=== PATIENT | male | born 1940 | race Caucasian/White ===

== ENCOUNTER 2016-11-02 10:51 | Day surgery (SDC) | payer MEDICARE, BC ==
[2016-11-02] MEDS ORDERED: CYCLOPENTOLATE 1% OPHTH DROPS 2 ML OPTH ONE (11:15)
[2016-11-02] MEDS ORDERED: TROPICAMIDE 1% OPHTH 2 ML DROPS OPTH ONE (11:15)
[2016-11-02] MEDS ORDERED: KETOROLAC 0.45% OPHTH DROPS OPTH ONE (11:15)
[2016-11-02] MEDS ORDERED: LACTATED RINGERS 500 ML IV ONE (11:20)
[2016-11-02] MEDS ORDERED: MIDAZOLAM 2 MG/2 ML VIAL IVP ONE (11:55)
[2016-11-02] MEDS ORDERED: PROPARACAINE 0.5% OPHTH DROPS 15 ML OPTH ONE (12:35)
[2016-11-02] MEDS ORDERED: BRIMONIDINE 0.2% OPHTH DROPS 5 ML OPTH ONE (12:35)
[2016-11-02] MEDS ORDERED: TETRACAINE OPHTH DROPS 2 ML OPTH ONE (12:36)
[2016-11-02] MEDS ORDERED: levoFLOXacin 0.5% OPHTH DROPS 5 ML OPTH ONE (12:36)
[2016-11-02] MEDS ORDERED: EPINEPHrine 1 MG/ML AMP IO ONE (12:36)
[2016-11-02] MEDS ORDERED: CHONDR SULF/HYALURONATE SYRINGE IO ONE (12:36)
[2016-11-02] MEDS ORDERED: BSS/LIDOCAINE/EPINEPHRINE 1 ML SYRINGE IO ONE (12:37)
== END 2016-11-02 10:52 | disposition home or self-care (01) ==
PROC: 08RK3JZ Replacement of Left Lens with Synthetic Substitute, Percutaneous Approach (ICD-10-PCS; principal; 2016-11-02 12:00)
DX: H25.12 Age-related nuclear cataract, left eye (principal); I10 Essential (primary) hypertension; Z87.891 Personal history of nicotine dependence
CPT/HCPCS: 66984; V2632

== ENCOUNTER 2016-11-30 11:59 | Day surgery (SDC) | payer MEDICARE, BC ==
[2016-11-30] MEDS ORDERED: CYCLOPENTOLATE 1% OPHTH DROPS 2 ML OPTH ONE (12:30)
[2016-11-30] MEDS ORDERED: TROPICAMIDE 1% OPHTH 2 ML DROPS OPTH ONE (12:30)
[2016-11-30] MEDS ORDERED: KETOROLAC 0.45% OPHTH DROPS OPTH ONE (12:30)
[2016-11-30] MEDS ORDERED: LACTATED RINGERS 500 ML IV ONE (12:44)
[2016-11-30] MEDS ORDERED: CHONDR SULF/HYALURONATE SYRINGE IO ONE (13:16)
[2016-11-30] MEDS ORDERED: EPINEPHrine 1 MG/ML AMP IO ONE (13:16)
[2016-11-30] MEDS ORDERED: BRIMONIDINE 0.2% OPHTH DROPS 5 ML OPTH ONE (13:16)
[2016-11-30] MEDS ORDERED: levoFLOXacin 0.5% OPHTH DROPS 5 ML OPTH ONE (13:16)
[2016-11-30] MEDS ORDERED: BSS/LIDOCAINE/EPINEPHRINE 1 ML SYRINGE IO ONE (13:16)
[2016-11-30] MEDS ORDERED: PROPARACAINE 0.5% OPHTH DROPS 15 ML OPTH ONE (13:16)
[2016-11-30] MEDS ORDERED: PROPOFOL 200 MG/20 ML VIAL IVP ONE (13:30)
[2016-11-30] MEDS ORDERED: MIDAZOLAM 2 MG/2 ML VIAL IVP ONE (13:30)
[2016-11-30] MEDS ORDERED: LIDOCAINE-MPF 2% 5 ML VIAL IM ONE (13:30)
== END 2016-11-30 12:00 | disposition home or self-care (01) ==
PROC: 08RJ3JZ Replacement of Right Lens with Synthetic Substitute, Percutaneous Approach (ICD-10-PCS; principal; 2016-11-30 13:05)
DX: H25.11 Age-related nuclear cataract, right eye (principal); I10 Essential (primary) hypertension
CPT/HCPCS: 66984; V2632

== ENCOUNTER 2017-11-02 15:13 | Emergency (ER) | payer MEDICARE, BC ==
--- NOTE | 2017-11-02 16:34 | XRAY Report ---
EXAM: CHEST RADIOGRAPHY EXAM DATE: 11/02/2017 04:21 PM. CLINICAL HISTORY: Fever cough. COMPARISON: None. TECHNIQUE: 2 views. FINDINGS: Lungs/Pleura: There are mild linear densities at both lung bases. There are streaky posterior densiti es on the lateral image. No consolidation. Upper lung zones are clear. Mediastinum: Heart size is normal. There is mild tortuosity of the aorta. Other: None. IMPRESSION: 1. Mild linear and streaky basilar densities. Differential includes atelectasis, scar, or a mild patc hy bronchopneumonia or bronchiolitis. No consolidation. [facility] Referring Provider Line: [phone] SITE ID: [id number]
[2017-11-02] MEDS ORDERED: AZITHROMYCIN 250 MG TABLET PO STA (17:04)
[2017-11-02] MEDS ORDERED: DOXYCYCLINE 100 MG TABLET PO STA (17:06)
[2017-11-02] MEDS ORDERED: OSELTAMIVIR 75 MG CAPSULE PO STA (17:06)
[2017-11-02 17:07] VITALS: BP 127/67
--- NOTE | 2017-11-02 17:09 | ED Physician Documentation ---
PD HPI URI - Stated complaint Stated Complaint: FEVER, LETHARGY - Chief complaint Chief Complaint: Fever - History obtained from History obtained from: Patient - History of Present Illness Timing - onset: Other (Sick for 2 days with fevers, chills, mild productive cough but no body aches. He is eating and drinking okay. Sent from the office to rule out flu and pneumonia.) Review of Systems Constitutional: reports: Fever, Chills. denies: Myalgias Nose: reports: Rhinorrhea / runny nose Respiratory: reports: Cough. denies: Dyspnea PD PAST MEDICAL HISTORY - Past Medical History Past Medical History: Yes Cardiovascular: Hypertension, High cholesterol Respiratory: None Endocrine/Autoimmune: None GI: None : None Psych: None Musculoskeletal: Osteoarthritis - Past Surgical History General: Appendectomy Ortho: Rotator cuff repair - Present Medications Home Medications: Ambulatory Orders Medication Instructions Recorded Confirmed Atorvastatin Calcium [Lipitor] 20 mg ORAL DAILY 07/10/14 11/02/17 Aspirin 81 mg PO DAILY 11/01/16 11/02/17 Blood Pressure Pill 11/02/17 Doxycycline Hyclate 100 mg PO BID #14 tablet 11/02/17 Oseltamivir [Tamiflu] 75 mg PO BID #10 capsule 11/02/17 - Allergies Allergies/Adverse Reactions: Allergies Allergy/AdvReac Type Severity Reaction Status Date / Time Sulfa (Sulfonamide Allergy Unknown Verified 11/02/17 15:50 Antibiotics) - Social History Does the pt smoke?: No Smoking Status: Never smoker PD ED PE NORMAL - Vitals Vital signs reviewed: Yes - General General: Alert and oriented X 3, No acute distress - HEENT HEENT: PERRL, EOMI - Neck Neck: Supple, no meningeal sign, No bony TTP - Cardiac Cardiac: RRR, No murmur - Respiratory Respiratory: Other (Rhonchi at the left base) - Back Back: No CVA TTP, No spinal TTP - Derm Derm: No rash - Neuro Neuro: Alert and oriented X 3, Normal speech Results - Vitals Vitals: Vital Signs - 24 hr 11/02/17 11/02/17 15:48 17:06 Temperature 37.8 C H 37.8 C H Heart Rate 71 73 Respiratory 18 20 Rate Blood Pressure 125/76 127/67 O2 Saturation 95 95 Oxygen O2 Source Room air - Labs Labs: Laboratory Tests 11/02/17 16:50 Influenza A (Rapid) POSITIVE H Influenza B (Rapid) Negative Influenza Types A,B Ag + H - Rads (name of study) 2v chest Radiology: EMP read contemporaneously (Streaky bibasilar densities) PD MEDICAL DECISION MAKING - ED course ED course: Relatively healthy 77-year-old gentleman who presents with both influenza and potential pneumonia and he was treated for both. Vitals are unremarkable. Departure - Departure Disposition: 01 Home, Self Care Clinical Impression: Influenza A Pneumonia Qualifiers: Pneumonia type: due to unspecified organism Laterality: bilateral Lung location : lower lobe of lung Qualified Code(s): J18.9 - Pneumonia, unspecified organism Condition: Good Record reviewed to determine appropriate education?: Yes Instructions: Pneumonia Dc, Medication: Tamiflu (Oseltamivir), ED Flu Prescriptions: Doxycycline Hyclate 100 mg PO BID #14 tablet Oseltamivir [Tamiflu] 75 mg PO BID #10 capsule Comments: Tylenol or ibuprofen as needed for fever. Drink plenty of fluids. Return if worse. Follow-up with your doctor tomorrow.
== END 2017-11-02 17:19 | disposition home or self-care (01) ==
LOC: ED 15:13
DX: J10.00 Influenza due to other identified influenza virus with unspecified type of pneumonia (principal); I10 Essential (primary) hypertension; E78.00 Pure hypercholesterolemia, unspecified
CPT/HCPCS: 71046; 87275; 87276; 99283; A9270; 80048; 83605; 85025; 87040

== ENCOUNTER 2018-11-30 13:12 | Outpatient (CLI) | payer MEDICARE, BC ==
--- NOTE | 2018-12-03 16:28 | DEXA Report ---
Reason: AGE RELATED OSTEOPOROSIS Procedure Date: 11/30/2018 Accession Number: [id number] / [id number] Procedure: DEX - Dexa Spine and/or Hip CPT Code: FULL RESULT: EXAM: Dexa Spine and/or Hip DATE: 11/30/2018 1:52 PM CLINICAL HISTORY: AGE RELATED OSTEOPOROSIS TECHNIQUE: Dual energy x-ray absorptiometry (DXA) was performed on a [employer]. Regions measured are the AP Spine, femoral neck, and if needed forearm. COMPARISON: None. In accordance with the International Society for Clinical Densitometry (ISCD) guidelines, data from previous exams may be reanalyzed using current recommendations and techniques. This is done to allow a more accurate basis for comparison with the current study. FINDINGS: The data for the lumbar spine is as follows: BMD (g/cm/cm) T-SCORE Z-SCORE REGION L1 1.520 3.0 3.9 L2 1.675 3.6 4.5 L3 2.011 6.4 7.3 L4 1.915 5.6 6.5 TOTAL 1.803 4.9 5.8 NOTE: All evaluable vertebrae are used for classification The data for the hip is as follows: BMD (g/cm/cm) T-SCORE Z-SCORE REGION Neck 1.197 1.0 2.7 TOTAL 1.287 1.3 2.6 NOTE: The femoral neck or total proximal femur, whichever is lowest, is used for classification. IMPRESSION: THE WHO CLASSIFICATION BASED ON THE INTERNATIONAL REFERENCE STANDARD IS NORMAL. THE FRACTURE RISK IS NOT INCREASED. RECOMMENDATION: Patients with diagnosis of osteoporosis or osteopenia should have regular bone mineral density assessment. For those eligible for Medicare, routine testing is allowed once every 2 years. Testing frequency can be increased for patients who have rapidly progressing disease or for those who are receiving medical therapy to restore bone mass. COMMENT: World Health Organization (WHO) definitions for osteoporosis and osteopenia: NORMAL BMD: T-score at -1.0 or higher, fracture risk is low OSTEOPENIA BMD: T-score between -1.0 and -2.5, fracture risk is increased. OSTEOPOROSIS BMD: T-score at -2.5 or lower, fracture risk is high. National Osteoporosis Foundation recommends: 1. Obtain adequate dietary calcium (at least 1200 mg per day) and vitamin D (400-800 international units per day). 2. Participate, as appropriate, in regular weightbearing and muscle-strengthening exercise. 3. Avoid tobacco use and reduce alcohol and caffeine intake. 4. For more detailed information see the website at www.NOF.org.
== END 2018-11-30 13:13 | disposition home or self-care (01) ==
LOC: DI 13:12
PROVIDERS: ATTEND Family Medicine
DX: M81.0 Age-related osteoporosis without current pathological fracture (principal); M40.209 Unspecified kyphosis, site unspecified
CPT/HCPCS: 77080

== ENCOUNTER 2019-07-09 21:06 | Outpatient (CLI) | payer MEDICARE, BC | END 2019-07-09 21:07 | disposition short-term general hospital (02) | LOC: EMS 21:06 | PROVIDERS: ATTEND Surgery | DX: R55 Syncope and collapse (principal) | CPT/HCPCS: A0425; A0429 ==

== ENCOUNTER 2019-10-31 08:48 | Outpatient (CLI) | payer MEDICARE | END 2019-10-31 08:49 | disposition EMS.NT | LOC: EMS 08:48 | PROVIDERS: ATTEND Surgery | DX: R06.02 Shortness of breath (principal) ==

== ENCOUNTER 2020-09-29 11:06 | Outpatient (CLI) | payer MEDICARE, OTHER ==
[2020-09-29 16:13] LABS: ALBUMIN 4.4 g/dL (3.2-5.5); ALBUMIN/GLOBULIN RATIO 1.7 (1.0-2.2); BILIRUBIN,TOTAL 0.6 mg/dL (0.2-1.0); CALCIUM 9.2 mg/dL (8.5-10.3); CREATININE 0.8 mg/dL (0.6-1.2)
== END 2020-09-29 11:07 | disposition home or self-care (01) ==
LOC: LAB.S 11:06
PROVIDERS: ATTEND Internal Medicine
DX: Z00.00 Encounter for general adult medical examination without abnormal findings (principal)
CPT/HCPCS: 36415; 80053; 85025

== ENCOUNTER 2020-10-05 07:41 | Outpatient (CLI) | payer MEDICARE, OTHER ==
[2020-10-05 15:18] LABS: BASOPHILS % (AUTO) 0.2 %; EOSINOPHILS # (AUTO) 0.3 10^3/uL (0.0-0.7); EOSINOPHILS % (AUTO) 5.2 %; HGB - HEMOGLOBIN 13.4 g/dL (14.0-18.0); LYMPHOCYTES # (AUTO) 0.7 10^3/uL (1.5-3.5); MEAN CORPUSCULAR HGB CONC 32.6 g/dL (32.0-36.0); MEAN CORPUSCULAR VOLUME 95.1 fL (80.0-94.0); MEAN PLATELET VOLUME 10.7 fL (7.4-11.4); MONOCYTES # (AUTO) 0.6 10^3/uL (0.0-1.0); MONOCYTES % (AUTO) 12.8 %; NEUTROPHILS # (AUTO) 3.4 10^3/uL (1.5-6.6); NEUTROPHILS % (AUTO) 68.4 %; PLT - PLATELET COUNT 159 10^3/uL (130-450); RED BLOOD COUNT 4.32 10^6/uL (4.70-6.10); RED CELL DISTRIBUTION WIDTH 13.7 % (12.0-15.0)
== END 2020-10-05 07:42 | disposition home or self-care (01) ==
LOC: LAB.S 07:41
PROVIDERS: ATTEND Internal Medicine
DX: I48.0 Paroxysmal atrial fibrillation (principal); Z79.899 Other long term (current) drug therapy; R27.9 Unspecified lack of coordination
CPT/HCPCS: 36415; 85025

== ENCOUNTER 2020-10-13 14:37 | Outpatient (CLI) | payer MEDICARE, OTHER | END 2020-10-13 14:38 | disposition home or self-care (01) | LOC: LAB.S 14:37 | PROVIDERS: ATTEND Internal Medicine | DX: R35.8 Other polyuria (principal); R35.1 Nocturia | CPT/HCPCS: 36415; 84153 ==

== ENCOUNTER 2020-11-10 21:07 | Outpatient (CLI) | payer MEDICARE, OTHER | END 2020-11-10 21:08 | disposition critical access hospital (66) | LOC: EMS 21:07 | PROVIDERS: ATTEND Surgery | DX: S01.91XA Laceration without foreign body of unspecified part of head, initial encounter (principal); W06.XXXA Fall from bed, initial encounter; W22.03XA Walked into furniture, initial encounter; Y93.89 Activity, other specified; Y92.003 Bedroom of unspecified non-institutional (private) residence as the place of occurrence of the external cause | CPT/HCPCS: A0425; A0429 ==

== ENCOUNTER 2020-11-10 21:33 | Emergency (ER) | payer MEDICARE, OTHER ==
--- NOTE | 2020-11-10 21:43 | ED Physician Documentation ---
PD HPI Fall - Stated complaint Stated Complaint: FALL - History obtained from History obtained from: Patient - History of Present Illness Mechanism of injury: Lost balance (He states he was sitting on the edge of the bed and slipped and fell backwards from sitting position and struck his head on furniture. He noted bleeding laceration. No loss of consciousness. Denied neck pain. Had a small skin tear on the elbow and side of the face. EMS was called.) Fall distance: Sitting position Where injury occurred: Home Timing - onset: How many minutes ago (30), Today Injury(ies) location: Head (left occiput), Face (lateral periorbital left), Left Uppper Extremity (lateral elbow) Associated symptoms: No: LOC, AMS, Nausea / vomiting Worsens with: Palpation Contributing factors: Anticoagulated. No: Intoxicated Similar symptoms before: Has not had sx before Recently seen: Not recently seen Review of Systems Constitutional: denies: Fever, Chills Nose: denies: Rhinorrhea / runny nose, Congestion Throat: denies: Sore throat Respiratory: denies: Cough GI: denies: Nausea, Vomiting, Diarrhea Neurologic: denies: Focal weakness, Numbness, Altered mental status PD PAST MEDICAL HISTORY - Past Medical History Cardiovascular: Hypertension, High cholesterol Respiratory: None Endocrine/Autoimmune: None GI: None : None Psych: None Musculoskeletal: Osteoarthritis - Past Surgical History General: Appendectomy Ortho: Rotator cuff repair - Present Medications Home Medications: Ambulatory Orders Medication Instructions Recorded Confirmed Atorvastatin Calcium [Lipitor] 20 mg ORAL DAILY 07/10/14 11/02/17 Aspirin 81 mg PO DAILY 11/01/16 11/02/17 Blood Pressure Pill 11/02/17 Doxycycline Hyclate 100 mg PO BID #14 tablet 11/02/17 Oseltamivir [Tamiflu] 75 mg PO BID #10 capsule 11/02/17 - Allergies Allergies/Adverse Reactions: Allergies Allergy/AdvReac Type Severity Reaction Status Date / Time Sulfa (Sulfonamide Allergy Unknown Verified 11/02/17 15:50 Antibiotics) - Social History Does the pt smoke?: No Smoking Status: Never smoker PD ED PE NORMAL - Vitals Vital signs reviewed: Yes - General General: Alert and oriented X 3, No acute distress, Well developed/nourished - HEENT HEENT: PERRL, EOMI (Left lateral periorbital area with a superficial skin tear about 1 cm. Not full-thickness.), Moist mucous membranes, Pharynx benign, Other (The patient has a Kerlix wrap wrapped circumferentially around his head. There is saturation of blood in the posterior aspect of this and down behind his head. He is in a cervical collar but not on a backboard. He is awake and conversant. dressing removed and spurting blood noted from 3 cm lac.) - Neck Neck: Supple, no meningeal sign, No bony TTP, No adenopathy - Respiratory Respiratory: No respiratory distress, Clear bilaterally - Abdomen Abdomen: Soft, Non tender - Back Back: No spinal TTP - Derm Derm: Normal color, Warm and dry - Extremities Extremities: Other (Lateral left elbow with the partial thickness tear of skin about 1-1/2 cm. Full range of motion of the elbow without any effusion nor bony tenderness.) - Neuro Neuro: Alert and oriented X 3, No motor deficit, Normal speech Results - Vitals Vitals: Vital Signs - 24 hr 11/10/20 11/11/20 11/11/20 21:40 00:16 02:00 Temperature 36.9 C 36.6 C 36.6 C Heart Rate 69 54 L 69 Respiratory 18 16 18 Rate Blood Pressure 183/103 H 122/74 121/57 L O2 Saturation 100 99 98 11/11/20 02:16 Temperature 36.7 C Heart Rate 69 Respiratory 18 Rate Blood Pressure 121/57 L O2 Saturation 98 Oxygen O2 Source Room air - Labs Labs: Laboratory Tests 11/10/20 11/10/20 22:25 22:25 WBC 6.0 RBC 3.99 L Hgb 12.2 L Hct 36.6 L MCV 91.7 MCH 30.6 MCHC 33.3 RDW 13.5 Plt Count 144 MPV 9.6 Neut # (Auto) 4.2 Lymph # (Auto) 0.8 L Kaufman # (Auto) 0.9 Eos # (Auto) 0.2 Baso # (Auto) 0.0 Absolute Nucleated RBC 0.00 Nucleated RBC % 0.0 Sodium 129 L Potassium 4.0 Chloride 94 L Carbon Dioxide 26 Anion Gap 9.0 BUN 21 H Creatinine 1.0 Estimated GFR (MDRD) 72 L Glucose 126 H Calcium 8.6 Total Bilirubin 0.6 AST 30 ALT 21 Alkaline Phosphatase 100 Total Protein 6.5 L Albumin 4.0 Globulin 2.5 Albumin/Globulin Ratio 1.6 Lipase 21 L - Rads (name of study) head CT Radiology: Prelim report reviewed (no intracranial process), See rad report Procedures - Laceration (location) left upper occipital Length in cm: 3 Wound type: Linear, Into muscle, Clean Neurovascular status: Sensory intact Anesthesia: Lidocaine 2% with epi Wound Preparation: Wound explored (The wound had brisk small arterial bleeding ongoing. It was anesthetized quickly and cleansed with saline quickly as well. Vicryl stitch was used to ligate the area of the bleeding vessel with mostly cessation of the bleeding. Running suture of the scalp was then placed with then complete stoppag), To the base Deep layer closure: Vicryl, size #-0 - enter number (4), # sutures - enter number (3) Skin layer closure: Nylon, Running, Size #-0 - enter number (4), Sutures - enter # (10) PD MEDICAL DECISION MAKING - ED course Complexity details: re-evaluated patient (Now it is not the patient did have a reasonable blood loss a while prehospital and having the sutures placed. He was lightheaded with sitting up subsequently. He was given IV fluids with improvement in his blood pressure and orthostasis.), considered differential (Benzoin and Steri-Strips were placed over the small skin tear left periorbital and left elbow.), d/w patient Departure - Departure Disposition: 01 Home, Self Care Clinical Impression: Anticoagulant long-term use Accidental fall Qualifiers: Encounter type: initial encounter Qualified Code(s): W19.XXXA - Unspecified fall, initial encounter Scalp laceration Qualifiers: Encounter type: initial encounter Qualified Code(s): S01.01XA - Laceration without foreign body of scalp, initial encounter Laceration of periorbital area Qualifiers: Encounter type: initial encounter Qualified Code(s): S01.81XA - Laceration without foreign body of other part of head, initial encounter Elbow laceration Qualifiers: Encounter type: initial encounter Laterality: left Qualified Code(s): S51.012A - Laceration without foreign body of left elbow, initial encounter Condition: Stable Record reviewed to determine appropriate education?: Yes Instructions: ED Laceration Scalp Stitch Or Stap Comments: It is okay to wash and shower. Clean off the wound twice a day with soap and water, or peroxide and water. Apply some antibiotic ointment to it to keep it moist. Also to watch for signs of infection such as purulence, redness or incr easing pain. Return to your primary care or the ER at the specified time for suture removal. Suture removal in the scalp in about 10 days. It is okay to wash and shower there. Try to not get the Steri-Strips on the elbow and face directly wet but allow them to fall off on their own after several days or more. Tylenol if needed for pains. Continue usual medications. Discharge Date/Time: 11/11/20 02:17
[2020-11-11 00:11] LABS: ALBUMIN/GLOBULIN RATIO 1.6 (1.0-2.2); BILIRUBIN,TOTAL 0.6 mg/dL (0.2-1.0); CALCIUM 8.6 mg/dL (8.5-10.3); TOTAL PROTEIN 6.5 g/dL (6.7-8.2)
[2020-11-11 00:13] LABS: BASOPHILS % (AUTO) 0.2 %; EOSINOPHILS # (AUTO) 0.2 10^3/uL (0.0-0.7); HGB - HEMOGLOBIN 12.2 g/dL (14.0-18.0); LYMPHOCYTES # (AUTO) 0.8 10^3/uL (1.5-3.5); LYMPHOCYTES % (AUTO) 12.8 %; MEAN CORPUSCULAR HEMOGLOBIN 30.6 pg (27.0-31.0); MEAN CORPUSCULAR HGB CONC 33.3 g/dL (32.0-36.0); MEAN CORPUSCULAR VOLUME 91.7 fL (80.0-94.0); MEAN PLATELET VOLUME 9.6 fL (7.4-11.4); MONOCYTES # (AUTO) 0.9 10^3/uL (0.0-1.0); MONOCYTES % (AUTO) 14.1 %; NEUTROPHILS # (AUTO) 4.2 10^3/uL (1.5-6.6); NEUTROPHILS % (AUTO) 69.4 %; PLT - PLATELET COUNT 144 10^3/uL (130-450); RED BLOOD COUNT 3.99 10^6/uL (4.70-6.10); RED CELL DISTRIBUTION WIDTH 13.5 % (12.0-15.0)
[2020-11-11] MEDS ORDERED: SODIUM CHLORIDE 0.9% 1,000 ML IV STA (00:38)
[2020-11-11 02:02] VITALS: BP 121/57
--- OUTSIDE RECORDS SUMMARY | 2020-11-11 04:56 | EXTERNAL MEDICAL SUMMARY RPT | Continuity of Care Document ---
:1940 Demographics Phone Unavailable Preferred Language Cape Verdean Marital Status Unknown Episcopalian Affiliation Unknown Race Unknown Ethnic Group Unknown Author Organization [place] Address [address] [phone] Phone Care Team Providers Name Role Phone Rachid VALLADARES, Unavailable Unavailable Rachid Mcneill Unavailable Unavailable Problems date description facility 2020-09-29 11:06 [facility] MEDICAL EXAM W/O ABNORMAL FINDINGS 2020-09-30 00:00:00 Long-term (current) drug use [facility] 2020-09-30 00:00:00 COMPREHENSIVE METABOLIC PANEL [facility] 2020-09-30 00:00:00 CBC W/Diff/Plt [facility] 2020-09-30 00:00:00 Other [facility]cf (current) drug [facility] therapy [facility] 2020-09-30 00:00:00 Long-term drug therapy [facility] 2020-10-05 07:41 PAROXYSMAL ATRIAL FIBRILLATION [facility] 2020-10-05 07:41 OTHER NURSING HOME (CURRENT) DRUG [facility] THERAPY 2020-10-07 00:00:00 [facility] 2020-10-07 00:00:00 Polyuria [facility] 2020-10[facility]07 00:00[facility]00 [facility] [place]07 00:00:00 [facility] hyponat[facility] 2020-10-07 00:00:00 [facility]07 00:00:00 Tobacco use and exposure [facility] 2020-10-07 00:00:00 Tobacco [facility] 2020-10-07 00:00:00 [facility] 2020-10-07 00:00:00 [facility] 2020-10-13 00:00:00 Impacted cerumen [facility] 2020-10-13 00:00:00 Retained foreign body of middle [facility] Primary [facility] 2020-10-13 00:00:00 Impacted cerumen, unspecified [facility] Primary [facility] 2020-10-13 00:00:00 Other specified disorders of [facility] Primary [facility] left middle ear and mastoid [facility] 2020-10-13 00:00:00 Alcohol intake [facility] 2020-10-13 00:00:00 Health-related behavior [facility] 2020-10-13 00:00:00 Tobacco use and exposure [facility] Primary [facility] 2020-10-13 00:00:00 Exercise [facility] 2020-10-13 00:00:00 Details of drug misuse behavior [facility] 2020-10-13 00:00:00 How many standard drinks [facility] Care containing alcohol do you have [facility] on a typical day? 2020-10-13 00:00:00 How often do you have 6 or more [facility] Primary [facility] drinks on 1 occasion? [facility] 2020-10-13 00:00:00 [facility] use [facility] 2020-10-13 00:00:00 [facility] 2020-10-13 00:00:00 Total score? [facility] 2020-10-13 00:00:00 Former smoker [facility] 2020-10-13 14:37 NO[facility]URIA [facility] 2020-10-13 14:37 [facility] 2020-10-27 00:00:00 [facility]ality [facility]or [facility] hyponatremia [facility] 2020-10-27 00:00:00 Hypo-osmolality [facility] hyponat[facility] 2020-10-27 00:00:00 [facility] 2020-10-27 00:00:00 Tobacco [facility] status [facility] 2020-10-27 00:00:00 [facility] 2020-10-27 00:00:00 Hyponatremia [facility] Prim [facility] Allergies date description facility BEE VENOM [facility] HY[facility] HY[facility]OXYCHLOROQUINE SULFATE [facility] HYDROXYCHLOROQUINE [facility] LEFLUNOMIDE [facility] OXYCODONE-ACETAMINOPHEN [facility] NO KNOWN ENVIRONMENTAL ALLERGIES [facility] MORPHINE [facility] PENICILLINS [facility] NO KNOWN ALLERGIES [facility] ZOLPIDEM [facility] TRAZODONE [facility] LISINOPRIL [facility] DOXYCYCLINE [facility] HYDROCODONE [facility] LORAZEPAM [facility] METRONIDAZOLE [facility] MIDAZOLAM [facility] OXYCODONE [facility] SULFA (SULFONAMIDE ANTIBIOTICS) [facility] NO KNOWN ALLERGIES [facility] ASPIRIN [facility] CEPHALEXIN [facility] CLINDAMYCIN [facility] POVIDONE-IODINE [facility] MEPERIDINE (PF) [facility] Medications date description facility 2020-10-27 00:00:00 null [facility] 2020-10-27 00:00:00 null [facility] 2020-10-27 00:00:00 null [facility] 2020-10-27 00:00:00 null [facility] 2020-10-27 00:00:00 TAMSULOSIN HCL [facility] 2020-10-27 00:00:00 OXYBUTYNIN CHLORIDE [facility] 2020-10-27 00:00:00 OXYBUTYNIN CHLORIDE [facility] 2020-10-27 00:00:00 TAMSULOSIN HCL [facility] Procedures date description facility 2020-09-30 00:00:00 COMPREHENSIVE METABOLIC PANEL [facility] date description facility 2020-09-30 00:00:00 CBC W/Diff/Plt [facility] date description facility 2020-09-30 00:00:00 [facility] date description facility 2020-10-07 00:00:00 PSA, DIAGNOSTIC [facility] date description facility 2020-10-07 00:00:00 [facility] date description facility 2020-10-13 00:00:00 EAR LAVAGE, UNILATERAL [facility] date description facility 2020-10-13 00:00:00 [facility] Results Social History date description facility 2020-10-07 00:00:00 Former smoker [facility] date description facility 2020-10-13 00:00:00 Former smoker [facility] date description facility 2020-10-27 00:00:00 [facility] Social History date description facility 2020-10-07 00:00:00 [facility] smoker [facility] date description facility 2020-10-13 00:00:00 [facility] 2020-10-27 00:00[facility]00 [facility] facility [phone]
--- NOTE | 2020-11-11 08:01 | CT Report ---
PROCEDURE: HEAD WO INDICATIONS: FALL, STRUCK HEAD ON ELIQUIS, STRUCK TOP OF HEAD LEFT SIDE TECHNIQUE: Noncontrast 4.5 mm thick angled axial sections acquired from the foramen magnum to the vertex. For r adiation dose reduction, the following was used: automated exposure control, adjustment of mA and/or kV according to patient size. COMPARISON: None. FINDINGS: Image quality: Excellent. CSF spaces: Basal cisterns are patent. No extra-axial fluid collections. There is mild cerebral vol ume loss with prominence of the ventricles and sulci. Brain: No intracranial hemorrhage, mass, or mass effect. There are periventricular and subcortical w gabriela matter hypodensities compatible with mild chronic small vessel ischemic changes. Dahl-white elias er interface is normal. Skull and face: Calvarium and visualized facial bones appear intact. There is a small left parietal scalp hematoma near the vertex. Sinuses: Visualized sinuses and mastoids are clear. IMPRESSION: 1. No acute intracranial abnormality. 2. Mild chronic white matter small vessel ischemic changes and cerebral volume loss. 3. Left parietal scalp hematoma near the vertex. No evidence of calvarial fracture. Concordant with preliminary report. Reviewed by: Brennan Parsons MD on 11/11/2020 7:59 AM PST Approved by: Brennan Parsons MD on 11/11/2020 7:59 AM PST Station ID: [id number]
== END 2020-11-11 02:17 | disposition home or self-care (01) ==
LOC: EDUNIT# → ED 21:33
DX: S01.01XA Laceration without foreign body of scalp, initial encounter (principal); S01.112A Laceration without foreign body of left eyelid and periocular area, initial encounter; S51.012A Laceration without foreign body of left elbow, initial encounter; W06.XXXA Fall from bed, initial encounter; Y92.003 Bedroom of unspecified non-institutional (private) residence as the place of occurrence of the external cause; I10 Essential (primary) hypertension; Z79.01 Long term (current) use of anticoagulants
CPT/HCPCS: 13121; 36415; 70450; 80053; 83690; 85025

== ENCOUNTER 2020-11-14 14:46 | Emergency (ER) | payer MEDICARE, OTHER ==
--- NOTE | 2020-11-14 15:03 | ED Physician Documentation ---
PD HPI BACK PAIN - Stated complaint Stated Complaint: SIDE PX - Chief complaint Chief Complaint: Trauma Ch/Bk - History obtained from History obtained from: Patient - Additional information Additional information: 80-year-old gentleman was seen here 4 days ago. Had a fall with a head injury with profuse bleeding and a skin tear on the left elbow. Has noted over the last couple of days sharp pain in the left ribs when he coughs or sneezes. Not too bad at rest and declines pain medication on initial evaluation. He is not short of breath. No cough. No persistent headaches or significant elbow pain. Review of Systems Constitutional: reports: Reviewed and negative Eyes: reports: Reviewed and negative Nose: reports: Reviewed and negative Respiratory: reports: Reviewed and negative PD PAST MEDICAL HISTORY - Past Medical History Cardiovascular: Hypertension, High cholesterol Respiratory: None Endocrine/Autoimmune: None GI: None : None Psych: None Musculoskeletal: Osteoarthritis - Past Surgical History General: Appendectomy Ortho: Rotator cuff repair - Present Medications Home Medications: Ambulatory Orders Medication Instructions Recorded Confirmed Atorvastatin Calcium [Lipitor] 20 mg ORAL DAILY 07/10/14 11/14/20 Aspirin 81 mg PO DAILY 11/01/16 11/14/20 Blood Pressure Pill 5 mg PO BID 11/02/17 11/14/20 Amiodarone [Pacerone] 100 mg PO DAILY 11/14/20 11/14/20 Apixaban [Eliquis] 5 mg PO BID 11/14/20 11/14/20 FLUoxetine [PROzac] 10 mg PO DAILY 11/14/20 11/14/20 Furosemide [Lasix] 20 mg PO DAILY 11/14/20 11/14/20 HYDROcod/ACETAM 5/325 [Brinson 5/325] 1 - 2 tab PO Q6H PRN #20 tablet 11/14/20 Potassium Chloride 20 meq PO DAILY 11/14/20 11/14/20 Tamsulosin [Flomax] 0.4 mg PO DAILY 11/14/20 11/14/20 - Allergies Allergies/Adverse Reactions: Allergies Allergy/AdvReac Type Severity Reaction Status Date / Time Sulfa (Sulfonamide Allergy Unknown Verified 11/14/20 14:50 Antibiotics) - Social History Does the pt smoke?: No Smoking Status: Never smoker PD ED PE NORMAL - Vitals Vital signs reviewed: Yes - General General: Alert and oriented X 3, No acute distress - HEENT HEENT: PERRL, EOMI - Neck Neck: Supple, no meningeal sign, No bony TTP - Cardiac Cardiac: RRR, No murmur - Respiratory Respiratory: No respiratory distress, Clear bilaterally, Other - Back Back: No spinal TTP, Other (I am unable to reproduce any tenderness in the left chest. No visible ecchymosis or deformity. He does wince with twisting or motion though.) - Neuro Neuro: Alert and oriented X 3, Normal speech Results - Vitals Vitals: Vital Signs - 24 hr 11/14/20 11/14/20 14:50 15:22 Temperature 36.2 C L Heart Rate 67 69 Respiratory 18 16 Rate Blood Pressure 151/87 H 149/100 H O2 Saturation 95 99 Oxygen O2 Source Room air - Rads (name of study) L ribs and chest Radiology: EMP read contemporaneously (L 5th/6th/7th rib fractures. No PTX.) PD MEDICAL DECISION MAKING - ED course ED course: This is a gudino 80-year-old gentleman that fell 4 days ago with a head injury and elbow injury but what bothers him most now are his left ribs. He is not in extremis and declines pain medications while here but does need something for nighttime use. X-ray imaging demonstrates 3 mildly displaced rib fractures. No pneumothorax. RT gave him an incentive spirometer and teaching. Departure - Departure Disposition: 01 Home, Self Care Clinical Impression: Closed rib fracture Qualifiers: Encounter type: initial encounter Rib fracture type: multiple ribs Laterality: left Qualified Code(s): S22.42XA - Multiple fractures of ribs, left side, initial encounter for closed fracture Condition: Good Record reviewed to determine appropriate education?: Yes Instructions: ED Fx Rib Prescriptions: HYDROcod/ACETAM 5/325 [Brinson 5/325] 1 - 2 tab PO Q6H PRN #20 tablet PRN Reason: Pain Comments: Use the incentive spirometer several times a day to improve aeration in the lungs under the rib fractures. Return for new or worsening symptoms. Do not drink or drive while taking prescription pain medication. Follow-up with your doctor as scheduled next week. Discharge Date/Time: 11/14/20 15:50
[2020-11-14 15:24] VITALS: BP 149/100
--- NOTE | 2020-11-14 15:52 | XRAY Report ---
PROCEDURE: Ribs w/PA Chest LT INDICATIONS: Rib injury TECHNIQUE: 3 views of the left ribs were acquired, along with a single view chest. COMPARISON: Correlation is made with prior chest radiograph 11/02/2017 FINDINGS: Surgical changes and devices: An apparently spacer can be seen. A percutaneously placed aortic valve prosthesis can be seen. Bones and chest wall: Mildly displaced left lateral fifth and sixth and seventh rib fractures can be seen. No dislocations. No suspicious bony lesions. Overlying soft tissues appear unremarkable. Age -appropriate degenerative changes are seen. Lungs and pleura: No pleural effusions or pneumothorax. Lungs appear clear. Mediastinum: The aorta is prominent and tortuous. The cardiac contours are within normal limits. IMPRESSION: Mildly displaced left lateral fifth and sixth and seventh rib fractures can be seen. No pneumothorax is seen. Postoperative and degenerative changes are seen. Reviewed by: Kishan Zelaya MD on 11/14/2020 2:50 PM [place] Approved by: Kishan Zelaya MD on 11/14/2020 2:50 PM [facility] Station ID: [id number]
== END 2020-11-14 15:50 | disposition home or self-care (01) ==
LOC: ED 14:46
DX: S22.42XA Multiple fractures of ribs, left side, initial encounter for closed fracture (principal); W06.XXXA Fall from bed, initial encounter; I10 Essential (primary) hypertension; Z79.82 Long term (current) use of aspirin
CPT/HCPCS: 99283; 99284

== ENCOUNTER 2020-12-10 09:20 | Outpatient (CLI) | payer MEDICARE, OTHER ==
[2020-12-10 14:54] LABS: BASOPHILS % (AUTO) 0.4 %; EOSINOPHILS # (AUTO) 0.2 10^3/uL (0.0-0.7); EOSINOPHILS % (AUTO) 4.4 %; HGB - HEMOGLOBIN 12.7 g/dL (14.0-18.0); LYMPHOCYTES # (AUTO) 0.6 10^3/uL (1.5-3.5); LYMPHOCYTES % (AUTO) 11.7 %; MEAN CORPUSCULAR HEMOGLOBIN 29.7 pg (27.0-31.0); MEAN CORPUSCULAR HGB CONC 31.9 g/dL (32.0-36.0); MEAN PLATELET VOLUME 10.5 fL (7.4-11.4); MONOCYTES # (AUTO) 0.7 10^3/uL (0.0-1.0); NEUTROPHILS # (AUTO) 3.8 10^3/uL (1.5-6.6); NEUTROPHILS % (AUTO) 70.1 %; PLT - PLATELET COUNT 196 10^3/uL (130-450); RED BLOOD COUNT 4.28 10^6/uL (4.70-6.10); RED CELL DISTRIBUTION WIDTH 13.9 % (12.0-15.0); WHITE BLOOD COUNT 5.5 x10^3/uL (4.8-10.8)
[2020-12-10 15:22] LABS: CHOL/HDL RATIO 2.9 (<5.0); CHOLESTEROL 156 mg/dL; HDL CHOLESTEROL 53 mg/dL
== END 2020-12-10 09:21 | disposition home or self-care (01) ==
LOC: LAB.S 09:20
PROVIDERS: ATTEND Internal Medicine Cardiovascular Disease
DX: E78.2 Mixed hyperlipidemia (principal); I48.19 Other persistent atrial fibrillation
CPT/HCPCS: 36415; 80061; 83721; 85025

== ENCOUNTER 2020-12-22 12:22 | Outpatient (CLI) | payer MEDICARE, OTHER | END 2020-12-22 12:23 | disposition critical access hospital (66) | LOC: EMS 12:22 | PROVIDERS: ATTEND Emergency Medicine | DX: R10.30 Lower abdominal pain, unspecified (principal); R11.14 Bilious vomiting | CPT/HCPCS: A0425; A0427 ==

== ENCOUNTER 2020-12-22 12:53 | Inpatient (IN) | payer MEDICARE, OTHER ==
[2020-12-22 13:17] LABS: BASOPHILS % (AUTO) 0.2 %; EOSINOPHILS % (AUTO) 0.1 %; HGB - HEMOGLOBIN 13.1 g/dL (14.0-18.0); LYMPHOCYTES # (AUTO) 0.5 10^3/uL (1.5-3.5); LYMPHOCYTES % (AUTO) 5.9 %; MEAN CORPUSCULAR HEMOGLOBIN 30.3 pg (27.0-31.0); MEAN CORPUSCULAR HGB CONC 33.1 g/dL (32.0-36.0); MEAN CORPUSCULAR VOLUME 91.5 fL (80.0-94.0); MEAN PLATELET VOLUME 10.1 fL (7.4-11.4); MONOCYTES # (AUTO) 0.6 10^3/uL (0.0-1.0); MONOCYTES % (AUTO) 6.5 %; PLT - PLATELET COUNT 155 10^3/uL (130-450); RED BLOOD COUNT 4.33 10^6/uL (4.70-6.10); RED CELL DISTRIBUTION WIDTH 13.8 % (12.0-15.0); WHITE BLOOD COUNT 9.2 x10^3/uL (4.8-10.8)
--- NOTE | 2020-12-22 13:19 | ED Physician Documentation ---
PD HPI ABD PAIN - Stated complaint Stated Complaint: ABD PX - Chief complaint Chief Complaint: Abd Pain - History obtained from History obtained from: Patient, EMS - History of Present Illness Timing - onset: How many hours ago (5), Today (about 8 am) Timing - duration: Hours (5) Timing - details: Abrupt onset, Still present, Waxing and waning Quality: Cramping, Aching, Pain Location: Periumbilical Radiation: No: Chest, Lower back Improved by: No: Vomiting (emesis once, but continued nausea), BM (had one looser dark BM this morning. Had been having normal BMs the past several days.) Worsened by: Eating Associated symptoms: Nausea, Vomiting, Loss of appetite. No: Fever, Hematemesis, Diarrhea, Chest pain, Weight loss Similar symptoms before: Has not had sx before Recently seen: Not recently seen Review of Systems Constitutional: denies: Fever, Chills Nose: denies: Rhinorrhea / runny nose, Congestion Throat: denies: Sore throat Cardiac: denies: Chest pain / pressure Respiratory: denies: Dyspnea, Cough GI: reports: Abdominal Pain, Nausea, Vomiting, Diarrhea (single episode loose stool this morning, states dark but not bloody.). denies: Constipation : denies: Dysuria, Frequency Skin: denies: Rash Neurologic: denies: Focal weakness, Numbness PD PAST MEDICAL HISTORY - Past Medical History Cardiovascular: Hypertension, High cholesterol, Valve disorder, Other (abd aneurysm, being followed. PVD. ) Respiratory: None Endocrine/Autoimmune: None GI: None : None Psych: None Musculoskeletal: Osteoarthritis - Past Surgical History Past Surgical History: Yes General: Appendectomy Ortho: Rotator cuff repair Cardiovascular: Valve replacement (aortic, mechanical, on anticoag. ), Other - Present Medications Home Medications: Ambulatory Orders Medication Instructions Recorded Confirmed Atorvastatin Calcium [Lipitor] 20 mg ORAL DAILY 07/10/14 12/22/20 Aspirin 81 mg PO DAILY 11/01/16 12/22/20 Amiodarone [Pacerone] 100 mg PO DAILY 11/14/20 12/22/20 Apixaban [Eliquis] 5 mg PO BID 11/14/20 12/22/20 FLUoxetine [PROzac] 10 mg PO DAILY 11/14/20 12/22/20 Furosemide [Lasix] 20 mg PO DAILY 11/14/20 12/22/20 Potassium Chloride 20 meq PO DAILY 11/14/20 12/22/20 Tamsulosin [Flomax] 0.4 mg PO DAILY 11/14/20 12/22/20 Oxybutynin [Ditropan] 5 mg PO DAILY 12/22/20 12/22/20 - Allergies Allergies/Adverse Reactions: Allergies Allergy/AdvReac Type Severity Reaction Status Date / Time Sulfa (Sulfonamide Allergy Unknown Verified 12/22/20 13:00 Antibiotics) - Living Situation Living Situation: reports: With spouse/s.o. Living Arrangement: reports: At home - Social History Does the pt smoke?: No Smoking Status: Never smoker Does the pt drink ETOH?: Yes Does the pt have substance abuse?: No - Immunizations Immunizations are current?: Yes - POLST Patient has POLST: No PD ED PE NORMAL - Vitals Vital signs reviewed: Yes - General General: Alert and oriented X 3, Well developed/nourished, Other (moderate discomfort. ) - HEENT HEENT: Moist mucous membranes, Pharynx benign - Neck Neck: Supple, no meningeal sign, No adenopathy - Cardiac Cardiac: RRR, No rub, Other (mechanical valve sounds left chest. ) - Respiratory Respiratory: Clear bilaterally - Abdomen Abdomen: Soft, No organomegaly, Other (tender with some distension mid abd. No noted hernia. Inguinal areas normal. Prior appy scar noted. ). No: Normal bowel sounds (increased) - Male Male : Deferred - Rectal Rectal: Deferred - Derm Derm: Normal color, Warm and dry - Neuro Neuro: Alert and oriented X 3, No motor deficit, Normal speech Results - Vitals Vitals: Vital Signs - 24 hr 12/22/20 12/22/20 13:00 15:02 Temperature 36.8 C Heart Rate 53 L 75 Respiratory 18 18 Rate Blood Pressure 164/75 H 142/79 H O2 Saturation 99 97 Oxygen O2 Source Room air - Labs Labs: Laboratory Tests 12/22/20 12/22/20 12/22/20 13:13 13:13 13:56 WBC 9.2 RBC 4.33 L Hgb 13.1 L Hct 39.6 L MCV 91.5 MCH 30.3 MCHC 33.1 RDW 13.8 Plt Count 155 MPV 10.1 Neut # (Auto) 8.0 H Lymph # (Auto) 0.5 L Spink # (Auto) 0.6 Eos # (Auto) 0.0 Baso # (Auto) 0.0 Absolute Nucleated RBC 0.00 Nucleated RBC % 0.0 PT 14.7 H INR 1.3 H APTT 24.3 L Sodium 135 Potassium 3.5 Chloride 98 L Carbon Dioxide 22 Anion Gap 15.0 H BUN 21 H Creatinine 0.8 Estimated GFR (MDRD) 93 Glucose 145 H Lactic Acid Calcium 9.2 Magnesium Total Bilirubin 0.7 AST 34 ALT 22 Alkaline Phosphatase 129 H Total Protein 7.1 Albumin 4.3 Globulin 2.8 Albumin/Globulin Ratio 1.5 Lipase 23 Urine Color Urine Clarity Urine pH Ur Specific [place] Urine Protein Urine Glucose (UA) Urine Ketones Urine Occult Blood Urine Nitrite Urine Bilirubin Urine Urobilinogen Ur Leukocyte Esterase Ur Microscopic Review Urine Culture Comments 12/22/20 12/22/20 12/22/20 13:56 14:38 16:06 WBC RBC Hgb Hct MCV MCH MCHC RDW Plt Count MPV Neut # (Auto) Lymph # (Auto) Spink # (Auto) Eos # (Auto) Baso # (Auto) Absolute Nucleated RBC Nucleated RBC % PT INR APTT Sodium Potassium Chloride Carbon Dioxide Anion Gap BUN Creatinine Estimated GFR (MDRD) Glucose Lactic Acid 1.8 Calcium Magnesium 2.2 Total Bilirubin AST ALT Alkaline Phosphatase Total Protein Albumin Globulin Albumin/Globulin Ratio Lipase Urine Color YELLOW Urine Clarity CLEAR Urine pH 7.0 Ur Specific [place] <=1.005 Urine Protein NEGATIVE Urine Glucose (UA) NEGATIVE Urine Ketones NEGATIVE Urine Occult Blood NEGATIVE Urine Nitrite NEGATIVE Urine Bilirubin NEGATIVE Urine Urobilinogen 0.2 (NORMAL) Ur Leukocyte Esterase NEGATIVE Ur Microscopic Review NOT INDICATED Urine Culture Comments NOT INDICATED - Rads (name of study) abd CT Radiology: Prelim report reviewed (small bowel obstruction with transition mid lower abd. chronic aortic dissection flap. 4 cm aneurysm. No signs of free fluid. ), See rad report PD MEDICAL DECISION MAKING - ED course Complexity details: reviewed results, re-evaluated patient, considered differential (moderate pain controlled easily with small dose pain med. Lactate normal. WBC normal. CT showing SBO. Does not sound ischemic. ), d/w patient, d/w security system sales consultant (Dr. Peters, surgery, then Hospitalist. ) Departure - Departure Disposition: 66 [facility] DC/Xfer Clinical Impression: Anticoagulant long-term use, Small bowel obstruction Abdominal pain Qualifiers: Abdominal location: periumbilical Qualified Code(s): R10.33 - Periumbilical pain Condition: Stable Discharge Date/Time: 12/22/20 17:17
[2020-12-22 13:31] LABS: ALBUMIN 4.3 g/dL (3.2-5.5); ALBUMIN/GLOBULIN RATIO 1.5 (1.0-2.2); BILIRUBIN,TOTAL 0.7 mg/dL (0.2-1.0); CALCIUM 9.2 mg/dL (8.5-10.3); CREATININE 0.8 mg/dL (0.6-1.2); TOTAL PROTEIN 7.1 g/dL (6.7-8.2)
[2020-12-22] MEDS ORDERED: SODIUM CHLORIDE 0.9% 1,000 ML IV STA (13:42)
[2020-12-22] MEDS ORDERED: IOVERSOL 320 100 ML VIAL IVP ONE ×2 (14:02→14:53)
[2020-12-22 14:11] LABS: INR 1.3 (0.8-1.2); PT - PROTHROMBIN TIME 14.7 secs (9.9-12.6)
[2020-12-22] MEDS ORDERED: ONDANSETRON 4 MG/2 ML VIAL IVP STA (14:16)
[2020-12-22] MEDS ORDERED: HYDROmorphone 1 MG/ML CARPUJECT IVP STA (14:16)
[2020-12-22 14:18] LABS: PARTIAL THROMBOPLASTIN TIME 24.3 secs (24.9-33.3)
--- NOTE | 2020-12-22 14:20 | CT Report ---
PROCEDURE: Abdomen/Pelvis W INDICATIONS: mid abd pain onset this morning CONTRAST: IV CONTRAST: Optiray 320 ml: 100 PO CONTRAST: *NO PO CONTRAST TECHNIQUE: After the administration of IV contrast, 5 mm thick sections acquired from the diaphragms to the symp hysis. 5 mm thick coronal and sagittal reformats were acquired. For radiation dose reduction, the f ollowing was used: automated exposure control, adjustment of mA and/or kV according to patient size. COMPARISON: None. FINDINGS: Image quality: Excellent. ABDOMEN: Lung bases: There is mild bibasilar atelectasis versus pneumonia. There is calcification of the coron jeronimo vasculature. Heart size is enlarged. Solid organs: Liver and spleen are normal in size and enhancement. Gallbladder is within normal lamb its Biliary system is non dilated. Pancreas enhances normally. No adrenal nodules. Kidneys demons trate normal size and enhancement, without hydronephrosis. Peritoneum and bowel: The stomach is mildly distended. There are multiple moderately distended loops of small bowel within the central aspect of the abdomen and pelvis. There is a transition zone betwee n dilated and nondilated small bowel within the left paramedian abdomen (series 6 image 18). Distal s mall bowel loops are nondistended. Appendix is not seen. No evidence of appendicitis. Colon is nondis tended. No pneumoperitoneum. Trace free fluid in the pelvis. Moderate mesenteric edema within the ant erior abdomen and pelvis. Nodes and vessels: No retroperitoneal or mesenteric adenopathy by size criteria. IVC is normal in ca liber. There is a fusiform infrarenal abdominal aortic aneurysm measuring roughly 43 mm short axis. C hronic appearing dissection flaps within the inferior aspect of the abdominal aorta. 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 Miscellaneous: No ventral hernias. PELVIS: Genitourinary: Bladder wall thickness is normal. Miscellaneous: No inguinal hernias or adenopathy. Bones: No suspicious bony lesions. No vertebral body compression fractures. IMPRESSION: 1. Moderate to high-grade small bowel obstruction, with transition point as described above. 2. Mesenteric edema, consistent with infection, inflammation, or ischemia. 3. Aortoiliac aneurysm. 4. 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 5. Mild bibasilar atelectasis versus pneumonia. Reviewed by: Negrita Sarmiento MD on 12/22/2020 2:18 PM PST Approved by: Negrita Sarmiento MD on 12/22/2020 2:18 PM PST Station ID: [id number]
[2020-12-22] MEDS ORDERED: HYDROmorphone 0.5 MG/0.5 ML SYRINGE IVP PRN (16:24)
[2020-12-22] MEDS ORDERED: SODIUM CHLORIDE FLUSH 0.9% 10 ML SYRINGE IVP PRN (16:24)
[2020-12-22] MEDS ORDERED: ONDANSETRON 4 MG/2 ML VIAL IVP PRN (16:24)
[2020-12-22] MEDS ORDERED: ACETAMINOPHEN 325 MG TABLET PO PRN (16:24)
[2020-12-22 16:26] LABS: BILIRUBIN,URINE NEGATIVE (NEGATIVE); CLARITY,URINE CLEAR (CLEAR); GLUCOSE, URINE (UA) NEGATIVE (NEGATIVE); KETONES,URINE (UA) NEGATIVE (NEGATIVE); LEUKOCYTE ESTERASE, URINE NEGATIVE (NEGATIVE); NITRITE,URINE NEGATIVE (NEGATIVE); OCCULT BLOOD,URINE NEGATIVE (NEGATIVE); PROTEIN,URINE NEGATIVE (NEGATIVE); UROBILINOGEN,URINE 0.2 (NORMAL) E.U./dL (NORMAL)
--- NOTE | 2020-12-22 16:37 | HISTORY & PHYSICAL EXAMINATION ---
Chief Complaint - Chief Complaint Chief Complaint: abdominal pain History of Present Illness - Admitted From Admitted From:: ER - History Obtained From Records Reviewed: [facility] History obtained from: Pt Exam Limitations: no - History of Present Illness HPI Comment/Other: This is a 80-years old male with a past medical history significant for hypertension, hyperlipidemia, osteoarthritis, who present ER complain of abdomin al pain. Patient was brought in by EMS. Pt report he suddenly had onset of middle abdominal pain which started at 0800 this morning. pt report his pain is severe, and he can not hold the pain then he call EMS. The pain did not radiate to other location. pt report nausea and small amount of vomiting. His last bowel movement was early today morning with dark stool. pt also report he had good bowel movement on last night. Pt report he has no abdominal pain after ER gave pt one time of pain meds. pt feel very comfortable, he has no distress at all at this point. Patient denies chest pain, fever, chill, shortness of breath, headache, focal neurological deficits. CT of abdomen reveals Moderate to high-grade small bowel obstruction with transition point within the left paramedian abdomen; Mesenteric edema, consistent with infection, inflammation, or ischemia; aortoiliac aneurysm; chronic appearing dissection of abdominal aorta, mild bibasilar atelectasis versus pneumonia. Discussed the CT image study result and care plan with surgeon Dr. Johnson. He agree we accept pt in our hospital, focus on small obstruction, put NG tube for pt, if pt clinically was not improved, then we might operate for pt. Routine laboratory tests show patient had normal range of WBC, hemoglobin 13.1, Lactic acid 1.8. In the ER, Patient is afebrile, patient is hemodynamic stable. Discussed the care goal with patient, patient clearly request DNR, at the time nurse is at the bedside. History - Past Medical History Cardiovascular: reports: Hypertension, High cholesterol Respiratory: reports: None Endocrine/Autoimmune: reports: None GI: reports: None : reports: None Psych: reports: None Musculoskeletal: reports: Osteoarthritis MRSA Hx?: No - Past Surgical History General: reports: Appendectomy Ortho: reports: Rotator cuff repair Cardiovascular: reports: Other - Family & Social History Family History: Mother: , Father: - POLST Patient has POLST: No Meds/Allgy - Home Medications Home Medications: Ambulatory Orders Medication Instructions Recorded Confirmed Atorvastatin Calcium [Lipitor] 20 mg ORAL DAILY 07/10/14 12/22/20 Aspirin 81 mg PO DAILY 11/01/16 12/22/20 Amiodarone [Pacerone] 100 mg PO DAILY 11/14/20 12/22/20 Apixaban [Eliquis] 5 mg PO BID 11/14/20 12/22/20 FLUoxetine [PROzac] 10 mg PO DAILY 11/14/20 12/22/20 Furosemide [Lasix] 20 mg PO DAILY 11/14/20 12/22/20 Potassium Chloride 20 meq PO DAILY 11/14/20 12/22/20 Tamsulosin [Flomax] 0.4 mg PO DAILY 11/14/20 12/22/20 Oxybutynin [Ditropan] 5 mg PO DAILY 12/22/20 12/22/20 - Allergies Allergies/Adverse Reactions: Allergies Allergy/AdvReac Type Severity Reaction Status Date / Time Sulfa (Sulfonamide Allergy Unknown Verified 12/22/20 13:00 Antibiotics) Review of Systems - Constitutional Constitutional: denies: Fatigue, Fever, Chills, Diaphoresis, Night sweats - Eyes Eyes: denies: Pain, Blurred vision, Field loss, Vision loss - Ears, Nose & Throat Ears, Nose & Throat: denies: Ear pain, Vertigo, Nosebleeds, Bleeding gums - Cardiovascular Cariovascular: denies: Irregular heart rate, Palpitations, Chest pain, Lightheadedness, Syncope, Exertional dyspnea, Decr. exercise tolerance - Respiratory Respiratory: denies: Cough, Wheezing, Hemoptysis, Orthopnea, SOB at rest, SOB with exertion - Gastrointestinal Gastrointestinal: reports: Abdominal pain, Black stools, Nausea, Vomiting. denies: Constipation, Diarrhea, Rectal bleeding, Bloody stools, Bile emesis, Tom blood emesis, Coffee grounds emesis - Genitourinary Genitourinary: denies: Dysuria, Urgency, Incontinence - Musculoskeletal Musculoskeletal: denies: Muscle pain, Muscle aches, Limited range of motion - Integumentary Integumentary: denies: Rash, Lesions, Lumps - Neurological Neurological: denies: General weakness, Focal weakness, Headache, Dizziness, Numbness, Pre-existing deficit, Abnormal gait, Seizures, Incoordination, Slurred speech - Psychiatric Psychiatric: denies: Depression, Suicidal - Endocrine Endocrine: denies: Polyuria, Polyphagia - Hematologic/Lymphatic Hematologic/Lymphatic: denies: Anemia, Petechiae, Blood clots Prior Level of Functionality: Patient is Independent in the home Exam - Vital Signs Vital Signs: Vital Signs x48h Temp Pulse Resp BP Pulse Ox 12/22/20 15:02 75 18 142/79 H 97 12/22/20 13:00 36.8 C 53 L 18 164/75 H 99 - Physical Exam General Appearance: positive: No acute distress, Alert. negative: Lethargic Eyes Bilateral: positive: Normal inspection, PERRL, No lid inflammation ENT: positive: ENT inspection nml, No signs of dehydration. negative: Purulent nasal drainage Neck: positive: Nml inspection, Trachea midline. negative: Thyromegaly, Tracheal deviation Respiratory: positive: Chest non-tender, No respiratory distress. negative: Wheezes, Rales Cardiovascular: positive: Regular rate & rhythm, No murmur. negative: Tachycardia, Bradycardia, Systolic murmur, Diastolic murmur Abdomen: positive: Nml bowel sounds, No distention, Tenderness. negative: Guarding, Rebound Back: positive: Nml inspection. negative: CVA tenderness (R), CVA tenderness (L) Skin: positive: Color nml, Warm, Dry. negative: Cyanosis, Diaphoresis, Pallor Extremities: positive: Non-tender, Full ROM, Nml appearance. negative: Calf tenderness Neurologic/Psychiatric: positive: Oriented x3, Motor nml, Sensation nml, Mood/affect nml. negative: Weakness, Sensory loss, Facial droop, Slurred/abnml speech, Depressed mood/affect Conclusion/Plan - Problem List (1) Small bowel obstruction Conclusion/Plan: Patient complain abdominal pain with Sudden onset, Patient reported nausea with small vomiting. CT Scan of abdomen report small bowel obstruction with transition point within the left paramedian abdomen. pt report his abdominal pain only located at middle of abdomen. Pt reported pain location is matching the the obstruction transition point location shown in CT scan. Consult with surgeon and discussed the care plan with surgeon, put NG tube for patient, NPO with intravenous IV fluids, Encourage patient ambulation, and Pain control (2) Abdominal aortic aneurysm Conclusion/Plan: CAT scan show abdominal artery aneurysm size roughly is 43 mm. Patient is hemodynamic stable now. pt has no abdominal pain now after pt was given once pain medication in ER. pt is very comfortable without acute distress now. Also discussed the care plan with surgeon Dr. Johnson as H&P, We will focus the care for patient small bowel obstruction. Discuss the CT scan result of abdomen with pt. Patient may follow-up with vascular surgeon as outpatient. We will closely monitor patient with vital signs and telemetry as well (3) HTN (hypertension) Conclusion/Plan: Patient has a history of hypertension, now patient's blood pressure is stable, w e will resume patient home blood pressure medicine, add PRN Intravenous hydralazine, pt has hx of AAA. (4) Black stool Conclusion/Plan: pt's HGB is stable. pt took Eliquis for his aortic valve repair which was done at last year January. we will hold his blood thinner now. continue H&H, consult with GI surgeon, add IV protonix (5) Hx of aortic valve repair Conclusion/Plan: pt report he had aortic valve repair on last year January, since that, he took Eliquis. we will ask pt's medical record, and order ECHO. hold eliquis now because pt had black stool, and pt had bowel obstruction, and possible pt might need surgery. (6) BPH (benign prostatic hyperplasia) Conclusion/Plan: Patient has history of BPH, will resume patient's home Flomax when pt can take PO meds - Lab Results Fish Bones: 12/22/20 13:13 12/22/20 13:13 Core Measures - Anticipated LOS I expect patient to be DC'd or transferred within 96 hours.: Yes - DVT/VTE - Prophylaxis VTE/DVT Device ordered at admit?: Yes VTE/DVT Prophylaxis med ordered at admit?: Yes
[2020-12-22] MEDS: D5.45NS W/20 MEQ KCL 1,000 ML IV SCH (17:34)
[2020-12-22] MEDS: SODIUM CHLORIDE FLUSH 0.9% 10 ML SYRINGE IVP SCH ×2 (17:35→23:26)
[2020-12-22] MEDS ORDERED: hydrALAZINE INJ 20 MG/ML VIAL IVP PRN (17:42)
--- NOTE | 2020-12-22 18:16 | XRAY Report ---
PROCEDURE: Chest 1 View X-Ray INDICATIONS: SOB TECHNIQUE: One view of the chest was acquired. COMPARISON: CT abdomen and pelvis with contrast, 12/25/2020. Chest x-ray 2 views, 11/02/2017. FINDINGS: Surgical changes and devices: There is a nasogastric tube with the tip projecting to the epigastric a fly, presumably within the proximal stomach. Lungs and pleura: No pleural effusions or pneumothorax. Discoid atelectasis at the left lung base. Lungs are otherwise clear. Mediastinum: Mediastinal contours appear normal. Heart size is normal. There is a aortic valve pro sthesis Bones and chest wall: No suspicious bony lesions. Overlying soft tissues appear unremarkable. IMPRESSION: The tip of the nasogastric tube projects to the epigastric area. Reviewed by: Peter Heart MD on 12/22/2020 6:15 PM PST Approved by: Peter Heart MD on 12/22/2020 6:15 PM PST Station ID: [id number]
[2020-12-22 18:26] LABS: C. PNEUMONIAE- RESP PCR PANEL NOT DETECTED
--- NOTE | 2020-12-22 19:44 | HISTORY & PHYSICAL EXAMINATION ---
Chief Complaint - Chief Complaint Chief Complaint: acute onset abdominal pain after breakfast Abdominal Pain HPI - Admitted From Admitted from: ED - History Obtained From History obtained from: Patient Exam limitations: No limitations - History of Present Illness Severity at the worst: Moderate Pain Quality: Sharp Timing: Abrupt onset Duration: Hours: Improved with: Other (bowel rest and ngt) HPI Comment/Other: 80 year old with mechanical heart valve on anticoagulation with acute onset abdominal pain this am. He currently feels much improved and denies pain. He has history of appendectomy 60 years ago. He has not had similar abdominal discomfort. He had a salad for dinner and raisin bran cereal this am. PMH/PSH - Past Medical History Cardiovascular: positive: Hypertension, High cholesterol Respiratory: positive: None Endocrine/Autoimmune: positive: None GI: positive: None : positive: None Psych: positive: None Musculoskeletal: positive: Osteoarthritis MRSA Hx?: No - Past Surgical History General: positive: Appendectomy Ortho: positive: Rotator cuff repair Cardiovascular: positive: Other Social & Family Hx - Social History Does the pt smoke?: No Smoking Status: Never smoker Does the pt drink ETOH?: Yes Does the pt have substance abuse?: No - POLST Patient has POLST: No Meds/Allgy - Home Medications Home Medications: Ambulatory Orders Medication Instructions Recorded Confirmed Atorvastatin Calcium [Lipitor] 20 mg ORAL DAILY 07/10/14 12/22/20 Aspirin 81 mg PO DAILY 11/01/16 12/22/20 Amiodarone [Pacerone] 100 mg PO DAILY 11/14/20 12/22/20 Apixaban [Eliquis] 5 mg PO BID 11/14/20 12/22/20 FLUoxetine [PROzac] 10 mg PO DAILY 11/14/20 12/22/20 Furosemide [Lasix] 20 mg PO DAILY 11/14/20 12/22/20 Potassium Chloride 20 meq PO DAILY 11/14/20 12/22/20 Tamsulosin [Flomax] 0.4 mg PO DAILY 11/14/20 12/22/20 Oxybutynin [Ditropan] 5 mg PO DAILY 12/22/20 12/22/20 - Allergies Allergies/Adverse Reactions: Allergies Allergy/AdvReac Type Severity Reaction Status Date / Time Sulfa (Sulfonamide Allergy Unknown Verified 12/22/20 13:00 Antibiotics) Exam - Vital Signs Reviewed Vital Signs: Yes Vital Signs: Vital Signs x48h Temp Pulse Pulse Resp BP BP Pulse Ox 12/22/20 17:33 36.3 C L 56 L 18 153/63 H 96 12/22/20 17:00 64 19 119/65 95 12/22/20 15:02 75 18 142/79 H 97 12/22/20 13:00 36.8 C 53 L 18 164/75 H 99 - Physical Exam General Appearance: positive: No acute distress, Alert Eyes Bilateral: positive: Normal inspection, PERRL, EOMI ENT: positive: No signs of dehydration Neck: positive: No JVD, Trachea midline Respiratory: positive: No respiratory distress Abdomen: positive: Non-tender, No distention Neurologic/Psychiatric: positive: Oriented x3 Results - Lab Results Fish Bones: 12/22/20 13:13 12/22/20 13:13 Other Lab Results: Lab Results x24hrs 12/22/20 12/22/20 12/22/20 Range/Units 17:05 16:06 14:38 WBC (4.8-10.8) x10^3/uL RBC (4.70-6.10) 10^6/uL Hgb (14.0-18.0) g/dL Hct (42.0-52.0) % MCV (80.0-94.0) fL MCH (27.0-31.0) pg MCHC (32.0-36.0) g/dL RDW (12.0-15.0) % Plt Count (130-450) 10^3/uL MPV (7.4-11.4) fL Neut # (Auto) (1.5-6.6) 10^3/uL Lymph # (Auto) (1.5-3.5) 10^3/uL [place] # (Auto) (0.0-1.0) 10^3/uL Eos # (Auto) (0.0-0.7) 10^3/uL Baso # (Auto) (0.0-0.1) 10^3/uL Absolute Nucleated RBC x10^3/uL Nucleated RBC % /100WBC PT (9.9-12.6) secs INR (0.8-1.2) APTT (24.9-33.3) secs Sodium (135-145) mmol/L Potassium (3.5-5.0) mmol/L Chloride (101-111) mmol/L Carbon Dioxide (21-32) mmol/L Anion Gap (6-13) BUN (6-20) mg/dL Creatinine (0.6-1.2) mg/dL Estimated GFR (MDRD) (>89) Glucose (70-100) mg/dL Lactic Acid 1.8 (0.5-2.2) mmol/L Calcium (8.5-10.3) mg/dL Magnesium (1.7-2.8) mg/dL Total Bilirubin (0.2-1.0) mg/dL AST (10-42) IU/L ALT (10-60) IU/L Alkaline Phosphatase (42-121) IU/L Total Protein (6.7-8.2) g/dL Albumin (3.2-5.5) g/dL Globulin (2.1-4.2) g/dL Albumin/Globulin Ratio (1.0-2.2) Lipase (22-51) U/L Urine Color YELLOW Urine Clarity CLEAR (CLEAR) Urine pH 7.0 (5.0-7.5) PH Ur Specific [place] <=1.005 (1.002-1.030) Urine Protein NEGATIVE (NEGATIVE) mg/dL Urine Glucose (UA) NEGATIVE (NEGATIVE) mg/dL Urine Ketones NEGATIVE (NEGATIVE) mg/dL Urine Occult Blood NEGATIVE (NEGATIVE) Urine Nitrite NEGATIVE (NEGATIVE) Urine Bilirubin NEGATIVE (NEGATIVE) Urine Urobilinogen 0.2 (NORMAL) (NORMAL) E.U./dL Ur Leukocyte Esterase NEGATIVE (NEGATIVE) Ur Microscopic Review NOT INDICATED Urine Culture Comments NOT INDICATED Nasal Adenovirus (PCR) NOT DETECTED Nasal B. parapertussis DNA (PCR) NOT DETECTED Nasal Coronavir 229E PCR NOT DETECTED Nasal Coronavir HKU1 PCR NOT DETECTED Nasal Coronavir NL63 PCR NOT DETECTED Nasal Coronavir OC43 PCR NOT DETECTED Nasal Enterovir/Rhinovir PCR NOT DETECTED Nasal Influenza B PCR NOT DETECTED Nasal Influenza A PCR NOT DETECTED Nasal Parainfluen 1 PCR NOT DETECTED Nasal Parainfluen 2 PCR NOT DETECTED Nasal Parainfluen 3 PCR NOT DETECTED Nasal Parainfluen 4 PCR NOT DETECTED Nasal RSV (PCR) NOT DETECTED Nasal B.pertussis DNA PCR NOT DETECTED Nasal C.pneumoniae (PCR) NOT DETECTED Julito Human Metapneumo PCR NOT DETECTED Nasal M.pneumoniae (PCR) NOT DETECTED Nasal SARS-CoV-2 (PCR) NOT DETECTED 12/22/20 12/22/20 12/22/20 Range/Units 13:56 13:56 13:13 WBC (4.8-10.8) x10^3/uL RBC (4.70-6.10) 10^6/uL Hgb (14.0-18.0) g/dL Hct (42.0-52.0) % MCV (80.0-94.0) fL MCH (27.0-31.0) pg MCHC (32.0-36.0) g/dL RDW (12.0-15.0) % Plt Count (130-450) 10^3/uL MPV (7.4-11.4) fL Neut # (Auto) (1.5-6.6) 10^3/uL Lymph # (Auto) (1.5-3.5) 10^3/uL [place] # (Auto) (0.0-1.0) 10^3/uL Eos # (Auto) (0.0-0.7) 10^3/uL Baso # (Auto) (0.0-0.1) 10^3/uL Absolute Nucleated RBC x10^3/uL Nucleated RBC % /100WBC PT 14.7 H (9.9-12.6) secs INR 1.3 H (0.8-1.2) APTT 24.3 L (24.9-33.3) secs Sodium 135 (135-145) mmol/L Potassium 3.5 (3.5-5.0) mmol/L Chloride 98 L (101-111) mmol/L Carbon Dioxide 22 (21-32) mmol/L Anion Gap 15.0 H (6-13) BUN 21 H (6-20) mg/dL Creatinine 0.8 (0.6-1.2) mg/dL Estimated GFR (MDRD) 93 (>89) Glucose 145 H (70-100) mg/dL Lactic Acid (0.5-2.2) mmol/L Calcium 9.2 (8.5-10.3) mg/dL Magnesium 2.2 (1.7-2.8) mg/dL Total Bilirubin 0.7 (0.2-1.0) mg/dL AST 34 (10-42) IU/L ALT 22 (10-60) IU/L Alkaline Phosphatase 129 H (42-121) IU/L Total Protein 7.1 (6.7-8.2) g/dL Albumin 4.3 (3.2-5.5) g/dL Globulin 2.8 (2.1-4.2) g/dL Albumin/Globulin Ratio 1.5 (1.0-2.2) Lipase 23 (22-51) U/L Urine Color Urine Clarity (CLEAR) Urine pH (5.0-7.5) PH Ur Specific [place] (1.002-1.030) Urine Protein (NEGATIVE) mg/dL Urine Glucose (UA) (NEGATIVE) mg/dL Urine Ketones (NEGATIVE) mg/dL Urine Occult Blood (NEGATIVE) Urine Nitrite (NEGATIVE) Urine Bilirubin (NEGATIVE) Urine Urobilinogen (NORMAL) E.U./dL Ur Leukocyte Esterase (NEGATIVE) Ur Microscopic Review Urine Culture Comments Nasal Adenovirus (PCR) Nasal B. parapertussis DNA (PCR) Nasal Coronavir 229E PCR Nasal Coronavir HKU1 PCR Nasal Coronavir NL63 PCR Nasal Coronavir OC43 PCR Nasal Enterovir/Rhinovir PCR Nasal Influenza B PCR Nasal Influenza A PCR Nasal Parainfluen 1 PCR Nasal Parainfluen 2 PCR Nasal Parainfluen 3 PCR Nasal Parainfluen 4 PCR Nasal RSV (PCR) Nasal B.pertussis DNA PCR Nasal C.pneumoniae (PCR) Julito Human Metapneumo PCR Nasal M.pneumoniae (PCR) Nasal SARS-CoV-2 (PCR) 12/22/20 Range/Units 13:13 WBC 9.2 (4.8-10.8) x10^3/uL RBC 4.33 L (4.70-6.10) 10^6/uL Hgb 13.1 L (14.0-18.0) g/dL Hct 39.6 L (42.0-52.0) % MCV 91.5 (80.0-94.0) fL MCH 30.3 (27.0-31.0) pg MCHC 33.1 (32.0-36.0) g/dL RDW 13.8 (12.0-15.0) % Plt Count 155 (130-450) 10^3/uL MPV 10.1 (7.4-11.4) fL Neut # (Auto) 8.0 H (1.5-6.6) 10^3/uL Lymph # (Auto) 0.5 L (1.5-3.5) 10^3/uL [place] # (Auto) 0.6 (0.0-1.0) 10^3/uL Eos # (Auto) 0.0 (0.0-0.7) 10^3/uL Baso # (Auto) 0.0 (0.0-0.1) 10^3/uL Absolute Nucleated RBC 0.00 x10^3/uL Nucleated RBC % 0.0 /100WBC PT (9.9-12.6) secs INR (0.8-1.2) APTT (24.9-33.3) secs Sodium (135-145) mmol/L Potassium (3.5-5.0) mmol/L Chloride (101-111) mmol/L Carbon Dioxide (21-32) mmol/L Anion Gap (6-13) BUN (6-20) mg/dL Creatinine (0.6-1.2) mg/dL Estimated GFR (MDRD) (>89) Glucose (70-100) mg/dL Lactic Acid (0.5-2.2) mmol/L Calcium (8.5-10.3) mg/dL Magnesium (1.7-2.8) mg/dL Total Bilirubin (0.2-1.0) mg/dL AST (10-42) IU/L ALT (10-60) IU/L Alkaline Phosphatase (42-121) IU/L Total Protein (6.7-8.2) g/dL Albumin (3.2-5.5) g/dL Globulin (2.1-4.2) g/dL Albumin/Globulin Ratio (1.0-2.2) Lipase (22-51) U/L Urine Color Urine Clarity (CLEAR) Urine pH (5.0-7.5) PH Ur Specific [place] (1.002-1.030) Urine Protein (NEGATIVE) mg/dL Urine Glucose (UA) (NEGATIVE) mg/dL Urine Ketones (NEGATIVE) mg/dL Urine Occult Blood (NEGATIVE) Urine Nitrite (NEGATIVE) Urine Bilirubin (NEGATIVE) Urine Urobilinogen (NORMAL) E.U./dL Ur Leukocyte Esterase (NEGATIVE) Ur Microscopic Review Urine Culture Comments Nasal Adenovirus (PCR) Nasal B. parapertussis DNA (PCR) Nasal Coronavir 229E PCR Nasal Coronavir HKU1 PCR Nasal Coronavir NL63 PCR Nasal Coronavir OC43 PCR Nasal Enterovir/Rhinovir PCR Nasal Influenza B PCR Nasal Influenza A PCR Nasal Parainfluen 1 PCR Nasal Parainfluen 2 PCR Nasal Parainfluen 3 PCR Nasal Parainfluen 4 PCR Nasal RSV (PCR) Nasal B.pertussis DNA PCR Nasal C.pneumoniae (PCR) Julito Human Metapneumo PCR Nasal M.pneumoniae (PCR) Nasal SARS-CoV-2 (PCR) - Diagnostic Imaging Results Diagnostic Imaging Results: positive: Final report reviewed, Read independently (partial small bowel obstruction) Impression/Plan - Problem List Problem List: small bowel obstruction after salad and raisin bran. He currently feels much improved and denies abdominal pain. agree with present care with ngt, lovenox, holding eliquis
[2020-12-22] MEDS: PANTOPRAZOLE 40 MG VIAL IVP SCH (20:19)
[2020-12-22] MEDS ORDERED: FAMOTIDINE 20 MG/2 ML VIAL IVP SCH (21:00)
[2020-12-22 21:34] LABS: HGB - HEMOGLOBIN 11.2 g/dL (14.0-18.0)
[2020-12-22] MEDS ORDERED: PHENOL THROAT SPRAY 177 ML MM PRN (23:27)
[2020-12-23] MEDS: D5.45NS W/20 MEQ KCL 1,000 ML IV SCH ×2 (03:24→13:05)
[2020-12-23 04:55] LABS: BASOPHILS % (AUTO) 0.2 %; EOSINOPHILS # (AUTO) 0.1 10^3/uL (0.0-0.7); EOSINOPHILS % (AUTO) 1.8 %; HGB - HEMOGLOBIN 11.3 g/dL (14.0-18.0); LYMPHOCYTES # (AUTO) 0.7 10^3/uL (1.5-3.5); LYMPHOCYTES % (AUTO) 11.1 %; MEAN CORPUSCULAR HEMOGLOBIN 29.8 pg (27.0-31.0); MEAN CORPUSCULAR HGB CONC 32.2 g/dL (32.0-36.0); MEAN CORPUSCULAR VOLUME 92.6 fL (80.0-94.0); MEAN PLATELET VOLUME 10.2 fL (7.4-11.4); MONOCYTES # (AUTO) 0.8 10^3/uL (0.0-1.0); MONOCYTES % (AUTO) 12.8 %; NEUTROPHILS # (AUTO) 4.5 10^3/uL (1.5-6.6); NEUTROPHILS % (AUTO) 73.8 %; PLT - PLATELET COUNT 141 10^3/uL (130-450); RED BLOOD COUNT 3.79 10^6/uL (4.70-6.10)
[2020-12-23 05:05] LABS: CALCIUM 8.6 mg/dL (8.5-10.3); CREATININE 0.7 mg/dL (0.6-1.2)
[2020-12-23] MEDS: PANTOPRAZOLE 40 MG VIAL IVP SCH (06:01)
[2020-12-23] MEDS: SODIUM CHLORIDE FLUSH 0.9% 10 ML SYRINGE IVP SCH (08:29)
[2020-12-23] MEDS ORDERED: ENOXAPARIN 40 MG/0.4 ML SYRINGE SUBQ SCH ×2 (09:00)
--- NOTE | 2020-12-23 09:35 | PROVIDER PROGRESS NOTE ---
Subjective - Prog Note Date Prog Note Date: 12/23/20 - Subjective Pt reports feeling: Improved (denies abdominal pain or nausea.) Objective - Vital Signs/Intake & Output Reviewed Vital Signs: Yes Vital Signs: Vital Signs x48h Temp Pulse Resp BP Pulse Ox 12/23/20 07:54 36.4 C L 54 L 17 148/78 H 97 12/23/20 05:00 36.4 C L 53 L 18 156/76 H 97 Intake & Output: Intake & Output 12/20/20 12/21/20 12/22/20 12/23/20 23:59 23:59 23:59 23:59 Intake Total 1020.000 983.333 Output Total 300 1100 Balance 720.000 -116.667 - Objective General Appearance: positive: No acute distress, Alert Eyes Bilateral: positive: Normal inspection, PERRL Respiratory: positive: No respiratory distress Abdomen: positive: Non-tender, No distention Neurologic/Psychiatric: positive: Oriented x3 - Lab Results Fish Bones: 12/23/20 04:18 12/23/20 04:18 Other Labs: Lab Results x24hrs 12/23/20 12/23/20 12/22/20 Range/Units 04:18 04:18 21:28 WBC 6.0 (4.8-10.8) x10^3/uL RBC 3.79 L (4.70-6.10) 10^6/uL Hgb 11.3 L 11.2 L (14.0-18.0) g/dL Hct 35.1 L 34.2 L (42.0-52.0) % MCV 92.6 (80.0-94.0) fL MCH 29.8 (27.0-31.0) pg MCHC 32.2 (32.0-36.0) g/dL RDW 14.0 (12.0-15.0) % Plt Count 141 (130-450) 10^3/uL MPV 10.2 (7.4-11.4) fL Neut # (Auto) 4.5 (1.5-6.6) 10^3/uL Lymph # (Auto) 0.7 L (1.5-3.5) 10^3/uL [place] # (Auto) 0.8 (0.0-1.0) 10^3/uL Eos # (Auto) 0.1 (0.0-0.7) 10^3/uL Baso # (Auto) 0.0 (0.0-0.1) 10^3/uL Absolute Nucleated RBC 0.00 x10^3/uL Nucleated RBC % 0.0 /100WBC PT (9.9-12.6) secs INR (0.8-1.2) APTT (24.9-33.3) secs Sodium 135 (135-145) mmol/L Potassium 4.1 (3.5-5.0) mmol/L Chloride 101 (101-111) mmol/L Carbon Dioxide 25 (21-32) mmol/L Anion Gap 9.0 (6-13) BUN 14 (6-20) mg/dL Creatinine 0.7 (0.6-1.2) mg/dL Estimated GFR (MDRD) 108 (>89) Glucose 116 H (70-100) mg/dL Lactic Acid (0.5-2.2) mmol/L Calcium 8.6 (8.5-10.3) mg/dL Magnesium (1.7-2.8) mg/dL Total Bilirubin (0.2-1.0) mg/dL AST (10-42) IU/L ALT (10-60) IU/L Alkaline Phosphatase (42-121) IU/L Total Protein (6.7-8.2) g/dL Albumin (3.2-5.5) g/dL Globulin (2.1-4.2) g/dL Albumin/Globulin Ratio (1.0-2.2) Lipase (22-51) U/L Urine Color Urine Clarity (CLEAR) Urine pH (5.0-7.5) PH Ur Specific [place] (1.002-1.030) Urine Protein (NEGATIVE) mg/dL Urine Glucose (UA) (NEGATIVE) mg/dL Urine Ketones (NEGATIVE) mg/dL Urine Occult Blood (NEGATIVE) Urine Nitrite (NEGATIVE) Urine Bilirubin (NEGATIVE) Urine Urobilinogen (NORMAL) E.U./dL Ur Leukocyte Esterase (NEGATIVE) Ur Microscopic Review Urine Culture Comments Nasal Adenovirus (PCR) Nasal B. parapertussis DNA (PCR) Nasal Coronavir 229E PCR Nasal Coronavir HKU1 PCR Nasal Coronavir NL63 PCR Nasal Coronavir OC43 PCR Nasal Enterovir/Rhinovir PCR Nasal Influenza B PCR Nasal Influenza A PCR Nasal Parainfluen 1 PCR Nasal Parainfluen 2 PCR Nasal Parainfluen 3 PCR Nasal Parainfluen 4 PCR Nasal RSV (PCR) Nasal B.pertussis DNA PCR Nasal C.pneumoniae (PCR) Julito Human Metapneumo PCR Nasal M.pneumoniae (PCR) Nasal SARS-CoV-2 (PCR) 12/22/20 12/22/20 12/22/20 Range/Units 17:05 16:06 14:38 WBC (4.8-10.8) x10^3/uL RBC (4.70-6.10) 10^6/uL Hgb (14.0-18.0) g/dL Hct (42.0-52.0) % MCV (80.0-94.0) fL MCH (27.0-31.0) pg MCHC (32.0-36.0) g/dL RDW (12.0-15.0) % Plt Count (130-450) 10^3/uL MPV (7.4-11.4) fL Neut # (Auto) (1.5-6.6) 10^3/uL Lymph # (Auto) (1.5-3.5) 10^3/uL [place] # (Auto) (0.0-1.0) 10^3/uL Eos # (Auto) (0.0-0.7) 10^3/uL Baso # (Auto) (0.0-0.1) 10^3/uL Absolute Nucleated RBC x10^3/uL Nucleated RBC % /100WBC PT (9.9-12.6) secs INR (0.8-1.2) APTT (24.9-33.3) secs Sodium (135-145) mmol/L Potassium (3.5-5.0) mmol/L Chloride (101-111) mmol/L Carbon Dioxide (21-32) mmol/L Anion Gap (6-13) BUN (6-20) mg/dL Creatinine (0.6-1.2) mg/dL Estimated GFR (MDRD) (>89) Glucose (70-100) mg/dL Lactic Acid 1.8 (0.5-2.2) mmol/L Calcium (8.5-10.3) mg/dL Magnesium (1.7-2.8) mg/dL Total Bilirubin (0.2-1.0) mg/dL AST (10-42) IU/L ALT (10-60) IU/L Alkaline Phosphatase (42-121) IU/L Total Protein (6.7-8.2) g/dL Albumin (3.2-5.5) g/dL Globulin (2.1-4.2) g/dL Albumin/Globulin Ratio (1.0-2.2) Lipase (22-51) U/L Urine Color YELLOW Urine Clarity CLEAR (CLEAR) Urine pH 7.0 (5.0-7.5) PH Ur Specific [place] <=1.005 (1.002-1.030) Urine Protein NEGATIVE (NEGATIVE) mg/dL Urine Glucose (UA) NEGATIVE (NEGATIVE) mg/dL Urine Ketones NEGATIVE (NEGATIVE) mg/dL Urine Occult Blood NEGATIVE (NEGATIVE) Urine Nitrite NEGATIVE (NEGATIVE) Urine Bilirubin NEGATIVE (NEGATIVE) Urine Urobilinogen 0.2 (NORMAL) (NORMAL) E.U./dL Ur Leukocyte Esterase NEGATIVE (NEGATIVE) Ur Microscopic Review NOT INDICATED Urine Culture Comments NOT INDICATED Nasal Adenovirus (PCR) NOT DETECTED Nasal B. parapertussis DNA (PCR) NOT DETECTED Nasal Coronavir 229E PCR NOT DETECTED Nasal Coronavir HKU1 PCR NOT DETECTED Nasal Coronavir NL63 PCR NOT DETECTED Nasal Coronavir OC43 PCR NOT DETECTED Nasal Enterovir/Rhinovir PCR NOT DETECTED Nasal Influenza B PCR NOT DETECTED Nasal Influenza A PCR NOT DETECTED Nasal Parainfluen 1 PCR NOT DETECTED Nasal Parainfluen 2 PCR NOT DETECTED Nasal Parainfluen 3 PCR NOT DETECTED Nasal Parainfluen 4 PCR NOT DETECTED Nasal RSV (PCR) NOT DETECTED Nasal B.pertussis DNA PCR NOT DETECTED Nasal C.pneumoniae (PCR) NOT DETECTED Julito Human Metapneumo PCR NOT DETECTED Nasal M.pneumoniae (PCR) NOT DETECTED Nasal SARS-CoV-2 (PCR) NOT DETECTED 12/22/20 12/22/20 12/22/20 Range/Units 13:56 13:56 13:13 WBC (4.8-10.8) x10^3/uL RBC (4.70-6.10) 10^6/uL Hgb (14.0-18.0) g/dL Hct (42.0-52.0) % MCV (80.0-94.0) fL MCH (27.0-31.0) pg MCHC (32.0-36.0) g/dL RDW (12.0-15.0) % Plt Count (130-450) 10^3/uL MPV (7.4-11.4) fL Neut # (Auto) (1.5-6.6) 10^3/uL Lymph # (Auto) (1.5-3.5) 10^3/uL [place] # (Auto) (0.0-1.0) 10^3/uL Eos # (Auto) (0.0-0.7) 10^3/uL Baso # (Auto) (0.0-0.1) 10^3/uL Absolute Nucleated RBC x10^3/uL Nucleated RBC % /100WBC PT 14.7 H (9.9-12.6) secs INR 1.3 H (0.8-1.2) APTT 24.3 L (24.9-33.3) secs Sodium 135 (135-145) mmol/L Potassium 3.5 (3.5-5.0) mmol/L Chloride 98 L (101-111) mmol/L Carbon Dioxide 22 (21-32) mmol/L Anion Gap 15.0 H (6-13) BUN 21 H (6-20) mg/dL Creatinine 0.8 (0.6-1.2) mg/dL Estimated GFR (MDRD) 93 (>89) Glucose 145 H (70-100) mg/dL Lactic Acid (0.5-2.2) mmol/L Calcium 9.2 (8.5-10.3) mg/dL Magnesium 2.2 (1.7-2.8) mg/dL Total Bilirubin 0.7 (0.2-1.0) mg/dL AST 34 (10-42) IU/L ALT 22 (10-60) IU/L Alkaline Phosphatase 129 H (42-121) IU/L Total Protein 7.1 (6.7-8.2) g/dL Albumin 4.3 (3.2-5.5) g/dL Globulin 2.8 (2.1-4.2) g/dL Albumin/Globulin Ratio 1.5 (1.0-2.2) Lipase 23 (22-51) U/L Urine Color Urine Clarity (CLEAR) Urine pH (5.0-7.5) PH Ur Specific [place] (1.002-1.030) Urine Protein (NEGATIVE) mg/dL Urine Glucose (UA) (NEGATIVE) mg/dL Urine Ketones (NEGATIVE) mg/dL Urine Occult Blood (NEGATIVE) Urine Nitrite (NEGATIVE) Urine Bilirubin (NEGATIVE) Urine Urobilinogen (NORMAL) E.U./dL Ur Leukocyte Esterase (NEGATIVE) Ur Microscopic Review Urine Culture Comments Nasal Adenovirus (PCR) Nasal B. parapertussis DNA (PCR) Nasal Coronavir 229E PCR Nasal Coronavir HKU1 PCR Nasal Coronavir NL63 PCR Nasal Coronavir OC43 PCR Nasal Enterovir/Rhinovir PCR Nasal Influenza B PCR Nasal Influenza A PCR Nasal Parainfluen 1 PCR Nasal Parainfluen 2 PCR Nasal Parainfluen 3 PCR Nasal Parainfluen 4 PCR Nasal RSV (PCR) Nasal B.pertussis DNA PCR Nasal C.pneumoniae (PCR) Julito Human Metapneumo PCR Nasal M.pneumoniae (PCR) Nasal SARS-CoV-2 (PCR) 12/22/20 Range/Units 13:13 WBC 9.2 (4.8-10.8) x10^3/uL RBC 4.33 L (4.70-6.10) 10^6/uL Hgb 13.1 L (14.0-18.0) g/dL Hct 39.6 L (42.0-52.0) % MCV 91.5 (80.0-94.0) fL MCH 30.3 (27.0-31.0) pg MCHC 33.1 (32.0-36.0) g/dL RDW 13.8 (12.0-15.0) % Plt Count 155 (130-450) 10^3/uL MPV 10.1 (7.4-11.4) fL Neut # (Auto) 8.0 H (1.5-6.6) 10^3/uL Lymph # (Auto) 0.5 L (1.5-3.5) 10^3/uL [place] # (Auto) 0.6 (0.0-1.0) 10^3/uL Eos # (Auto) 0.0 (0.0-0.7) 10^3/uL Baso # (Auto) 0.0 (0.0-0.1) 10^3/uL Absolute Nucleated RBC 0.00 x10^3/uL Nucleated RBC % 0.0 /100WBC PT (9.9-12.6) secs INR (0.8-1.2) APTT (24.9-33.3) secs Sodium (135-145) mmol/L Potassium (3.5-5.0) mmol/L Chloride (101-111) mmol/L Carbon Dioxide (21-32) mmol/L Anion Gap (6-13) BUN (6-20) mg/dL Creatinine (0.6-1.2) mg/dL Estimated GFR (MDRD) (>89) Glucose (70-100) mg/dL Lactic Acid (0.5-2.2) mmol/L Calcium (8.5-10.3) mg/dL Magnesium (1.7-2.8) mg/dL Total Bilirubin (0.2-1.0) mg/dL AST (10-42) IU/L ALT (10-60) IU/L Alkaline Phosphatase (42-121) IU/L Total Protein (6.7-8.2) g/dL Albumin (3.2-5.5) g/dL Globulin (2.1-4.2) g/dL Albumin/Globulin Ratio (1.0-2.2) Lipase (22-51) U/L Urine Color Urine Clarity (CLEAR) Urine pH (5.0-7.5) PH Ur Specific [place] (1.002-1.030) Urine Protein (NEGATIVE) mg/dL Urine Glucose (UA) (NEGATIVE) mg/dL Urine Ketones (NEGATIVE) mg/dL Urine Occult Blood (NEGATIVE) Urine Nitrite (NEGATIVE) Urine Bilirubin (NEGATIVE) Urine Urobilinogen (NORMAL) E.U./dL Ur Leukocyte Esterase (NEGATIVE) Ur Microscopic Review Urine Culture Comments Nasal Adenovirus (PCR) Nasal B. parapertussis DNA (PCR) Nasal Coronavir 229E PCR Nasal Coronavir HKU1 PCR Nasal Coronavir NL63 PCR Nasal Coronavir OC43 PCR Nasal Enterovir/Rhinovir PCR Nasal Influenza B PCR Nasal Influenza A PCR Nasal Parainfluen 1 PCR Nasal Parainfluen 2 PCR Nasal Parainfluen 3 PCR Nasal Parainfluen 4 PCR Nasal RSV (PCR) Nasal B.pertussis DNA PCR Nasal C.pneumoniae (PCR) [place] Human Metapneumo PCR Nasal M.pneumoniae (PCR) Nasal SARS-CoV-2 (PCR) Assessment/Plan - Problem List (1) Small bowel obstruction Impression: He denies abdominal pain or nausea. NGT output has been minimal. Likely he will do ok without the ngt. I would recommend no more that sips today. If he has no pain, nausea without the ngt may advance to clears tomorrow. He is eager to go home. We discussed his ct scan findings were significant and if he were to advance his diet too quickly he may have recurrent abdominal discomfort. I have recommended he avoid raw fruits and vegetables and high fiber foods for a couple weeks
--- NOTE | 2020-12-23 10:17 | XRAY Report ---
PROCEDURE: Abdomen 1 View X-Ray INDICATIONS: IF SBO RESOLVED TECHNIQUE: 1 view of the abdomen were acquired. COMPARISON: FINDINGS: Surgical changes and devices: None. Bowel: No pneumoperitoneum. The bowel gas pattern is free of visualized distended large or small madi wel. Mild prominence of bowel gas remains, but no free air is seen.. Soft tissues: No masses; visualized solid organ contours appear normal in size. No suspicious abdom inal calcifications. Bones: No suspicious bony abnormalities. Convex rightward scoliosis at the thoracolumbar junction is again noted. IMPRESSION: No free air seen. No sign of large and small bowel gas distention at this time. Mild rem aining large and small bowel gas prominence. Appreciable improvement from CT scanning 12/22/2020. Reviewed by: Ramírez Mccoy MD on 12/23/2020 10:15 AM PST Approved by: Ramírez Mccoy MD on 12/23/2020 10:15 AM PST Station ID: [id number]
--- NOTE | 2020-12-23 11:40 | PHARMACY PROGRESS NOTE ---
- Best Possible Medication History Admit Date and Time: 12/22/20 1624 Processed by: Pharmacy Medication History completed: Yes Patient Interview: Completed (Pt interviewed by Sweta 12/23) Secondary Source(s): Pharmacy records, Insurance records As the person ultimately responsible for medication therapy, providers are able to order a medication from an existing home medication list in [facility] via the "Reconcile Routine" prior to Confirmation of that medication by client application support engineer. Such practice is discouraged except when the physician, in their clinical judgment, deems that a medical need exists for a medication without regard to previous use.
--- NOTE | 2020-12-23 15:59 | Discharge Plan ---
Discharge Plan Problem Reviewed?: Yes Disposition: Home, Self Care Condition: Stable Diet: Soft Activity Restrictions: Activity as Tolerated Shower Restrictions: No (fall precaution) Instruction Topics: Obstruction Sm Bowel, Aneurysm Abdominal Aortic, Coarctation Aorta Transcath Repair About Health Concerns: you tolerate diet without abdominal pain, nausea or vomiting at all. You feel comfortable. you passed gas. Your abdominal Xray reveals significantly improved and you want to go home. surgeon recommended you avoid raw fruits and vegetables and high fiber foods for a couple weeks. 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 You may have CTA of abdomen/pelvis in one month to monitor your abdominal artery status, followup with vascular surgeon as out-pt. Should you have severe abdominal pain, you may immediately call 911 or present ER for help. Plan of Treatment: as above Care Goals: stabilization and improvement of your medical conditions Assessment: discussed the image study result and care plan with you, you understood. Additional Instructions or Follow Up instructions: You may followup with your PCP in one week, followup with vascular surgeon as out-pt. should your symptoms return or worsen, you may present ER or call 911 for help. No Smoking: If you smoke, Please STOP! Call for help. Follow-up with: Rachid Mcneill MD [Primary Care Provider] -
[2020-12-23 16:02] VITALS: BP 130/76
--- NOTE | 2020-12-23 16:20 | DISCHARGE SUMMARY ---
"Discharge Summary Admit Date: 12/22/20 Discharge Date: 12/23/20 Discharging Provider: Sesar Quispe Primary Care Provider: Rachid Gibbs Condition at Discharge: Stable Discharge Disposition: 01 Home, Self Care Discharge Facility Name: home - DIAGNOSES Discharge Diagnoses with Status of Each Condition: (1) Small bowel obstruction resolved. Patient tolerated regular diet, Patient has no abdominal pain at all, Patient has no nausea or vomiting, Xray of abdomen reveals significant improved, Patient passed a lot of gas. Discussed the case by the phone with Dr. Pugh, GI surgeon, he agree pt can be d/c. unexpected great improvement and recovery on one day and ready to be d/c (2) Abdominal aortic aneurysm Discussed the image study result including Mesenteric edema, consistent with infection, inflammation, or ischemia; aortoiliac aneurysm; chronic appearing dissection of abdominal aorta with pt. pt has no pain at all, pt is Hemodynamically stable, He tolerated regular diet. I also discussed the case with our surgeon. pt may followup with his PCP and vascular surgeon as out-pt, and has CTA image study in one month. Pt verbally state he understood and will followup. (3) HTN (hypertension) stable, resume home meds (4) Black stool pt's HGB is stable, 11.3, pt state he just had once black stool but not very sure. pt may followup with his PCP in one week, and continue monitor. consulted with our GI surgeon, pt may have endoscopy as out-pt. (5) Hx of aortic valve repair pt has hx of valve repair, continue home Eliquis and Aspirin (6) BPH (benign prostatic hyperplasia) stable, resume home meds - HPI History of Present Illness: This is a 80-years old male with a past medical history significant for hypertension, hyperlipidemia, osteoarthritis, who present ER complain of abdominal pain. Patient was brought in by EMS. Pt report he suddenly had onset of middle abdominal pain which started at 0800 this morning. pt report his pain is severe, and he can not hold the pain then he call EMS. The pain did not radiate to other location. pt report nausea and small amount of vomiting. His last bowel movement was early today morning with dark stool. pt also report he had good bowel movement on last night. Pt report he has no abdominal pain after ER gave pt one time of pain meds. pt feel very comfortable, he has no distress at all at this point. Patient denies chest pain, fever, chill, shortness of breath, headache, f ocal neurological deficits. CT of abdomen reveals Moderate to high-grade small bowel obstruction with transition point within the left paramedian abdomen; Mesenteric edema, consistent with infection, inflammation, or ischemia; aortoiliac aneurysm; chronic appearing dissection of abdominal aorta, mild bibasilar atelectasis versus pneumonia. Discussed the CT image study result and care plan with surgeon Dr. Johnson. He agree we accept pt in our hospital, focus on small obstruction, put NG tube for pt, if pt clinically was not improved, then we might operate for pt. Routine laboratory tests show patient had normal range of WBC, hemoglobin 13.1, Lactic acid 1.8. In the ER, Patient is afebrile, patient is hemodynamic stable. Discussed the care goal with patient, patient clearly request DNR, at the time nurse is at the bedside. - CONSULTS | PROCEDURES Consultations: Dr. Pugh Procedures: no procedure - HOSPITAL COURSE Hospital Course: Patient was admitted for nausea, vomiting and abdominal pain. It was found to have small bowel obstruction. After the patient had bowel rest, NG tube, intravenous IV fluids, ambulation in the hospital. Patient's bowel obstruction was resolved. Patient having no any more abdominal pain, patient tolerated regular diet, patient has no nausea or vomiting, X-ray of abdomen show greatly improved, Patient passed a lot of gas. Patient was discharged in hemodynamically stable condition - ALLERGIES Allergies/Adverse Reactions: Allergies Allergy/AdvReac Type Severity Reaction Status Date / Time Sulfa (Sulfonamide Allergy Unknown Verified 12/22/20 13:00 Antibiotics) - MEDICATIONS Home Medications: Ambulatory Orders Medication Instructions Recorded Confirmed Atorvastatin Calcium [Lipitor] 20 mg ORAL DAILY 07/10/14 12/22/20 Aspirin 81 mg PO DAILY 11/01/16 12/22/20 Amiodarone [Pacerone] 100 mg PO DAILY 11/14/20 12/22/20 Apixaban [Eliquis] 5 mg PO BID 11/14/20 12/22/20 FLUoxetine [PROzac] 10 mg PO DAILY 11/14/20 12/22/20 Furosemide [Lasix] 20 mg PO DAILY 11/14/20 12/22/20 Potassium Chloride 20 meq PO DAILY 11/14/20 12/22/20 Tamsulosin [Flomax] 0.4 mg PO DAILY 11/14/20 12/22/20 Cholecalciferol [Vitamin D3] 1 cap PO DAILY 12/23/20 12/23/20 Glucosamine Sulfate 1 cap PO DAILY 12/23/20 12/23/20 Multivit with Iron,Minerals 1 tab PO DAILY 12/23/20 12/23/20 [Complete Senior] [place]-3S/Dha/Epa/Fish Oil [Fish 1 cap PO DAILY 12/23/20 12/23/20 Oil 1,200 mg Softgel] - PHYSICAL EXAM AT DISCHARGE General Appearance: positive: No acute distress, Alert. negative: Lethargic Eyes Bilateral: positive: Normal inspection, PERRL, No lid inflammation ENT: positive: ENT inspection nml, No signs of dehydration. negative: Purulent nasal drainage Neck: positive: Nml inspection, Trachea midline. negative: Thyromegaly, Tracheal deviation Respiratory: positive: Chest non-tender, No respiratory distress, Breath sounds nml. negative: Wheezes, Rales, Rhonchi Cardiovascular: positive: Regular rate & rhythm. negative: Tachycardia, Bradycardia, Systolic murmur Peripheral Pulses: positive: 2+ Abdomen: positive: Non-tender, Nml bowel sounds, No distention. negative: Tenderness, Guarding, Rebound Back: positive: Nml inspection. negative: CVA tenderness (R), CVA tenderness ( L) Skin: positive: Color nml, No rash, Warm, Dry. negative: Cyanosis, Diaphoresis, Pallor Extremities: positive: Non-tender, Full ROM, Nml appearance. negative: Calf tenderness Neurologic/Psychiatric: positive: Oriented x3, Motor nml, Sensation nml, Mood/affect nml. negative: Weakness, Sensory loss, Facial droop, Slurred/abnml speech, Depressed mood/affect - LABS Result Diagrams: 12/23/20 04:18 12/23/20 04:18 - FOLLOW UP Follow Up: you tolerate diet without abdominal pain, nausea or vomiting at all. You feel comfortable. you passed gas. Your abdominal Xray reveals significantly improved and you want to go home. surgeon recommended you avoid raw fruits and vegetables and high fiber foods for a couple weeks. 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 You may have CTA of abdomen/pelvis in one month to monitor your abdominal artery status, followup with vascular surgeon as out-pt. Should you have severe abdominal pain, you may immediately call 911 or present ER for help. You may followup with your PCP in one week, followup with vascular surgeon as out-pt. should your symptoms return or worsen, you may present ER or call 911 for help. - TIME SPENT Time Spent in Discharge (Minutes): 30"
== END 2020-12-23 17:52 | disposition home or self-care (01) | DRG 388 ==
LOC: EDUNIT# → ED 12:53 → MS3 16:24
PROVIDERS: ADMIT Nurse Practitioner Gerontology; ATTEND Nurse Practitioner Gerontology
DX: K56.609 Unspecified intestinal obstruction, unspecified as to partial versus complete obstruction (principal); I71.02 Dissection of abdominal aorta; E78.00 Pure hypercholesterolemia, unspecified; Z20.822 Contact with and (suspected) exposure to COVID-19; K92.1 Melena; I71.4 Abdominal aortic aneurysm, without rupture; I10 Essential (primary) hypertension; E78.5 Hyperlipidemia, unspecified; I70.8 Atherosclerosis of other arteries; N40.0 Benign prostatic hyperplasia without lower urinary tract symptoms; M19.90 Unspecified osteoarthritis, unspecified site; Z66 Do not resuscitate; Z95.2 Presence of prosthetic heart valve; Z79.01 Long term (current) use of anticoagulants; Z79.82 Long term (current) use of aspirin; Z79.899 Other long term (current) drug therapy
CPT/HCPCS: 36415; 71045; 74018; 74177; 80048; 80053; 81003; 83605; 83690; 83735; 85014; 85018; 85025; 85610; 85730; 87631; 93306; 96361; 96374; 99284; 99285; A9270; J1170; J1650; Q9967; 0202U; 81001; 87086

== ENCOUNTER 2021-01-11 09:59 | Outpatient (CLI) | payer MEDICARE, OTHER ==
[2021-01-11] MEDS ORDERED: IOVERSOL 320 100 ML VIAL IVP ONE ×2 (10:51→11:33)
--- NOTE | 2021-01-11 11:39 | CT Report ---
PROCEDURE: ANGIO ABDOMEN/PELVIS W INDICATIONS: AAA CONTRAST: IV CONTRAST: Optiray 320 ml: 100 PO CONTRAST: Isovue 300 ml50 TECHNIQUE: After the administration of intravenous contrast, 2 and 5 mm sections acquired from the diaphragm to the iliac crests. 3-dimensional maximum intensity projection (MIP) coronal and sagittal reformats, a nd/or 3-dimensional volume rendering reformatting was then performed. For radiation dose reduction, the following was used: automated exposure control, adjustment of mA and/or kV according to patient size. COMPARISON: CT examination dated 12/22/2020 FINDINGS: Image quality: Excellent. Extravascular tissues: There is mild dependent bibasilar atelectasis. Lung bases are otherwise clear . Heart size is normal. Liver and spleen are normal in size and enhancement. Gallbladder is within normal limits Biliary system is non dilated. Pancreas enhances normally. No adrenal nodules. Kid neys are normal in size and enhancement, without hydronephrosis. Non-opacified bowel loops demonstra te normal wall thickness and caliber. No free fluid or air. No retroperitoneal or mesenteric adenop athy. No ventral hernias. No suspicious bony abnormalities. No vertebral body compression fracture s. Abdominal aorta: There is fusiform aneurysmal dilatation of the infrarenal abdominal aorta, as befor e, with a current maximal short axis diameter of roughly 44 mm, as before. Chronic dissection with th e distal infrarenal abdominal aorta is present, as before. Iliac arteries: There is a moderate calcific origin stenosis of the right common iliac artery, which demonstrates aneurysmal dilatation, as before, currently measuring roughly 26 mm. There appears to be a chronic dissection plane entering the right common iliac artery origin, as before. High-grade calc ific stenosis of the right internal iliac artery. Right external iliac artery and right common femora l artery are patent. There is a moderate to high-grade stenosis of the proximal left common iliac art mary, which is aneurysmally dilated, as before, measuring roughly 22 mm short axis. Moderate to high-g rade left internal iliac artery origin stenosis. Left external iliac artery and common femoral artery are patent. Mesenteric arteries: There is mild calcific origin stenosis of the celiac and superior mesenteric ar teries. Inferior mesenteric artery demonstrates a moderate to high-grade origin stenosis. Renal arteries: Single bilateral renal arteries are present, which demonstrate mild diffuse calcific stenosis. IMPRESSION: 1. No change in aortoiliac aneurysms and dissection. 2. Bilateral common iliac artery stenoses. 3. No acute process. Reviewed by: Negrita Sarmiento MD on 01/11/2021 11:38 AM PDT Approved by: Negrita Sarmiento MD on 01/11/2021 11:38 AM PDT Station ID: [id number]
== END 2021-01-11 10:00 | disposition home or self-care (01) ==
LOC: DI 09:59
PROVIDERS: ATTEND Internal Medicine
DX: I70.8 Atherosclerosis of other arteries (principal)
CPT/HCPCS: 74174; Q9967

== ENCOUNTER 2021-10-19 09:01 | Outpatient (CLI) | payer MEDICARE, OTHER ==
[2021-10-19 17:13] LABS: BASOPHILS % (AUTO) 0.4 %; EOSINOPHILS # (AUTO) 0.2 10^3/uL (0.0-0.7); EOSINOPHILS % (AUTO) 3.9 %; HCT - HEMATOCRIT 40.6 % (42.0-52.0); HGB - HEMOGLOBIN 13.6 g/dL (14.0-18.0); LYMPHOCYTES # (AUTO) 0.7 10^3/uL (1.5-3.5); LYMPHOCYTES % (AUTO) 13.4 %; MEAN CORPUSCULAR HEMOGLOBIN 29.8 pg (27.0-31.0); MEAN CORPUSCULAR HGB CONC 33.5 g/dL (32.0-36.0); MEAN PLATELET VOLUME 11.2 fL (7.4-11.4); MONOCYTES # (AUTO) 0.7 10^3/uL (0.0-1.0); MONOCYTES % (AUTO) 14.9 %; NEUTROPHILS # (AUTO) 3.3 10^3/uL (1.5-6.6); NEUTROPHILS % (AUTO) 67.2 %; PLT - PLATELET COUNT 174 10^3/uL (130-450); RED BLOOD COUNT 4.56 10^6/uL (4.70-6.10); RED CELL DISTRIBUTION WIDTH 15.2 % (12.0-15.0); WHITE BLOOD COUNT 4.8 x10^3/uL (4.8-10.8)
[2021-10-19 17:29] LABS: ALBUMIN 4.4 g/dL (3.2-5.5); ALBUMIN/GLOBULIN RATIO 1.6 (1.0-2.2); ALKALINE PHOSPHATASE 93 IU/L (42-121); ALT ALANINE AMINOTRANSFERASE 23 IU/L (10-60); AST ASPARTATE AMINOTRANSFERASE 31 IU/L (10-42); BILIRUBIN,TOTAL 0.9 mg/dL (0.2-1.0); BUN - BLOOD UREA NITROGEN 21 mg/dL (6-20); CARBON DIOXIDE - CO2 27 mmol/L (21-32); CHLORIDE 95 mmol/L (101-111); CHOL/HDL RATIO 3.2 (<5.0); CHOLESTEROL 146 mg/dL; CREATININE 0.8 mg/dL (0.6-1.2); GFR - MDRD 92 (>89); GLUCOSE 89 mg/dL (70-100); HDL CHOLESTEROL 46 mg/dL; POTASSIUM 3.9 mmol/L (3.5-5.0); SODIUM 131 mmol/L (135-145); TOTAL PROTEIN 7.1 g/dL (6.7-8.2); TRIGLYCERIDES 31 mg/dL
== END 2021-10-19 09:02 | disposition home or self-care (01) ==
LOC: LAB.S 09:01
PROVIDERS: ATTEND Internal Medicine
DX: E78.5 Hyperlipidemia, unspecified (principal); Z79.899 Other long term (current) drug therapy
CPT/HCPCS: 36415; 80053; 80061; 83721; 85025

== ENCOUNTER 2022-03-10 10:41 | Outpatient (CLI) | payer MEDICARE, OTHER ==
--- NOTE | 2022-03-10 11:32 | XRAY Report ---
PROCEDURE: Knee 2 View LT INDICATIONS: LEFT KNEE PAIN TECHNIQUE: 2 views of the left knee(s) were acquired. COMPARISON: None. FINDINGS: Bones: No fractures or dislocations. Moderate medial femoral-tibial compartment osteophytic changes are seen. No suspicious bony lesions. Soft tissues: Small to moderate suprapatellar joint effusion is noted. No suspicious soft tissue calc ifications. IMPRESSION: Moderate medial femoral-tibial compartment osteoarthritis and small to moderate suprapat ellar joint effusion. No fracture or dislocation. Reviewed by: Dilip Gallegos MD on 03/10/2022 11:31 AM PDT Approved by: Dilip Gallegos MD on 03/10/2022 11:31 AM PDT Station ID: [id number]
== END 2022-03-10 10:42 | disposition home or self-care (01) ==
LOC: DI.S 10:41
PROVIDERS: ATTEND Nurse Practitioner Family
DX: M17.12 Unilateral primary osteoarthritis, left knee (principal); M25.462 Effusion, left knee

== ENCOUNTER 2022-10-28 13:16 | Outpatient (CLI) | payer MEDICARE, OTHER ==
--- NOTE | 2022-10-28 16:04 | XRAY Report ---
PROCEDURE: Ribs w/PA Chest LT INDICATIONS: CONTUSION OF LEFT THORAX TECHNIQUE: 4 views of the left ribs were acquired, along with a single view chest. 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 Aortic valve replacement. Bones and chest wall: There is a questionable minimally displaced fracture of the lateral aspect of the left ninth rib, cor relate with point tenderness. No definite displaced fracture identified otherwise. Lungs and pleura: No pleural effusions or pneumothorax. Lungs appear clear. Mediastinum: Mediastinal contours appear normal. Heart size is normal. IMPRESSION: Questionable minimally displaced fracture of the left ninth rib, correlate for point tenderness. If t here is further concern for occult injury, consider repeat radiography or cross-sectional imaging. Reviewed by: Melvin Hardy MD on 10/28/2022 4:02 PM [facility] Approved by: Melvin Hardy MD on 10/28/2022 4:02 PM PST Station ID: [id number]
== END 2022-10-28 13:17 | disposition home or self-care (01) ==
LOC: DI.S 13:16
PROVIDERS: ATTEND Nurse Practitioner
DX: S20.20XA Contusion of thorax, unspecified, initial encounter (principal)

== ENCOUNTER 2022-11-14 12:24 | Outpatient (CLI) | payer MEDICARE, OTHER ==
--- NOTE | 2022-11-14 16:21 | Ultrasound Report ---
PROCEDURE: Ext Limited Non Vascular INDICATIONS: SYNOVIAL CYST OF R POPLITEAL SPACE TECHNIQUE: Real-time scanning was performed of the left popliteal fossa, with image documentation. COMPARISON: Left knee radiograph on the same day and 03/10/2022. FINDINGS: Examination of left popliteal fossa shows thin-walled fluid collection with internal septa tion and low-level echoes measures 12.4 x 5.1 x 3.4 cm in size. No definite connection to the left kn ee joint is noted. IMPRESSION: Finding is suggestive of a large septated Mustafa's cyst in left popliteal fossa as above. Reviewed by: Dilip Gallegos MD on 11/14/2022 4:19 PM PST Approved by: Dilip Gallegos MD on 11/14/2022 4:19 PM PST Station ID: [id number]
== END 2022-11-14 12:25 | disposition home or self-care (01) ==
LOC: DI 12:24
PROVIDERS: ATTEND Nurse Practitioner Family
DX: M71.21 Synovial cyst of popliteal space [Baker], right knee (principal)

== ENCOUNTER 2022-11-14 12:27 | Outpatient (CLI) | payer MEDICARE, OTHER ==
--- NOTE | 2022-11-14 17:11 | XRAY Report ---
PROCEDURE: Knee 3 View LT INDICATIONS: Osteoarthritis left knee TECHNIQUE: 3 views of the left knee(s) were acquired. COMPARISON: None. FINDINGS: Bones: No fractures or dislocations. Moderate to severe tricompartmental osteoarthritis most notabl y in medial femoral tibial compartment is seen. No suspicious bony lesions. Soft tissues: Large joint effusion is noted. No suspicious soft tissue calcifications. IMPRESSION: Moderate to severe tricompartmental osteoarthritis and large joint effusion. No acute fr acture or dislocation. If indicated, MRI of knee can be done for further evaluation of internal deran gement. Reviewed by: Dilip Gallegos MD on 11/14/2022 5:09 PM PST Approved by: Dilip Gallegos MD on 11/14/2022 5:09 PM PST Station ID: [id number]
== END 2022-11-14 12:28 | disposition home or self-care (01) ==
LOC: DI 12:27
PROVIDERS: ATTEND Nurse Practitioner Family
DX: M17.12 Unilateral primary osteoarthritis, left knee (principal); M25.462 Effusion, left knee; M71.21 Synovial cyst of popliteal space [Baker], right knee

== ENCOUNTER 2022-12-01 07:57 | Outpatient (CLI) | payer MEDICARE, OTHER | END 2022-12-01 07:58 | disposition EMS.NT | LOC: EMS 07:57 | DX: R07.89 Other chest pain (principal) ==

== ENCOUNTER 2022-12-01 12:17 | Outpatient (CLI) | payer MEDICARE, OTHER ==
--- NOTE | 2022-12-01 13:22 | XRAY Report ---
PROCEDURE: Ribs Bilat w/Chest 4 View INDICATIONS: RIB PAIN AFTER FALL TODAY TECHNIQUE: 4 views of the ribs were acquired, along with a single view chest. COMPARISON: Left rib radiographs 10/28/2022. FINDINGS: Surgical changes and devices: TAVR stent. Cardiac monitoring device. Bones and chest wall: No displaced fractures rib fracture. Minimal undulation at the left 6-9th ribs is suspected. No dislocations. No suspicious bony lesions. Scoliosis. Overlying soft tissues appear unremarkable. Lungs and pleura: No pleural effusions or pneumothorax. Mild hazy opacity at the left lung base. Mediastinum: Mediastinal contours appear normal. Heart size is normal. IMPRESSION: No displaced rib fracture. Suspect prior nondisplaced left rib fractures. Hazy opacity at the left lung base. Favor atelectasis over pneumonia. Reviewed by: Jose Miguel Anderson MD on 12/01/2022 1:20 PM PST Approved by: Jose Miguel Anderson MD on 12/01/2022 1:20 PM PST Station ID: [id number]
== END 2022-12-01 23:59 | disposition home or self-care (01) ==
LOC: DI.S 12:17
PROVIDERS: ATTEND Physician Assistant Medical
DX: S20.20XA Contusion of thorax, unspecified, initial encounter (principal)

== ENCOUNTER 2023-03-02 12:14 | Outpatient (CLI) | payer MEDICARE, OTHER | END 2023-03-02 12:15 | disposition critical access hospital (66) | LOC: EMS 12:14 | DX: R55 Syncope and collapse (principal); R11.2 Nausea with vomiting, unspecified | CPT/HCPCS: A0425; A0429 ==

== ENCOUNTER 2023-03-02 12:48 | Emergency (ER) | payer MEDICARE, OTHER ==
--- OUTSIDE RECORDS SUMMARY | 2023-03-02 13:04 | EXTERNAL MEDICAL SUMMARY RPT | Continuity of Care Document ---
:1940 Author Organization [facility] Address [address] [place] [address] Phone Care Team Providers Name Role Phone Emily Washburn Pa-C Unavailable Unavailable Allergies No information. Encounters No information. Functional Status No information. Immunizations No information. Medications date description facility 2022-12-02 00:00 furosemide [facility] 2022-12-02 00:00 potassium chloride [facility] 2022-12-02 00:00 furosemide [facility] 2022-12-02 00:00 potassium chloride [facility] 2022-12-02 00:00 furosemide [facility] 2022-12-02 00:00 potassium chloride [facility] 2022-12-02 00:00 potassium chloride [facility] 2022-12-02 00:00 furosemide [facility] Problems No information. Procedures No information. Results/Labs No information. Social History No information. Vital Signs No information.
[2023-03-02 13:18] LABS: BASOPHILS % (AUTO) 0.2 %; EOSINOPHILS # (AUTO) 0.1 10^3/uL (0.0-0.7); HCT - HEMATOCRIT 37.5 % (42.0-52.0); HGB - HEMOGLOBIN 12.6 g/dL (14.0-18.0); LYMPHOCYTES # (AUTO) 0.5 10^3/uL (1.5-3.5); LYMPHOCYTES % (AUTO) 8.5 %; MEAN CORPUSCULAR HEMOGLOBIN 30.1 pg (27.0-31.0); MEAN CORPUSCULAR HGB CONC 33.6 g/dL (32.0-36.0); MEAN CORPUSCULAR VOLUME 89.7 fL (80.0-94.0); MEAN PLATELET VOLUME 9.6 fL (7.4-11.4); MONOCYTES # (AUTO) 0.6 10^3/uL (0.0-1.0); MONOCYTES % (AUTO) 10.4 %; NEUTROPHILS # (AUTO) 4.6 10^3/uL (1.5-6.6); NEUTROPHILS % (AUTO) 78.4 %; PLT - PLATELET COUNT 175 10^3/uL (130-450); RED BLOOD COUNT 4.18 10^6/uL (4.70-6.10); RED CELL DISTRIBUTION WIDTH 13.7 % (12.0-15.0); WHITE BLOOD COUNT 5.9 x10^3/uL (4.8-10.8)
--- NOTE | 2023-03-02 13:27 | XRAY Report ---
PROCEDURE: Chest 1 View X-Ray INDICATIONS: Chest Pain TECHNIQUE: One view of the chest was acquired. COMPARISON: CXR and rib radiographs 12/01/2022. FINDINGS: Surgical changes and devices: Cardiac device. TAVR stent. Lungs and pleura: No pleural effusions or pneumothorax. Left lung base hazy opacity. Mediastinum: Mediastinal contours appear normal. Heart size is normal. Bones and chest wall: No suspicious bony lesions. Overlying soft tissues appear unremarkable. IMPRESSION: Left lung base hazy opacity. Suspect atelectasis. Reviewed by: Jose Miguel Anderson MD on 03/02/2023 1:25 PM PDT Approved by: Jose Miguel Anderson MD on 03/02/2023 1:25 PM PDT Station ID: [id number]
[2023-03-02 14:09] LABS: ALBUMIN 3.9 g/dL (3.2-5.5); ALBUMIN/GLOBULIN RATIO 1.4 (1.0-2.2); BILIRUBIN,TOTAL 0.8 mg/dL (0.2-1.0); CALCIUM 8.8 mg/dL (8.5-10.3); CREATININE 0.7 mg/dL (0.6-1.2); POTASSIUM 3.8 mmol/L (3.5-5.0); TOTAL PROTEIN 6.6 g/dL (6.7-8.2)
[2023-03-02] MEDS ORDERED: SODIUM CHLORIDE 0.9% 1,000 ML IV ONE (14:25)
--- NOTE | 2023-03-02 14:33 | ED Physician Documentation ---
History of Present Illness - Stated complaint Stated Complaint: NEAR SYNCOPE/VOMITING - Chief complaint Chief Complaint: Neuro - History obtained from History obtained from: Patient, Family - Additonal information Additional information: Patient comes to the emergency department chief complaint of an episode of sweating, lightheadedness/near syncope, and nausea this morning. He states he woke up feeling just fine but around 11:00 this morning, he was sitting and eating with his and a friend who is a nurse when he suddenly began to feel lightheaded. He did not feel any chest pain or shortness of breath at that time, but began to sweat and put his head down on the table. He then became nauseated and vomited. The symptoms peaked and then began to get better but the total episode lasted around 30 minutes. He denies any abdominal pain. His nausea has resolved. The patient states that now he just feels quite tired. The patient has been followed by cardiology for some years after having an aortic valve replacement. He just saw his mortising machine operator 2 days ago and states his mortising machine operator that his heart is doing well. The patient has never had any evidence of coronary artery disease on stress testing, he states. He denies any history of angina. No recent medication changes. He has not felt ill with anything. He does have a history of weakness and falls over recent years. None of this has seemed to be worse lately though. PD PAST MEDICAL HISTORY - Past Medical History Cardiovascular: Hypertension, High cholesterol, Valve disorder Respiratory: None Neuro: Peripheral neuropathy Endocrine/Autoimmune: None GI: None : None Psych: None Musculoskeletal: Osteoarthritis - Past Surgical History Past Surgical History: Yes General: Appendectomy Ortho: Rotator cuff repair Cardiovascular: Valve replacement, Other - Present Medications Home Medications: Ambulatory Orders Medication Instructions Recorded Confirmed Atorvastatin Calcium [Lipitor] 20 mg ORAL DAILY 07/10/14 12/22/20 Aspirin 81 mg PO DAILY 11/01/16 12/22/20 Amiodarone [Pacerone] 100 mg PO DAILY 11/14/20 12/22/20 Apixaban [Eliquis] 5 mg PO BID 11/14/20 12/22/20 FLUoxetine [PROzac] 10 mg PO DAILY 11/14/20 12/22/20 Furosemide [Lasix] 20 mg PO DAILY 11/14/20 12/22/20 Potassium Chloride 20 meq PO DAILY 11/14/20 12/22/20 Tamsulosin [Flomax] 0.4 mg PO DAILY 11/14/20 12/22/20 Cholecalciferol [Vitamin D3] 1 cap PO DAILY 12/23/20 12/23/20 Glucosamine Sulfate 1 cap PO DAILY 12/23/20 12/23/20 Multivit with Iron,Minerals 1 tab PO DAILY 12/23/20 12/23/20 [Complete Senior] [place]-3S/Dha/Epa/Fish Oil [Fish 1 cap PO DAILY 12/23/20 12/23/20 Oil 1,200 mg Softgel] - Allergies Allergies/Adverse Reactions: Allergies Allergy/AdvReac Type Severity Reaction Status Date / Time Sulfa (Sulfonamide Allergy Unknown Verified 12/22/20 13:00 Antibiotics) - Social History Does the pt smoke?: No Smoking Status: Never smoker Does the pt drink ETOH?: Yes Does the pt have substance abuse?: No - Immunizations Immunizations are current?: Yes - POLST Patient has POLST: No PD ED PE NORMAL - Vitals Vital signs reviewed: Yes - General General: Alert and oriented X 3, No acute distress, Well developed/nourished - HEENT HEENT: Atraumatic, PERRL, EOMI, Moist mucous membranes - Neck Neck: Supple, no meningeal sign - Cardiac Cardiac: RRR, Strong equal pulses, Other (Clicks consistent with aortic valve prosthesis. 1 out of 6 systolic murmur.) - Respiratory Respiratory: No respiratory distress, Clear bilaterally - Abdomen Abdomen: Soft, Non tender, Non distended - Derm Derm: Normal color, Warm and dry, No rash - Extremities Extremities: No deformity, No edema - Neuro Neuro: Alert and oriented X 3, Other (Grossly intact) - Psych Psych: Normal mood, Normal affect Results - Vitals Vitals: Vital Signs - 24 hr 03/02/23 03/02/23 12:57 15:30 Temperature 36.7 C Heart Rate 56 L 55 L Respiratory 18 18 Rate Blood Pressure 181/101 H 177/65 H O2 Saturation 98 100 Oxygen O2 Source Room air - EKG (time done) 1302 EKG releavant findings:: EKG personally interpreted by author of this note. Relevant findings are: Rate: Rate (enter#) (59) Rhythm: NSR [place]: Normal Intervals: Normal [place], Other (Nonspecific intraventricular conduction delay.) QRS: Normal Ischemia: Normal ST segments Compare to prior EKG: Old EKG unavailable Computer interpretation: Agree with computer - Labs Labs: Laboratory Tests 03/02/23 03/02/23 03/02/23 13:09 13:09 13:09 WBC 5.9 RBC 4.18 L Hgb 12.6 L Hct 37.5 L MCV 89.7 MCH 30.1 MCHC 33.6 RDW 13.7 Plt Count 175 MPV 9.6 Neut # (Auto) 4.6 Lymph # (Auto) 0.5 L [place] # (Auto) 0.6 Eos # (Auto) 0.1 Baso # (Auto) 0.0 Absolute Nucleated RBC 0.00 Nucleated RBC % 0.0 Sodium 130 L Potassium 3.8 Chloride 95 L Carbon Dioxide 24 Anion Gap 11.0 BUN 21 H Creatinine 0.7 Estimated GFR (MDRD) 107 Glucose 109 H Calcium 8.8 Total Bilirubin 0.8 AST 28 ALT 24 Alkaline Phosphatase 114 Troponin I High Sens 6.7 B-Natriuretic Peptide Total Protein 6.6 L Albumin 3.9 Globulin 2.7 Albumin/Globulin Ratio 1.4 Lipase 32 03/02/23 03/02/23 13:09 14:40 WBC RBC Hgb Hct MCV MCH MCHC RDW Plt Count MPV Neut # (Auto) Lymph # (Auto) [place] # (Auto) Eos # (Auto) Baso # (Auto) Absolute Nucleated RBC Nucleated RBC % Sodium Potassium Chloride Carbon Dioxide Anion Gap BUN Creatinine Estimated GFR (MDRD) Glucose Calcium Total Bilirubin AST ALT Alkaline Phosphatase Troponin I High Sens 7.5 B-Natriuretic Peptide 67 Total Protein Albumin Globulin Albumin/Globulin Ratio Lipase - Rads (name of study) Chest x-ray Relevant Findings:: Final report received, See rad report (Atelectasis left lung base) PD Medical Decision Making - ED course Complexity details: reviewed results, re-evaluated patient, considered differential, d/w patient ED course: The patient was very well-appearing in the emergency department but given his age and the reported incident that he had, I did work him up from a cardiac standpoint with CBC, ear abdominal panel and both initial and repeat troponins. He also had an EKG and chest x-ray performed here. His entire work-up was negative. The patient was feeling much better and his blood pressure was coming down from what he reported to have noted at home when symptoms started. The patient was feeling somewhat tired but otherwise has been asymptomatic for his entire time in the emergency department and I felt he was stable for discharge. We have discussed that if the patient can continues to have episodes like this frequently, then he will need to follow-up with his mortising machine operator to determine what is going on. We have discussed the usual indications for return, as well. Departure - Departure Disposition: Home, Self Care Clinical Impression: Near syncope Hypertension Qualifiers: Hypertension type: unspecified Qualified Code(s): I10 - Essential (primary) hypertension Condition: Stable Instructions: ED HTN Established, ED Near Syncope Unkn Comments: Your laboratory studies, EKG, and chest x-ray all look good. Your heart rhythm has looked good here and there is no evidence of a concerning cardiac condition at this time. Your blood pressure was very high prior to your coming in and this may have been partly responsible for your episode. However, it has been steadily coming down since she been in the emergency department. If you continue to have episodes of very high blood pressure like you had today, you will need to talk to your doctor about having your medications adjusted to better control your blood pressure. If you develop severe chest pain or shortness of breath, we would like to see you back here immediately. Otherwise, please schedule follow-up appointment with your primary doctor for further concerns. Discharge Date/Time: 03/02/23 15:34
[2023-03-02 15:30] VITALS: BP 177/65
== END 2023-03-02 15:34 | disposition home or self-care (01) ==
LOC: EDUNIT# → ED 12:48
DX: R55 Syncope and collapse (principal); I10 Essential (primary) hypertension
CPT/HCPCS: 36415; 80053; 83690; 83880; 84484; 85025; 93005; 99283; 99284

== ENCOUNTER 2023-03-09 17:30 | Outpatient (CLI) | payer MEDICARE, OTHER | END 2023-03-09 23:59 | disposition EMS.NT | LOC: EMS 17:30 | DX: S51.011A Laceration without foreign body of right elbow, initial encounter (principal); W18.39XA Other fall on same level, initial encounter; Y92.009 Unspecified place in unspecified non-institutional (private) residence as the place of occurrence of the external cause ==

== ENCOUNTER 2023-03-20 08:09 | Outpatient (CLI) | payer MEDICARE, OTHER | END 2023-03-20 08:10 | disposition critical access hospital (66) | LOC: EMS 08:09 | DX: R55 Syncope and collapse (principal) | CPT/HCPCS: A0425; A0429 ==

== ENCOUNTER 2023-03-20 08:41 | Observation (INO) | payer MEDICARE, OTHER ==
--- NOTE | 2023-03-20 08:55 | ED Physician Documentation ---
PD HPI HEAD INJURY - Stated complaint Stated Complaint: SYNCOPE - History obtained from History obtained from: Patient - Additional information Additional information: 83-year-old gentleman status post remote aortic valve replacement. Also on Eliquis but he is unsure why. Had a syncopal episode this morning. He says he was feeling bad with lightheadedness and feeling weird for about 2 minutes. There is no associated chest pain or trouble breathing. Then he passed out from a sitting position. Reportedly did hit his head but does not feel injured. He had a fall about a week ago and has 2 broken ribs from that and is not sleeping well. Sleeping in a recliner because it hurts too much to get in and out of bed. Occasionally takes Tylenol for the rib pain. PD PAST MEDICAL HISTORY - Past Medical History Cardiovascular: Hypertension, High cholesterol, Valve disorder Respiratory: None Neuro: Peripheral neuropathy Endocrine/Autoimmune: None GI: None : None Psych: None Musculoskeletal: Osteoarthritis - Past Surgical History Past Surgical History: Yes General: Appendectomy Ortho: Rotator cuff repair Cardiovascular: Valve replacement, Other - Present Medications Home Medications: Ambulatory Orders Medication Instructions Recorded Confirmed Atorvastatin Calcium [Lipitor] 20 mg ORAL DAILY 07/10/14 12/22/20 Aspirin 81 mg PO DAILY 11/01/16 12/22/20 Amiodarone [Pacerone] 100 mg PO DAILY 11/14/20 12/22/20 Apixaban [Eliquis] 5 mg PO BID 11/14/20 12/22/20 FLUoxetine [PROzac] 10 mg PO DAILY 11/14/20 12/22/20 Furosemide [Lasix] 20 mg PO DAILY 11/14/20 12/22/20 Potassium Chloride 20 meq PO DAILY 11/14/20 12/22/20 Tamsulosin [Flomax] 0.4 mg PO DAILY 11/14/20 12/22/20 Cholecalciferol [Vitamin D3] 1 cap PO DAILY 12/23/20 12/23/20 Glucosamine Sulfate 1 cap PO DAILY 12/23/20 12/23/20 Multivit with Iron,Minerals 1 tab PO DAILY 12/23/20 12/23/20 [Complete Senior] [place]-3S/Dha/Epa/Fish Oil [Fish 1 cap PO DAILY 12/23/20 12/23/20 Oil 1,200 mg Softgel] - Allergies Allergies/Adverse Reactions: Allergies Allergy/AdvReac Type Severity Reaction Status Date / Time Sulfa (Sulfonamide Allergy Unknown Verified 03/20/23 08:57 Antibiotics) - Social History Does the pt smoke?: No Smoking Status: Never smoker Does the pt drink ETOH?: Yes Does the pt have substance abuse?: No - Immunizations Immunizations are current?: Yes - POLST Patient has POLST: No PD ED PE NORMAL - Vitals Vital signs reviewed: Yes - General General: Alert and oriented X 3, No acute distress - HEENT HEENT: PERRL, EOMI - Neck Neck: Supple, no meningeal sign, No bony TTP - Cardiac Cardiac: RRR, No murmur - Respiratory Respiratory: No respiratory distress, Clear bilaterally, Other (Rib tape right lateral lower) - Abdomen Abdomen: Non tender - Derm Derm: Normal color, Warm and dry - Extremities Extremities: No edema, No calf tenderness / cord - Neuro Neuro: Alert and oriented X 3, Normal speech Results - Vitals Vitals: Vital Signs - 24 hr 03/20/23 08:54 Temperature 36.3 C L Heart Rate 52 L Respiratory 16 Rate Blood Pressure 163/89 H O2 Saturation 100 Oxygen O2 Source Room air - EKG (time done) 0848 EKG releavant findings:: EKG personally interpreted by author of this note. Relevant findings are: Rate: Rate (enter#) (52) Rhythm: NSR, LAE [place]: Normal Intervals: Normal [place]. No: Prolonged QT QRS: LVH Ischemia: Normal ST segments - Labs Labs: Laboratory Tests 03/20/23 03/20/23 03/20/23 09:32 09:32 09:32 WBC 4.6 L RBC 4.07 L Hgb 12.2 L Hct 36.1 L MCV 88.7 MCH 30.0 MCHC 33.8 RDW 13.5 Plt Count 193 MPV 9.5 Neut # (Auto) 3.3 Lymph # (Auto) 0.5 L [place] # (Auto) 0.6 Eos # (Auto) 0.2 Baso # (Auto) 0.0 Absolute Nucleated RBC 0.00 Nucleated RBC % 0.0 Sodium 128 L Potassium 3.6 Chloride 93 L Carbon Dioxide 26 Anion Gap 9.0 BUN 13 Creatinine 0.6 Estimated GFR (MDRD) 128 Glucose 97 Calcium 8.7 Total Bilirubin 0.7 AST 26 ALT 21 Alkaline Phosphatase 127 H Troponin I High Sens 6.3 Total Protein 6.4 L Albumin 3.7 Globulin 2.7 Albumin/Globulin Ratio 1.4 Lipase 30 - Rads (name of study) CT of the head and cervical spine are unremarkable Relevant Findings:: Final report received, EMP independent interpretation of test PD Medical Decision Making - ED course ED course: 83-year-old gentleman with recent rib fractures and remotely had an aortic valve replacement. He is anticoagulated but not sure why, presumed history of atrial fibrillation but he is not clear on that. On initial evaluation he had said to me that he recently had a normal echocardiogram. 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 I ordered an echo but the hospitalistechocardiography Monday through . After discussion seems reasonable to place him in observation for cardiac monitoring and echocardiography given his history. Note made he will be boarding in the emergency department pending admission given hospital capacity issues. Spoke with Dr. Leary for admission at 10:45 AM Departure - Departure Disposition: ED Place in Observation Clinical Impression: Hx of aortic valve repair, Anticoagulant long-term use, Syncope Condition: Stable
--- OUTSIDE RECORDS SUMMARY | 2023-03-20 09:01 | EXTERNAL MEDICAL SUMMARY RPT | Continuity of Care Document ---
Author Name Unknown Address [address] [place] [address] Phone Organization [facility] Address [address] [place] [address] Phone Care Team Providers Care Senior Occupational Therapist Name Role Phone Unavailable Unavailable Unavailable Emily Washburn Pa-C Unavailable Unavailable Strekamar Patient Registrar, Kari Unavailable Unavailable Medications date description facility 2023-03-13 00:00 furosemide [facility] [place] 2023-03-16 00:00 furosemide [facility] [place] 2023-03-13 00:00 potassium chloride [facility] [place] 2023-03-16 00:00 potassium chloride [facility] [place] 2023-03-13 00:00 furosemide [facility] [place] 2023-03-16 00:00 furosemide [facility] [place] 2023-03-13 00:00 potassium chloride [facility] [place] 2023-03-16 00:00 potassium chloride [facility] [place] 2023-03-13 00:00 furosemide [facility] [place] 2023-03-16 00:00 furosemide [facility] [place] 2023-03-13 00:00 potassium chloride [facility] [place] 2023-03-16 00:00 potassium chloride [facility] [place] 2023-03-13 00:00 potassium chloride [facility] [place] 2023-03-16 00:00 potassium chloride [facility] [place] 2023-03-13 00:00 furosemide [facility] [place] 2023-03-16 00:00 furosemide [facility] [place] Problems date description facility 2023-03-13 00:00 Closed fracture of m ultiple right ribs [facility] [place] 2023-03-13 00:00 Multiple fractures o f ribs, right side, initial encounter for closed fracture [facility] [place] Procedures date description facility 2023-03-13 00:00 Visit Code Hold [facility] [place] Social History date description facility 2023-03-13 00:00 Former smoker [facility] [place] Vital Signs date measurement value units 2023-03-13 00:00 BMI 22.81 kg/m2 2023-03-13 00:00 BP_diastolic 87 mmHg 2023-03-13 00:00 BP_systolic 160 mmHg 2023-03-13 00:00 heart_rate 56 /min 2023-03-13 00:00 height_metric 175.9 cm 2023-03-13 00:00 height_standard 69.25 in 2023-03-13 00:00 respiration_rate 16 /min 2023-03-13 00:00 temperature_metric 36.11 C 2023-03-13 00:00 temperature_standard 97 F 2023-03-13 00:00 weight_metric 70.31 kg 2023-03-13 00:00 weight_standard 155 lb
--- NOTE | 2023-03-20 09:14 | CT Report ---
PROCEDURE: HEAD WO INDICATIONS: fall anticoag TECHNIQUE: Noncontrast 4.5 mm thick angled axial sections acquired from the foramen magnum to the vertex. For r adiation dose reduction, the following was used: automated exposure control, adjustment of mA and/or kV according to patient size. COMPARISON: 11/10/2020 FINDINGS: Image quality: Good CSF spaces: Basal cisterns are patent. Lateral ventricles are symmetric. Volume: Moderate Brain: No intracranial hemorrhage. Dahl-white differentiation is grossly maintained. Craniofacial structures: No displaced fracture. Sinuses are clear. Orbits are intact. IMPRESSION: No acute intracranial abnormality. Reviewed by: Melvin Hardy MD on 03/20/2023 9:12 AM PDT Approved by: Melvin Hardy MD on 03/20/2023 9:12 AM PDT Station ID: [id number]
--- NOTE | 2023-03-20 09:15 | CT Report ---
PROCEDURE: CERVICAL SPINE WO INDICATIONS: fall anticoag TECHNIQUE: Noncontrast 3 mm thick sections acquired from the skull base to the T4 level. Sagittal and coronal r eformats were then constructed. For radiation dose reduction, the following was used: automated exp osure control, adjustment of mA and/or kV according to patient size. COMPARISON: None. FINDINGS: Image quality: Good Bones: There is reversal of normal cervical lordosis. Vertebral body heights are well-maintained. No traumatic subluxation identified. Overall moderate spondylotic changes, particularly at C5-C6 and C6- C7. Soft tissues: There are vascular calcifications. No pathologic prevertebral soft tissue swelling. No actionable thyroid nodule identified. IMPRESSION: No acute fracture or traumatic subluxation of the cervical spine. If there is high concer n for further derangement, consider MRI evaluation. Reviewed by: Melvin Hardy MD on 03/20/2023 9:14 AM PDT Approved by: Melvin Hardy MD on 03/20/2023 9:14 AM PDT Station ID: [id number]
--- NOTE | 2023-03-20 09:16 | XRAY Report ---
PROCEDURE: Chest 1 View X-Ray INDICATIONS: syncope TECHNIQUE: One view of the chest was acquired. COMPARISON: 03/02/2023 FINDINGS: Surgical changes and devices: Aortic valve replacement and cardiac monitoring device. Lungs and pleura: No dense consolidation or pleural effusion. Low lung volumes, slightly limiting ev aluation. Mediastinum: Mediastinal contours appear normal. Heart size is normal. Bones and chest wall: No suspicious bony lesions. Overlying soft tissues appear unremarkable. IMPRESSION: No acute radiographic abnormality on the single view radiograph. Reviewed by: Melvin Hardy MD on 03/20/2023 9:15 AM PDT Approved by: Melvin Hardy MD on 03/20/2023 9:15 AM PDT Station ID: [id number]
[2023-03-20 09:39] LABS: BASOPHILS % (AUTO) 0.4 %; EOSINOPHILS # (AUTO) 0.2 10^3/uL (0.0-0.7); EOSINOPHILS % (AUTO) 3.5 %; HCT - HEMATOCRIT 36.1 % (42.0-52.0); HGB - HEMOGLOBIN 12.2 g/dL (14.0-18.0); LYMPHOCYTES # (AUTO) 0.5 10^3/uL (1.5-3.5); MEAN CORPUSCULAR HGB CONC 33.8 g/dL (32.0-36.0); MEAN CORPUSCULAR VOLUME 88.7 fL (80.0-94.0); MEAN PLATELET VOLUME 9.5 fL (7.4-11.4); MONOCYTES # (AUTO) 0.6 10^3/uL (0.0-1.0); MONOCYTES % (AUTO) 13.7 %; NEUTROPHILS # (AUTO) 3.3 10^3/uL (1.5-6.6); NEUTROPHILS % (AUTO) 72.2 %; PLT - PLATELET COUNT 193 10^3/uL (130-450); RED BLOOD COUNT 4.07 10^6/uL (4.70-6.10); RED CELL DISTRIBUTION WIDTH 13.5 % (12.0-15.0); WHITE BLOOD COUNT 4.6 x10^3/uL (4.8-10.8)
[2023-03-20 09:51] LABS: ALBUMIN 3.7 g/dL (3.2-5.5); ALBUMIN/GLOBULIN RATIO 1.4 (1.0-2.2); BILIRUBIN,TOTAL 0.7 mg/dL (0.2-1.0); CALCIUM 8.7 mg/dL (8.5-10.3); CREATININE 0.6 mg/dL (0.6-1.2); POTASSIUM 3.6 mmol/L (3.5-5.0); TOTAL PROTEIN 6.4 g/dL (6.7-8.2)
[2023-03-20] MEDS ORDERED: oxyCODONE 5 MG TABLET PO PRN (10:46)
[2023-03-20] MEDS ORDERED: SODIUM CHLORIDE FLUSH 0.9% 10 ML SYRINGE IVP PRN (10:46)
[2023-03-20] MEDS ORDERED: ONDANSETRON ODT 4 MG TABLET TL PRN (10:46)
[2023-03-20] MEDS ORDERED: ONDANSETRON 4 MG/2 ML VIAL IVP PRN (10:46)
--- NOTE | 2023-03-20 11:11 | HISTORY & PHYSICAL EXAMINATION ---
Chief Complaint - Chief Complaint Chief Complaint: syncope History of Present Illness - Admitted From Admitted From:: home - History Obtained From Records Reviewed: [employer] [facility] [employer] (which has records from [facility]) History obtained from: patient, patient's and daughter and Dr. Villarreal Exam Limitations: his memory loss - History of Present Illness HPI Comment/Other: This is a gentleman who has chronic atrial fibrillation. However it is intermittent. Over the years sometimes is present on EKG, sometimes it does not. He is on anticoagulation for this. He also has a history of aortic valve repair. He had presented with congestive heart failure, significant dyspnea on exertion, as well as syncope in the prepandemic time. He underwent a TAVR in January 2020 and his says that they got" under the wire" before everything shut down. He is shortness of breath and congestive heart failure symptoms resolved. He last saw his international sourcing manager a few weeks ago and he is due to get a routine echocardiogram in the near future. His main problem has been a gradually progressive dementia as well as a gradually progressive problem with balance and falls. He is losing recollection of correct sequence of events. Forgetting words. Forgetting people. It is getting harder for him to keep his thoughts together. There are good days and bad days. 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 Its been very wearing on his . He has been evaluated by Dr. Payne at [facility]. He does have peripheral neuropathy of unknown etiology. Macular degeneration. And deafness. They feel that those 3 things are the reason he is falling more and more. As for his memory loss, they have not given him a diagnosis of Alzheimer's. Right now they are wondering if it is just memory loss of aging. But his feels that they are not paying attention and that his memory loss is getting progressively more severe. He fell in September last year, November of this year, and most recently 3 weeks ago. He really bruised his rib cage and he has not been able to sleep in bed. He has been sleeping in a recliner. He does not really remember the passing out from before. He just remembers that happened. concurs. He has had no new events. No new medication changes. He has not been acutely ill. She make sure that he has adequate fluid intake and food intake and that has not changed. There has not been any chest pain, cough, congestion. Rather any chest pain he has, has his been from the rib cage being severely bruised with his last fall. He has symptoms of urinary retention, but that is unchanged. There is been no new dysuria or urgency. No cloudy urine. No hematuria. Bowels are unchanged. This morning he got up as usual. He had been sitting and got up with his walker to walk into the kitchen. She immediately noticed that he was walking abnormally was almost a "stiffness" to his gait and a lack of focus to his gaze. He went stiff enough that he then struck the back of his head. The patient remembers that he just did not feel well for a couple of minutes as he sat there, before he got up, and then he got up and that is the last thing he remembers. He is on Eliquis for the A-fib. He denies chest pain, palpitations. No flushing, nausea, and is very vague about why he did not feel well. In the emergency room temperature was 36.3. Heart rate 52. Blood pressure 163/89. Respirations 16 and 100% on room air. He was described as alert and oriented x3. No distress. Physical exam was essentially benign other than that of an elderly gentleman. He had clear lungs, and rib tape in the right lateral lower chest. But abdomen was benign, and neurological exam was normal. I reviewed his studies. His EKG had normal sinus rhythm. CBC was normal except for a mildly lowered white cell count at 4.6. Sodium was 128, potassium 3.6, troponin was 6.3. Head CT had no acute intracranial abnormality. There were no fractures or bleeds. Cervical spine CT was reviewed and I see that there is no acute fracture or traumatic subluxation of the cervical spine. Same for the chest x-ray. In reviewing the chest x-ray there is no acute radiologic abnormality. The ER provider, Dr. Villarreal, asked if I could please evaluate the patient for admission. 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) Respiratory: reports: None Neuro: reports: Peripheral neuropathy, Other (gait ataxia w falls, uses walker (peripheral neuropathy, macular degen, spinal stenosis)) Endocrine/Autoimmune: reports: None GI: reports: Colon polyps (on scope 2008, fu scope 2013), Hepatitis (chronic LFT elevation, no infection), Other (High grade SBO 11/2020, resolved w/o surgery) : reports: Benign prostate hypertrophy (LUTS present w freg nocturia), Retention, Nocturia, Frequency HEENT: reports: Macular degeneration, Chronic hearing loss (deaf) Psych: reports: None Musculoskeletal: reports: Osteoarthritis (knee injection 02/2022 w [facility]), Chronic back pain, Other (olecranon bursitis) Derm: reports: Other (basal cell ca and AK) MRSA Hx?: No - Past Surgical History General: reports: Cholecystectomy, Appendectomy, Colonoscopy Ortho: reports: Rotator cuff repair Cardiovascular: reports: Valve replacement, AAA, Other HEENT: reports: Cataracts (both done 2016) Derm: reports: Skin cancer surgery (basal cell ca removal) - Family & Social History Family History: Mother: , Father: Family History Comment/Other: Dad of MS age 72. Mom of cancer. 2 children who are alive and well. Daughter has thyroid and B12 deficiency. Living arrangement: At home Living Situation: With spouse/s.o. Social History Notes: former smoker Who smoked from age 18 to age 26. over 50 years, To his first . They were both born in [facility]. 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 Lived in [place] for 25 years, retired, and then came to [facility] and they been here since the age of 58 for him. no recreational substance abuse. Drank excessively in his 20s. But he slowed down over time and over the last 2-3 decades really only drinks a glass of wine a night. - POLST Patient has POLST: No POLST Status: DNR ( would like me to fill out a POLST form with her.) Meds/Allgy - Home Medications Home Medications: Ambulatory Orders Medication Instructions Recorded Confirmed Atorvastatin Calcium [Lipitor] 20 mg PO DAILY 07/10/14 03/20/23 Amiodarone [Pacerone] 100 mg PO DAILY 11/14/20 03/20/23 Apixaban [Eliquis] 5 mg PO BID 11/14/20 03/20/23 FLUoxetine [PROzac] 10 mg PO DAILY 11/14/20 03/20/23 Tamsulosin [Flomax] 0.4 mg PO QPM 11/14/20 03/20/23 Cholecalciferol [Vitamin D3] 1 cap PO QPM 12/23/20 03/20/23 Glucosamine Sulfate 1 cap PO QPM 12/23/20 03/20/23 [place]-3S/Dha/Epa/Fish Oil [Fish 1 cap PO QPM 12/23/20 03/20/23 Oil 1,200 mg Softgel] Alpha Lipoic Acid 600 mg PO DAILY 03/20/23 03/20/23 Multivit-Min/Ferrous Sulfate [One 1 each PO DAILY 03/20/23 03/20/23 Daily Multivitamin-Mineral] - Allergies Allergies/Adverse Reactions: Allergies Allergy/AdvReac Type Severity Reaction Status Date / Time Sulfa (Sulfonamide Allergy Unknown Verified 03/20/23 08:57 Antibiotics) Review of Systems - Constitutional Constitutional: reports: Fatigue. denies: Fever, Chills, Malaise, Weakness, Poor appetite, Night sweats, Weight loss, Other - Eyes Eyes: reports: Blurred vision, Vision loss (chronic and worsening). denies: Pain, Irritation, Amaurosis - Ears, Nose & Throat Ears, Nose & Throat: reports: Hearing loss. denies: Ear pain, Hearing aids, Tinnitus, Vertigo, Sore throat, Hoarseness, Bleeding gums, Dental decay - Cardiovascular Cariovascular: reports: Lightheadedness, Syncope. denies: Irregular heart rate, Palpitations, Chest pain, Edema, Exertional dyspnea, Decr. exercise tolerance - Respiratory Respiratory: reports: Other (He had dyspnea on exertion that was quite severe before his TAVR. None of that is present now). denies: Cough, Sputum production, Wheezing, Snoring, SOB at rest, SOB with exertion - Gastrointestinal Gastrointestinal: reports: Other (cologuard (+) 12/2022). denies: Abdominal pain, Abdominal distention, Constipation, Diarrhea, Change in bowel habits, Rectal bleeding - Genitourinary Genitourinary: reports: Frequency, Urgency, Nocturia. denies: Dysuria, Hematuria, Incontinence - Musculoskeletal Musculoskeletal: reports: Limited range of motion, Joint pain, Joint swelling (Left knee Mustafa's cyst is really bothering him. He has had it drained twice and it does not work. The neck step would be surgery but he is not a candidate for surgery). denies: Muscle pain, Back pain - Integumentary Integumentary: denies: Rash, Pruritis, Lesions, Dryness - Neurological Neurological: reports: Memory problems, Incoordination (fall 09/2022, 11/2022, and March 13, 2023). denies: General weakness, Focal weakness, Headache, Dizziness - Psychiatric Psychiatric: reports: Depression (Waxes and wanes depending on his recognition of his memory loss. He does not want to be a burden to his .) - Endocrine Endocrine: denies: Polyuria, Polydypsia, Polyphagia, Intolerance to cold - Hematologic/Lymphatic Hematologic/Lymphatic: reports: Bruising. denies: Anemia, Petechiae, Blood clots, Lymphadenopathy Prior Level of Functionality: uses a wheelchair bc of falls, back pain and neuropathy. He is able to dress himself, feed himself. But he needs constant supervision because he is impulsive and his risk of falls are nerve-racking for his . Exam - Vital Signs Reviewed Vital Signs: Yes Vital Signs: Vital Signs x48h Temp Pulse Resp BP Pulse Ox 03/20/23 08:54 36.3 C L 52 L 16 163/89 H 100 - Physical Exam General Appearance: positive: No acute distress (He absolutely left the hospital bed because this is the first time he is been able to lay down in the last 10 days since his fall.), Alert, Other (Thin elderly gentleman, lucid speech, poor historian, absolutely charming) Eyes Bilateral: positive: PERRL (But parts of his vision are completely gone because of the macular degeneration), EOMI ENT: positive: No signs of dehydration Neck: positive: No JVD. negative: Stiff neck Respiratory: positive: No respiratory distress, Other (Tender right mid and anterior rib cage). negative: Wheezes, Rales, Rhonchi Cardiovascular: positive: Regular rate & rhythm, Systolic murmur Peripheral Pulses: positive: 1+ Abdomen: positive: Non-tender, No organomegaly, Nml bowel sounds, No distention Skin: positive: Warm, Dry Extremities: positive: No pedal edema, Joint swelling (Posterior knee is swollen. He is wearing a wrap around it. Cannot fully flex. It really hurts.) Neurologic/Psychiatric: positive: CN's nml (2-12), Motor nml, Disoriented to time. negative: Facial droop, Slurred/abnml speech, Depressed mood/affect Conclusion/Plan - Problem List (1) Syncope Conclusion/Plan: My suspicion is that of orthostatic syncope. A few minutes of not feeling well with no specific cardiac events. No seizure activity. And then syncope with immediate response and waking up. No antecedent illness. I do not think this is vasovagal. He does not take any medications that would cause orthostatic changes other than Flomax. Plan: My decision is to place him in observation status Telemetry to observe for any arrhythmias such as PSVT or paroxysmal atrial fibrillation. I doubt ventricular tachycardia in a person who does not have a dilated ventricle Repeat troponins Echocardiogram in the morning to evaluate his aortic valve Qualifiers: Syncope type: unspecified Qualified Code(s): R55 - Syncope and collapse (2) Memory loss Conclusion/Plan: Progressive, worsening. Ongoing for about 2 or 3 years now. and daughter are both slightly tearful as they sit at his bedside right now and they listen to him make memory mistakes. It really upsets him. He is not aware of it. As far as his knows he has no thyroid problems, B12 problems. The neurologist at [facility] has done an evaluation for the memory loss. They are asking if anything can be done. Plan: Other than making sure he is work-up is complete it, I do not think there is much to do. Unfortunately he could have Alzheimer's dementia, vascular dementia, and I did briefly think about alcohol induced dementia but he did not drink that much for too long. He does not help but he has macular degeneration and deafness that does not allow him to actively use his brain in a way he likes to use his brain. The most I can recommend is that they follow-up with Dr. Payne at [facility]. To more explicitly expressed their concerns and see if there is anything she would recommend. (3) Bakers cyst Conclusion/Plan: He is already had 2 attempted drainage procedures. 1 was done at [facility], and the other was done with an orthopedic surgeon in [place]. I went over the progression of a Mustafa's cyst. And he is not a candidate for an open knee surgery. Plan: Continue to try and exercise with flexion and extension. And I also described a compounded medication that uses ketoprofen, baclofen, lidocaine, and DMSO. It is a cream that he would then put a very small dollop over the area that hurts for pain relief. They are interested in using that and I will communicate that to his PCP office by writing it down on a piece of paper. They can take that piece of paper to the PCP Qualifiers: Laterality: left Qualified Code(s): M71.22 - Synovial cyst of popliteal space [Mustafa], left knee (4) Risk for falls Conclusion/Plan: This gentleman has already fallen 3 times in the last 6 months. I delicately presented the problem to the family as a problem that could continue to worsen and unfortunately worsened his overall status. He is also at risk for intracerebral bleed or spontaneous bleeding because of the Eliquis. Plan: I would recommend that they discuss his has bled score, or risk of intracerebral bleed, and consider coming off of anticoagulation. But they should discuss that with the international sourcing manager. (5) Chronic hyponatremia Conclusion/Plan: The most common cause of low sodium at this point in time and most patients across country is serotonin reuptake inhibitors. He is on Prozac. He is not symptomatic. I would not recommend any change in treatment other than close monitoring. (6) Do not resuscitate discussion Conclusion/Plan: I explained to the patient that we discuss resuscitative status with almost all patients in the hospital. Is a formality and I asked him what he would like do ne if his heart were to stop, or any were to stop breathing. He says that he does not want to be resuscitated. At 83 he feels like he has had a very good life, and has been very blessed with his and children. He feels like he is already deteriorating, and is already dreading being a burden to his and family. He imagines what it would be like to be resuscitated did not have a good outcome but still be alive. He does not want that. As such she is asked me to make him a DO NOT RESUSCITATE for CPR or intubation - Lab Results Lab results reviewed: Yes Fish Bones: 03/20/23 09:32 03/20/23 09:32 - EKG Results EKG Interpreted Independently: No EKG Comparison: Unchanged from prior EKG
[2023-03-20] MEDS: SODIUM CHLORIDE FLUSH 0.9% 10 ML SYRINGE IVP SCH (20:10)
[2023-03-20] MEDS: ACETAMINOPHEN 325 MG TABLET PO PRN (20:26)
[2023-03-21] MEDS: SODIUM CHLORIDE FLUSH 0.9% 10 ML SYRINGE IVP SCH ×2 (00:46→09:18)
[2023-03-21] MEDS: ACETAMINOPHEN 325 MG TABLET PO PRN ×2 (00:49→06:05)
[2023-03-21] MEDS ORDERED: AMIODARONE 200 MG TABLET PO SCH (09:00)
[2023-03-21] MEDS ORDERED: MULTIVITAMIN W/MINERALS TABLET PO SCH (09:00)
[2023-03-21] MEDS ORDERED: FLUoxetine 10 MG CAPSULE PO SCH (09:00)
--- NOTE | 2023-03-21 09:52 | PHARMACY PROGRESS NOTE ---
- Best Possible Medication History Admit Date and Time: 03/20/23 1046 Processed by: Pharmacy Medication History completed: Yes Patient Interview: Completed Secondary Source(s): Spouse/Significant other (GOT MED LIST FROM ), Pharmacy records As the person ultimately responsible for medication therapy, providers are able to order a medication from an existing home medication list in [facility] via the "Reconcile Routine" prior to Confirmation of that medication by operations support professionals. Such practice is discouraged except when the physician, in their clinical judgment, deems that a medical need exists for a medication without regard to previous use.
[2023-03-21] MEDS ORDERED: polyethylene glycoL 3350 17 GM PACKET PO SCH (10:00)
--- NOTE | 2023-03-21 14:27 | Discharge Plan ---
Discharge Plan Problem Reviewed?: Yes Disposition: Home, Self Care Condition: Stable Diet: Low Sodium Activity Restrictions: Activity as Tolerated Shower Restrictions: No Driving Restrictions: Yes (no driving) Assistance Devices: Walker Health Concerns: You have a significant past medical history of memory loss, aortic stenosis with a transaortic valve repair in January 2020, intermittent atrial fibrillation, and a painful Mustafa's cyst in the liver and left knee. You also have fairly symptomatic symptoms of urgency and urinary frequency with lots of getting up to urinate at night because of a large prostate. You take Flomax for that. You were feeling well and had no new change in status when you had gotten up from your walker chair and then passed out. There was no warning. You had felt "funny" for couple of minutes before he got up but no other symptoms. We evaluated you for heart attack, stroke, congestive heart failure and found no evidence of those problems. We evaluated you for severe anemia. That was not a problem. Blood pressure appears stable. When you are laying down blood pressure is 155/86. When you are sitting blood pressure is 146/83. And when you were standing blood pressure is 137/74. Your heart rate stays very stable with this at 60, 65, and 61 respectively. So we do not think that it is a blood pressure problems that caused you to pass out. To make sure that the valve in your aortic valve was working correctly, we did an echocardiogram. We do have a preliminary report that your valve repair is working well. Please share the preliminary results with your primary care provider. After being here overnight. You had no further episodes and you had no rhythm problems for your heart. Plan of Treatment: Please see your primary care provider or screen tacker in follow-up in the next 1 to 2 weeks. We have not changed any of your medications at this time. The only thing that we would asked you to discuss with your doctors is your recent falls. You have macular degeneration, peripheral neuropathy, and poor eyesight. He fell in September of last year, November of this year, and most recently in February of this year. It might be beneficial for you to stop your blood thinner. But only you and your screen tacker can decide this. Please discuss that with him at your next visit. Part of your problems with walking is the pain behind her left knee because of the Mustafa's cyst. There is a compounded cream that might be able to be used for this pain. Please see your primary care provider and see if they would be able to prescribe this cream for you. The cream is: Ketoprofen cream, baclofen cream, lidocaine cream, with DMSO. It is a compounded formula that can be compounded at [facility] in [place]. You need 1/8 of a teaspoon to be put on your skin and spread out evenly 2 or 3 times a day for pain relief. Care Goals: You would like to go home, and return to your usual activities. Other than driving, we are not restricting anything new. Your daughter asked if it was okay for you to go on vacation with them in [place] this coming summer and I heartily endorse you going on vacation with your family. Assessment: Patient has word finding problems, occasional memory deficits. But and maria teresa alamo at the bedside are strong advocates. This document was made in part using voice recognition software. While efforts are made to proofread this document, sound alike and grammatical errors may occur. No Smoking: If you smoke, Please STOP! Call for help.
--- NOTE | 2023-03-21 14:43 | DISCHARGE SUMMARY ---
Discharge Summary Admit Date: 03/20/23 Discharge Date: 03/21/23 Discharging Provider: Blanca Leary MD Primary Care Provider: Alex Luna MD [phone]/ Jeremie Jeong MD Code Status: Do Not Attempt Resuscitation Condition at Discharge: Stable Discharge Disposition: 01 Home, Self Care - DIAGNOSES Discharge Diagnoses with Status of Each Condition: 1. Syncope 2. Orthostatic hypotension 3. Memory loss 4. Mustafa's cyst 5. At risk for falls 6. Chronic hyponatremia 7. DO NOT RESUSCITATE status 8. Chronic anticoagulation 9. History of aortic valve repair - HPI History of Present Illness: This is a gentleman who has chronic atrial fibrillation. However it is intermittent. Over the years sometimes is present on EKG, sometimes it does not. He is on anticoagulation for this. He also has a history of aortic valve repair. He had presented with congestive heart failure, significant dyspnea on exertion, as well as syncope in the prepandemic time. He underwent a TAVR in January 2020 and his says that they got" under the wire" before everything shut down. He is shortness of breath and congestive heart failure symptoms resolved. He last saw his medical lab tech instructor a few weeks ago and he is due to get a routine echocardiogram in the near future. His main problem has been a gradually progressive dementia as well as a gradually progressive problem with balance and falls. He is losing recollection of correct sequence of events. Forgetting words. Forgetting people. It is getting harder for him to keep his thoughts together. There are good days and bad days. 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 Its been very wearing on his . He has been evaluated by Dr. Payne at [facility]. He does have peripheral ne uropathy of unknown etiology. Macular degeneration. And deafness. They feel that those 3 things are the reason he is falling more and more. As for his memory loss, they have not given him a diagnosis of Alzheimer's. Right now they are wondering if it is just memory loss of aging. But his feels that they are not paying attention and that his memory loss is getting progressively more severe. He fell in September last year, November of this year, and most recently 3 weeks ago. He really bruised his rib cage and he has not been able to sleep in bed. He has been sleeping in a recliner. He does not really remember the passing out from before. He just remembers that happened. concurs. He has had no new events. No new medication changes. He has not been acutely ill. She make sure that he has adequate fluid intake and food intake and that has not changed. There has not been any chest pain, cough, congestion. Rather any chest pain he has, has his been from the rib cage being severely bruised with his last fall. He has symptoms of urinary retention, but that is unchanged. There is been no new dysuria or urgency. No cloudy urine. No hematuria. Bowels are unchanged. This morning he got up as usual. He had been sitting and got up with his walker to walk into the kitchen. She immediately noticed that he was walking abnormally was almost a "stiffness" to his gait and a lack of focus to his gaze. He went stiff enough that he then struck the back of his head. The patient remembers that he just did not feel well for a couple of minutes as he sat there, before he got up, and then he got up and that is the last thing he remembers. He is on Eliquis for the A-fib. He denies chest pain, palpitations. No flushing, nausea, and is very vague about why he did not feel well. In the emergency room temperature was 36.3. Heart rate 52. Blood pressure 163/89. Respirations 16 and 100% on room air. He was described as alert and oriented x3. No distress. Physical exam was essentially benign other than that of an elderly gentleman. He had clear lungs, and rib tape in the right lateral lower chest. But abdomen was benign, and neurological exam was normal. I reviewed his studies. His EKG had normal sinus rhythm. CBC was normal except for a mildly lowered white cell count at 4.6. Sodium was 128, potassium 3.6, troponin was 6.3. Head CT had no acute intracranial abnormality. There were no fractures or bleeds. Cervical spine CT was reviewed and I see that there is no acute fracture or traumatic subluxation of the cervical spine. Same for the chest x-ray. In reviewing the chest x-ray there is no acute radiologic abnormality. The ER provider, Dr. Villarreal, asked if I could please evaluate the patient for admission. 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) Respiratory: reports: None Neuro: reports: Peripheral neuropathy, Other (gait ataxia w falls, uses walker (peripheral neuropathy, macular degen, spinal stenosis)) Endocrine/Autoimmune: reports: None GI: reports: Colon polyps (on scope 2008, fu scope 2013), Hepatitis (chronic LFT elevation, no infection), Other (High grade SBO 11/2020, resolved w/o surgery) : reports: Benign prostate hypertrophy (LUTS present w freg nocturia), Retention, Nocturia, Frequency HEENT: reports: Macular degeneration, Chronic hearing loss (deaf) Psych: reports: None Musculoskeletal: reports: Osteoarthritis (knee injection 02/2022 w Jeong's office), Chronic back pain, Other (olecranon bursitis) Derm: reports: Other (basal cell ca and AK) MRSA Hx?: No - Past Surgical History General: reports: Cholecystectomy, Appendectomy, Colonoscopy Ortho: reports: Rotator cuff repair Cardiovascular: reports: Valve replacement, AAA, Other HEENT: reports: Cataracts (both done 2016) Derm: reports: Skin cancer surgery (basal cell ca removal) - CONSULTS | PROCEDURES Procedures: Echocardiogram has systolic function of 55 to 60%. Right ventricle systolic function normal. Normally functioning prosthetic valve in the aortic position with a peak velocity of less than 3 meters per second. Mild to moderate mitral regurg. Troponin is 6.3 (normal) - HOSPITAL COURSE Hospital Course: The patient was placed in overnight observation for telemetry. There were no arrhythmias. Echocardiogram was done and as above and shows a well-functioning valve. Orthostatic vital signs were done before discharge. Supine blood pressure 168/88. Sitting blood pressure 158/88. Standing blood pressure 137/82. Pulses with that were 62, 62, 74 respectively. He had no further syncopal events. Was asymptomatic. I gave a preliminary copy of the echo to his so that she could share that with his medical lab tech instructor, Dr. Alex Luna at [facility]. The patient is also wanting symptomatic relief of the knee pain because of his Mustafa's cyst. I recommended a compounded cream with ketoprofen/lidocaine/baclofen/DMSO. I asked him to see his primary care juniori evert in follow-up and see if he can get that compounded cream called into [facility]. I recommended that he be seen by his primary care provider in the next 1 to 2 weeks. His medical lab tech instructor in the next 1 to 2 weeks. I am also recommending that there might be some advance care planning conversations held around his dementia. It is an increasingly emotional issue for his and daughters as they watch him deteriorate. They feel that he is doctors were not listening to them about how severe his memory loss is. They just want to know what type of dementia and if it is treatable. I discharged this aye [place] man is alert, oriented. Tall and thin at 5 foot 10 inches tall, 70.3 kg. Follows commands. Moderately deaf. Vision is impaired because of macular degeneration. Slightly ataxic any furniture surface because he has moderate peripheral neuropathy. Neck is supple. Lungs are clear. Systolic ejection murmur is present. He does have a history of A-fib but currently regular rate and rhythm. Abdomen soft, nontender. Extremities with no edema. - ALLERGIES Allergies/Adverse Reactions: Allergies Allergy/AdvReac Type Severity Reaction Status Date / Time Sulfa (Sulfonamide Allergy Unknown Verified 03/20/23 08:57 Antibiotics) - MEDICATIONS Home Medications: Ambulatory Orders Medication Instructions Recorded Confirmed Atorvastatin Calcium [Lipitor] 20 mg PO DAILY 07/10/14 03/20/23 Amiodarone [Pacerone] 100 mg PO DAILY 11/14/20 03/20/23 Apixaban [Eliquis] 5 mg PO BID 11/14/20 03/20/23 FLUoxetine [PROzac] 10 mg PO DAILY 11/14/20 03/20/23 Tamsulosin [Flomax] 0.4 mg PO QPM 11/14/20 03/20/23 Cholecalciferol [Vitamin D3] 1 cap PO QPM 12/23/20 03/20/23 Glucosamine Sulfate 1 cap PO QPM 12/23/20 03/20/23 [place]-3S/Dha/Epa/Fish Oil [Fish 1 cap PO QPM 12/23/20 03/20/23 Oil 1,200 mg Softgel] Alpha Lipoic Acid 600 mg PO DAILY 03/20/23 03/20/23 Multivit-Min/Ferrous Sulfate [One 1 each PO DAILY 03/20/23 03/20/23 Daily Multivit-Mineral Tab] - LABS Result Diagrams: 03/20/23 09:32 03/20/23 09:32
[2023-03-21 17:32] VITALS: BP 159/94
[2023-03-21] MEDS ORDERED: TAMSULOSIN 0.4 MG CAPSULE PO SCH (21:00)
[2023-03-21] MEDS ORDERED: ATORVASTATIN 10 MG TABLET PO SCH (21:00)
[2023-03-21] MEDS ORDERED: CHOLECALCIFEROL 5,000 UNIT CAPSULE PO SCH (21:00)
== END 2023-03-21 16:31 | disposition home or self-care (01) ==
LOC: EDUNIT# → ED 08:41 → MS2 10:46
PROVIDERS: ADMIT Specialist; ATTEND Specialist
DX: I95.1 Orthostatic hypotension (principal); R41.3 Other amnesia; M71.22 Synovial cyst of popliteal space [Baker], left knee; Z91.81 History of falling; E87.1 Hypo-osmolality and hyponatremia; S09.90XA Unspecified injury of head, initial encounter; W19.XXXA Unspecified fall, initial encounter; Y92.009 Unspecified place in unspecified non-institutional (private) residence as the place of occurrence of the external cause; Z79.01 Long term (current) use of anticoagulants; Z95.2 Presence of prosthetic heart valve; I48.20 Chronic atrial fibrillation, unspecified; I11.0 Hypertensive heart disease with heart failure; I50.9 Heart failure, unspecified; F03.90 Unspecified dementia, unspecified severity, without behavioral disturbance, psychotic disturbance, mood disturbance, and anxiety; G62.9 Polyneuropathy, unspecified; H35.30 Unspecified macular degeneration; H91.90 Unspecified hearing loss, unspecified ear; Z66 Do not resuscitate; I25.10 Atherosclerotic heart disease of native coronary artery without angina pectoris; I73.9 Peripheral vascular disease, unspecified; N40.1 Benign prostatic hyperplasia with lower urinary tract symptoms; R33.8 Other retention of urine; R35.0 Frequency of micturition; R35.1 Nocturia; Z87.891 Personal history of nicotine dependence; R27.0 Ataxia, unspecified
CPT/HCPCS: 36415; 70450; 71045; 72125; 80053; 83690; 84484; 85025; 93005; 93306; 99284; 99285; A9270; G0378

== ENCOUNTER 2023-05-20 08:00 | Outpatient (CLI) | payer MEDICARE, OTHER ==
--- NOTE | 2023-05-20 13:45 | XRAY Report ---
PROCEDURE: Elbow 3 View RT INDICATIONS: RIGHT ELBOW PAIN TECHNIQUE: 3 views of the elbow were acquired. COMPARISON: None. FINDINGS: Bones: No acute fractures or dislocations. No suspicious bony lesions. Soft tissues: No anterior effusion. No suspicious soft tissue calcifications or masses. Moderate f ocal posterior right elbow soft tissue swelling. IMPRESSION: Right elbow without acute fracture or dislocation. Moderate focal posterior right elbow soft tissue swelling which may represent olecranon bursitis. Reviewed by: Daniel Pyle MD on 05/20/2023 12:43 PM RITA Approved by: Daniel Pyle MD on 05/20/2023 12:43 PM RITA Station ID: [id number]
== END 2023-05-20 23:59 | disposition home or self-care (01) ==
LOC: DI.S 08:00
PROVIDERS: ATTEND Physician Assistant
DX: M25.521 Pain in right elbow (principal); R93.6 Abnormal findings on diagnostic imaging of limbs; R93.89 Abnormal findings on diagnostic imaging of other specified body structures

== ENCOUNTER 2023-06-03 08:36 | Outpatient (CLI) | payer MEDICARE, OTHER | END 2023-06-03 23:59 | disposition critical access hospital (66) | LOC: EMS 08:36 | DX: R53.83 Other fatigue (principal); R03.1 Nonspecific low blood-pressure reading; R00.1 Bradycardia, unspecified | CPT/HCPCS: A0425; A0427 ==

== ENCOUNTER 2023-06-03 09:05 | Emergency (ER) | payer MEDICARE, OTHER ==
--- NOTE | 2023-06-03 09:31 | ED Physician Documentation ---
PD HPI SYNCOPE - Stated complaint Stated Complaint: HYPOTENSION/FATIGUE - Chief complaint Chief Complaint: Neuro - History obtained from History obtained from: Patient, EMS - History of Present Illness Timing - onset: How many hours ago (1) Duration: Minutes (he was up making tea, standing, and felt lightheaded/near syncope. No headache, chest pain, abd pain. No nausea. Called for his , who noted him pale. Called EMS. Pt sat/lay on floor but did not feel better. EMS arrived and noted SBP 80s, and improved with some fluid enroute. Pt feels normal here) Preceding symptoms: Light headed. No: Headache, Chest pain, Palpitations, Abdominal pain, Nausea / vomiting Contributing factors: No: Recent med change, Decreased PO intake, Noxious stimulae, Exertion Injury occurred: No: Fell, Head injury, Neck injury Treatment RIGGING UP MAN: Fluids Similar symptoms before: Has not had sx before Recently seen: Not recently seen Review of Systems Constitutional: denies: Fever, Chills Nose: denies: Rhinorrhea / runny nose, Congestion Throat: denies: Sore throat Respiratory: denies: Cough GI: denies: Nausea, Vomiting, Diarrhea, Bloody / black stool Neurologic: denies: Focal weakness, Numbness, Syncope, Altered mental status PD PAST MEDICAL HISTORY - Past Medical History Cardiovascular: Congestive heart failure, Hypertension, High cholesterol, Coronary artery disease (coronary angio 2008), Peripheral Vascular Disease (iliac stenosis, mesenteric stenosis), Atrial fibrillation, Valve disorder (TAVR 01/2020), Other (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) Respiratory: None Neuro: Peripheral neuropathy, Other (gait ataxia w falls, uses walker (peripheral neuropathy, macular degen, spinal stenosis)) Endocrine/Autoimmune: None GI: Colon polyps (on scope 2008, fu scope 2013), Hepatitis (chronic LFT elevation, no infection), Other (High grade SBO 11/2020, resolved w/o surgery) : Benign prostate hypertrophy (LUTS present w freg nocturia), Retention, Nocturia, Frequency HEENT: Macular degeneration, Chronic hearing loss (deaf) Psych: None Musculoskeletal: Osteoarthritis (knee injection 02/2022 w [facility]), Chronic back pain, Other (olecranon bursitis) Derm: Other (basal cell ca and AK) - Past Surgical History Past Surgical History: Yes General: Cholecystectomy, Appendectomy, Colonoscopy Ortho: Rotator cuff repair Cardiovascular: Valve replacement, AAA, Other HEENT: Cataracts (both done 2017) Derm: Skin cancer surgery (basal cell ca removal) - Present Medications Home Medications: Ambulatory Orders Medication Instructions Recorded Confirmed Atorvastatin Calcium [Lipitor] 20 mg PO DAILY 07/10/14 06/03/23 Amiodarone [Pacerone] 100 mg PO DAILY 11/14/20 06/03/23 Apixaban [Eliquis] 5 mg PO BID 11/14/20 06/03/23 FLUoxetine [PROzac] 10 mg PO DAILY 11/14/20 06/03/23 Tamsulosin [Flomax] 0.4 mg PO QPM 11/14/20 06/03/23 Cholecalciferol [Vitamin D3] 1 cap PO QPM 12/23/20 06/03/23 Glucosamine Sulfate 1 cap PO QPM 12/23/20 06/03/23 [place]-3S/Dha/Epa/Fish Oil [Fish 1 cap PO QPM 12/23/20 06/03/23 Oil 1,200 mg Softgel] Alpha Lipoic Acid 600 mg PO DAILY 03/20/23 06/03/23 Multivit-Min/Ferrous Sulfate [One 1 each PO DAILY 03/20/23 06/03/23 Daily Multivit-Mineral Tab] - Allergies Allergies/Adverse Reactions: Allergies Allergy/AdvReac Type Severity Reaction Status Date / Time Sulfa (Sulfonamide Allergy Unknown Verified 06/03/23 09:28 Antibiotics) - Social History Does the pt smoke?: No Smoking Status: Former smoker Does the pt drink ETOH?: Yes Does the pt have substance abuse?: No - Immunizations Immunizations are current?: Yes - POLST Patient has POLST: No POLST Status: DNR ( would like me to fill out a POLST form with her.) PD ED PE NORMAL - Vitals Vital signs reviewed: Yes (vitals normal here. ) - General General: Alert and oriented X 3, No acute distress, Well developed/nourished - Cardiac Cardiac: RRR, No murmur - Respiratory Respiratory: Clear bilaterally - Abdomen Abdomen: Soft, Non tender - Derm Derm: Normal color, Warm and dry - Extremities Extremities: No edema, No calf tenderness / cord - Neuro Neuro: Alert and oriented X 3, No motor deficit, No sensory deficit Results - Vitals Vitals: Oxygen O2 Source Room air - EKG (time done) 09:09 EKG releavant findings:: EKG personally interpreted by author of this note. Relevant findings are: Rate: Rate (enter#) (59) Rhythm: NSR [place]: Normal Intervals: Normal MA QRS: Normal Ischemia: Normal ST segments. No: ST elevation c/w ischemia, ST depression - Labs Labs: Laboratory Tests 06/03/23 06/03/23 09:29 09:29 WBC 5.1 RBC 3.94 L Hgb 11.3 L Hct 34.2 L MCV 86.8 MCH 28.7 MCHC 33.0 RDW 14.5 Plt Count 179 MPV 9.2 Neut # (Auto) 3.7 Lymph # (Auto) 0.5 L [place] # (Auto) 0.7 Eos # (Auto) 0.2 Baso # (Auto) 0.0 Absolute Nucleated RBC 0.00 Nucleated RBC % 0.0 Sodium 128 L Potassium 3.4 L Chloride 98 L Carbon Dioxide 24 Anion Gap 6.0 BUN 15 Creatinine 0.7 Estimated GFR (MDRD) 107 Glucose 94 Calcium 8.7 Magnesium 1.9 Total Bilirubin 0.8 AST 23 ALT 15 Alkaline Phosphatase 119 Troponin I High Sens 6.4 Total Protein 6.5 Albumin 3.8 Globulin 2.7 Albumin/Globulin Ratio 1.4 Lipase 17 PD Medical Decision Making - ED course Complexity details: reviewed results (ECG is normal. No newly unusual labs (stable mild hyponatremia and anemia). NO recent change in meds. No recent illness nor change in intake. No alcohol use. Unclear the cause of the trasient hypotension. ), considered differential, d/w patient Departure - Departure Disposition: 01 Home, Self Care Clinical Impression: Near syncope, Transient hypotension Condition: Stable Record reviewed to determine appropriate education?: Yes Instructions: ED Near Syncope Unkn Comments: Your basic blood tests here are normal with exception of a moderately low sodium but it is in the same range as it typically is. Your potassium is a little bit low as well. Add some potassium containing foods. No signs of irregular rhythm or heart attack. Your blood pressure is good here. It is unclear the cause of the episode of lightheadedness and low blood pressure. A few medications, tamsulosin can cause these types of symptoms. I would suggest holding your tamsulosin for 2 to 3 weeks and see if you have less symptoms. Otherwise contact your cardiology office. They may wish to have you wear a heart monitor that checks your rhythm over a week or 2 to ensure its not intermittently abnormal. Otherwise good hydration. Forms: PCP List Discharge Date/Time: 06/03/23 11:06
[2023-06-03 09:32] LABS: BASOPHILS % (AUTO) 0.2 %; EOSINOPHILS # (AUTO) 0.2 10^3/uL (0.0-0.7); EOSINOPHILS % (AUTO) 3.5 %; HCT - HEMATOCRIT 34.2 % (42.0-52.0); HGB - HEMOGLOBIN 11.3 g/dL (14.0-18.0); LYMPHOCYTES # (AUTO) 0.5 10^3/uL (1.5-3.5); LYMPHOCYTES % (AUTO) 9.6 %; MEAN CORPUSCULAR HEMOGLOBIN 28.7 pg (27.0-31.0); MEAN CORPUSCULAR VOLUME 86.8 fL (80.0-94.0); MEAN PLATELET VOLUME 9.2 fL (7.4-11.4); MONOCYTES # (AUTO) 0.7 10^3/uL (0.0-1.0); MONOCYTES % (AUTO) 13.2 %; NEUTROPHILS # (AUTO) 3.7 10^3/uL (1.5-6.6); NEUTROPHILS % (AUTO) 72.9 %; PLT - PLATELET COUNT 179 10^3/uL (130-450); RED BLOOD COUNT 3.94 10^6/uL (4.70-6.10); RED CELL DISTRIBUTION WIDTH 14.5 % (12.0-15.0); WHITE BLOOD COUNT 5.1 x10^3/uL (4.8-10.8)
[2023-06-03 09:59] LABS: ALBUMIN 3.8 g/dL (3.2-5.5); ALBUMIN/GLOBULIN RATIO 1.4 (1.0-2.2); BILIRUBIN,TOTAL 0.8 mg/dL (0.2-1.0); CALCIUM 8.7 mg/dL (8.5-10.3); CREATININE 0.7 mg/dL (0.6-1.3); MAGNESIUM 1.9 mg/dL (1.7-2.3); POTASSIUM 3.4 mmol/L (3.5-4.5); TOTAL PROTEIN 6.5 g/dL (6.4-8.9)
--- NOTE | 2023-06-03 10:00 | XRAY Report ---
PROCEDURE: Chest 1 View X-Ray INDICATIONS: Chest Pain TECHNIQUE: One view of the chest was acquired. COMPARISON: None. FINDINGS: Surgical changes and devices: Status post aortic valve repair. Cardiac monitoring device on the left. Lungs and pleura: No pleural effusions or pneumothorax. Lungs are clear. Mediastinum: Mediastinal contours appear normal. Heart size is normal. Bones and chest wall: No suspicious bony lesions. Overlying soft tissues appear unremarkable. IMPRESSION: No acute cardiopulmonary process. Reviewed by: Diogo Granger on 06/03/2023 9:59 AM PDT Approved by: Diogo Granger on 06/03/2023 9:59 AM PDT Station ID: [id number]
[2023-06-03 10:03] LABS: TROPONIN I HIGH SENSITIVITY 6.4 ng/L (2.3-19.7)
--- OUTSIDE RECORDS SUMMARY | 2023-06-03 10:26 | EXTERNAL MEDICAL SUMMARY RPT | Continuity of Care Document ---
Author Name Unknown Address [address] [place] [address] Phone Organization [facility] Address [address] [place] [address] Phone Care Team Providers Care Tree Driller Name Role Phone Unavailable Unavailable Unavailable Yousif Simeon, Cb Unavailable Unavailable Wu Simeon, Emily Unavailable Unavailable Geo Patient Registrar, Kari Unavailable Unavailable Matt Patient Registrar Iii, Rosa Unavailab le Unavailable Front Office, [facility] Unavailable Un available Medications date description facility 2023-05-20 00:00 [facility]in [facility] 2023-05-20 00:00 cephalexin [facility] 2023-03-13 00:00 furosemide [facility] 2023-03-16 00:00 furosemide [facility] 2023-05-20 00:00 furosemide [facility] 2023-05-20 00:00 furosemide [facility] 2023-05-22 00:00 furosemide [facility] 2023-05-23 00:00 furosemide [facility] 2023-03-13 00:00 potassium chloride [facility] 2023-03-16 00:00 potassium chloride [facility] 2023-05-20 00:00 potassium chloride [facility] 2023-05-20 00:00 potassium chloride [facility] 2023-05-22 00:00 potassium chloride [facility] 2023-05-23 00:00 potassium chloride [facility] 2023-05-20 00:00 cephalexin [facility] [place] 2023-05-20 00:00 cephalexin [facility] 2023-05-20 00:00 cephalexin [facility] 2023-05-20 00:00 cephalexin [facility] 2023-05-20 00:00 cephalexin [facility] 2023-05-20 00:00 cephalexin [facility] 2023-03-13 00:00 furosemide [facility] 2023-03-16 00:00 furosemide [facility] 2023-05-20 00:00 furosemide [facility] 2023-05-20 00:00 furosemide [facility] 2023-05-22 00:00 furosemide [facility] [place] 2023-05-23 00:00 furosemide [facility] 2023-03-13 00:00 potassium chloride [facility] 2023-03-16 00:00 potassium chloride [facility] 2023-05-20 00:00 potassium chloride [facility] [place] 2023-05-20 00:00 potassium chloride [facility] [place] 2023-05-22 00:00 potassium chloride [facility] [place] 2023-05-23 00:00 potassium chloride [facility] [place] 2023-03-13 00:00 furosemide [facility] [place] 2023-03-16 00:00 furosemide [facility] [place] 2023-05-20 00:00 furosemide [facility] [place] 2023-05-20 00:00 furosemide [facility] [place] 2023-05-22 00:00 furosemide [facility] [place] 2023-05-23 00:00 furosemide [facility] [place] 2023-03-13 00:00 potassium chloride [facility] [place] 2023-03-16 00:00 potassium chloride [facility] [place] 2023-05-20 00:00 potassium chloride [facility] [place] 2023-05-20 00:00 potassium chloride [facility] [place] 2023-05-22 00:00 potassium chloride [facility] [place] 2023-05-23 00:00 potassium chloride [facility] [place] 2023-03-13 00:00 potassium chloride [facility] [place] 2023-03-16 00:00 potassium chloride [facility] [place] 2023-05-20 00:00 potassium chloride [facility] [place] 2023-05-20 00:00 potassium chloride [facility] [place] 2023-05-22 00:00 potassium chloride [facility] [place] 2023-05-23 00:00 potassium chloride [facility] [place] 2023-03-13 00:00 furosemide [facility] [place] 2023-03-16 00:00 furosemide [facility] [place] 2023-05-20 00:00 furosemide [facility] [place] 2023-05-20 00:00 furosemide [facility] [place] 2023-05-22 00:00 furosemide [facility] [place] 2023-05-23 00:00 furosemide [facility] date description facility 2023-03-13 00:00 Closed fracture of m ultiple right ribs [facility] [place] 2023-03-13 00:00 Closed fracture of m ultiple right ribs [facility] [place] 2023-03-13 00:00 Closed fracture of m ultiple right ribs [facility] 2023-03-13 00:00 Closed fracture of m ultiple right ribs [facility] 2023-03-13 00:00 Multiple fractures o f ribs, right side, initial encounter for closed fracture [facility] 2023-03-13 00:00 Multiple fractures o f ribs, right side, initial encounter for closed fracture [facility] 2023-03-13 00:00 Multiple fractures o f ribs, right side, initial encounter for closed fracture [facility] 2023-03-13 00:00 Multiple fractures o f ribs, right side, initial encounter for closed fracture [facility] 2023-05-20 00:00 Contusion of right elbow [facility] 2023-05-20 00:00 Contusion of right elbow [facility] 2023-05-20 00:00 Pain in joint involving upper a rm [facility] 2023-05-20 00:00 Pain in joint involving upper a rm [facility] 2023-05-20 00:00 Pain in elbow [facility] 2023-05-20 00:00 Pain in elbow [facility] 2023-05-20 00:00 Contusion of elbow [facility] 2023-05-20 00:00 Contusion of elbow [facility] 2023-05-20 00:00 Pain in right elbow [facility] 2023-05-20 00:00 Pain in right elbow [facility] 2023-05-20 00:00 Contusion of right e lbow, initial encounter [facility] 2023-05-20 00:00 Contusion of right e lbow, initial encounter [facility] Procedures date description facility 2023-03-13 00:00 Visit Code Hold [facility] [place] 2023-03-13 00:00 Visit Code Hold [facility] 2023-03-13 00:00 Visit Code Hold [facility] 2023-03-13 00:00 Visit Code Hold [facility] [place] 2023-05-20 00:00 Visit Code Hold [facility] [place] 2023-05-20 00:00 Visit Code Hold [facility] Social History date description facility 2023-03-13 00:00 Former smoker [facility] [place] 2023-03-13 00:00 Former smoker [facility] [place] 2023-03-13 00:00 Former smoker [facility] [place] 2023-03-13 00:00 Former smoker [facility] [place] 2023-05-20 00:00 Former smoker [facility] [place] 2023-05-20 00:00 Former smoker [facility] [place] Vital Signs date measurement value units 2023-03-13 00:00 BMI 22.81 kg/m2 2023-03-13 00:00 BP_diastolic 87 mmHg 2023-03-13 00:00 BP_systolic 160 mmHg 2023-03-13 00:00 heart_rate 56 /min 2023-03-13 00:00 height_metric 175.9 cm 2023-03-13 00:00 height_standard 69.25 in 2023-03-13 00:00 respiration_rate 16 /min 2023-03-13 00:00 temperature_metric 36.11 C 2023-03-13 00:00 temperature_standard 97 F 2023-03-13 00:00 weight_metric 70.31 kg 2023-03-13 00:00 weight_standard 155 lb 2023-05-20 00:00 BMI 23.31 kg/m2 2023-05-20 00:00 BP_diastolic 92 mmHg 2023-05-20 00:00 BP_systolic 166 mmHg 2023-05-20 00:00 heart_rate 67 /min 2023-05-20 00:00 height_metric 175.9 cm 2023-05-20 00:00 height_standard 69.25 in 2023-05-20 00:00 respiration_rate 17 /min 2023-05-20 00:00 temperature_metric 36.5 C 2023-05-20 00:00 temperature_standard 97.7 F 2023-05-20 00:00 weight_metric 71.85 kg 2023-05-20 00:00 weight_standard 158.4 lb
[2023-06-03 11:05] VITALS: BP 159/75
== END 2023-06-03 11:06 | disposition home or self-care (01) ==
LOC: EDUNIT# → ED 09:05
DX: R55 Syncope and collapse (principal); I95.89 Other hypotension; E87.6 Hypokalemia; Z87.891 Personal history of nicotine dependence
CPT/HCPCS: 36415; 80053; 83690; 83735; 84484; 85025; 93005; 99283; 99284

== ENCOUNTER 2023-08-14 09:43 | Outpatient (CLI) | payer MEDICARE, OTHER | END 2023-08-14 09:44 | disposition critical access hospital (66) | LOC: EMS 09:43 | DX: M54.50 Low back pain, unspecified (principal); R29.898 Other symptoms and signs involving the musculoskeletal system; R53.1 Weakness; W01.198A Fall on same level from slipping, tripping and stumbling with subsequent striking against other object, initial encounter; Y92.000 Kitchen of unspecified non-institutional (private) residence as the place of occurrence of the external cause | CPT/HCPCS: A0425; A0429 ==

== ENCOUNTER 2023-08-14 10:17 | Emergency (ER) | payer MEDICARE, OTHER ==
[2023-08-14 10:31] VITALS: O2SAT 94
[2023-08-14] MEDS ORDERED: KETOROLAC 15 MG/ML VIAL IVP STA (10:33)
[2023-08-14] MEDS ORDERED: SODIUM CHLORIDE 0.9% 500 ML IV STA (10:34)
--- NOTE | 2023-08-14 10:35 | ED Physician Documentation ---
PD HPI Fall - Stated complaint Stated Complaint: GLF - Chief complaint Chief Complaint: Trauma Hd/Nk - History obtained from History obtained from: Patient, EMS (Medics noted pt BP to be low in the 90s systolic initially, improved enroute with some IV fluids.) - History of Present Illness Mechanism of injury: Lost balance Fall distance: Standing position Where injury occurred: Home Timing - onset: Today (he says he has fallen few times in the past several days, feeling off balance and weaker. No LOC/syncope.), Last night (he states he felt lightheaded and off balance while standing in kitchen last night. He did not have his walker as it does not maneuver there well. Struck head on oven. No LOC. This morning having feeling kightheaded without syncope nor fall again.) Injury(ies) location: Head (right occiput), Neck (lower neck pain to shoulders), Back (left gluteal area with local swelling. Not hurting in spine itself.). No: Chest, Abdomen Associated symptoms: AMS (feeeling lightheaded this morning.). 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), Other (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) Respiratory: None Neuro: Peripheral neuropathy, Other (gait ataxia w falls, uses walker (periphe ral neuropathy, macular degen, spinal stenosis)) Endocrine/Autoimmune: None GI: Colon polyps (on scope 2008, fu scope 2013), Hepatitis (chronic LFT el evation, no infection), Other (High grade SBO 11/2020, resolved w/o surgery) : Benign prostate hypertrophy (LUTS present w freg nocturia), Retention, Nocturia, Frequency HEENT: Macular degeneration, Chronic hearing loss (deaf) Psych: None Musculoskeletal: Osteoarthritis (knee injection 02/2022 w [facility]), Chronic back pain, Other (olecranon bursitis) Derm: Other (basal cell ca and AK) - Past Surgical History Past Surgical History: Yes General: Cholecystectomy, Appendectomy, Colonoscopy Ortho: Rotator cuff repair Cardiovascular: Valve replacement, AAA, Other HEENT: Cataracts (both done 2016) Derm: Skin cancer surgery (basal cell ca removal) - Present Medications Home Medications: Ambulatory Orders Medication Instructions Recorded Confirmed Atorvastatin Calcium [Lipitor] 20 mg PO DAILY 07/10/14 06/03/23 Amiodarone [Pacerone] 100 mg PO DAILY 11/14/20 06/03/23 Apixaban [Eliquis] 5 mg PO BID 11/14/20 06/03/23 FLUoxetine [PROzac] 10 mg PO DAILY 11/14/20 06/03/23 Tamsulosin [Flomax] 0.4 mg PO QPM 11/14/20 06/03/23 Cholecalciferol [Vitamin D3] 1 cap PO QPM 12/23/20 06/03/23 Glucosamine Sulfate 1 cap PO QPM 12/23/20 06/03/23 [place]-3S/Dha/Epa/Fish Oil [Fish 1 cap PO QPM 12/23/20 06/03/23 Oil 1,200 mg Softgel] Alpha Lipoic Acid 600 mg PO DAILY 03/20/23 06/03/23 Multivit-Min/Ferrous Sulfate [One 1 each PO DAILY 03/20/23 06/03/23 Daily Multivit-Mineral Tab] - Allergies Allergies/Adverse Reactions: Allergies Allergy/AdvReac Type Severity Reaction Status Date / Time Sulfa (Sulfonamide Allergy Unknown Verified 08/14/23 10:21 Antibiotics) - Social History Does the pt smoke?: No Smoking Status: Former smoker Does the pt drink ETOH?: Yes Does the pt have substance abuse?: No - Immunizations Immunizations are current?: Yes - POLST Patient has POLST: No POLST Status: DNR ( would like me to fill out a POLST form with her.) PD ED PE NORMAL - Vitals Vital signs reviewed: Yes - General General: Alert and oriented X 3, No acute distress, Well developed/nourished - HEENT HEENT: PERRL, EOMI, Other (right occiput with some local tenderness/swelling. ) - Neck Neck: Supple, no meningeal sign, No bony TTP, No adenopathy - Cardiac Cardiac: RRR - Respiratory Respiratory: No respiratory distress, Clear bilaterally, Other (no chestwall tenderness. ) Results - Vitals Vitals: Oxygen O2 Source Room air - EKG (time done) 10:40 EKG releavant findings:: EKG personally interpreted by author of this note. Relevant findings are: Rate: Rate (enter#) (55) Rhythm: Sinus bradycardia QRS: Poor R wave progression Ischemia: Normal ST segments. No: ST elevation c/w ischemia, ST depression - Labs Labs: Laboratory Tests 08/14/23 08/14/23 10:29 10:29 WBC 6.3 RBC 4.34 L Hgb 12.4 L Hct 37.9 L MCV 87.3 MCH 28.6 MCHC 32.7 RDW 15.1 H Plt Count 157 MPV 9.7 Neut # (Auto) 5.0 Lymph # (Auto) 0.5 L [place] # (Auto) 0.5 Eos # (Auto) 0.2 Baso # (Auto) 0.0 Absolute Nucleated RBC 0.00 Nucleated RBC % 0.0 Sodium 134 L Potassium 3.6 Chloride 102 Carbon Dioxide 27 Anion Gap 5.0 L BUN 17 Creatinine 0.7 Estimated GFR (MDRD) 107 Glucose 100 Calcium 9.0 Magnesium 1.9 Total Bilirubin 0.7 AST 21 ALT 15 Alkaline Phosphatase 126 H Total Protein 6.4 Albumin 4.0 Globulin 2.4 Albumin/Globulin Ratio 1.7 Lipase 15 - Rads (name of study) head CT Relevant Findings:: Prelim report reviewed (no ICVH), EMP independent interpretation of test cervical CT Relevant Findings:: Prelim report reviewed (no fractures), EMP independent interpretation of test pelvic CT Relevant Findings:: Prelim report reviewed (no fractures nor hematoma. Noted is AAA at 5.7 cm, increased from 4.2 cm in 2020. No free fluid/bleeding. ), EMP independent interpretation of test PD Medical Decision Making - ED course Complexity details: reviewed old records (ECHO report 03/21/23 showing normal aortic prosthetic valve with low velocity, EF 55-60%, mild mitral regurg. ), reviewed results (head without ICH. Neck ct without fractures. Pelvic CT showing no fractures nor hematomas. Incidental AAA that has enlarged since 2020. Pt/ not aware of it at all. No signs of bleeding/free fluid. No abd pain. ), re- evaluated patient (still no chest nor abd pain nor tenderness. ), considered differential (unclear the casue of him off balance. He says has been increasing problem for month or more. Fell and struck head, on Eliquis. Will get CT. Had low BP this morning. No obvious cause. Not on BP meds. Is on Flomax residential. has some neck pain. Has left gluteal pain; get CT to eval for hematoma/fx.), d/w patient, d/w family (his ) ED course: Normal vitals here, in fact a bit hypertensive. Normal heart rhythm. Unclear cause of lightheaded this morning. Fall last evening sounds like balance problem. He says has been getting worse over months. Gluteal pain without pelvic fracture nor hematoma. Soft tissue injury. Noted is AAA that is now of wize for consultantion and urged the pt/ to get f/u for this. Departure - Departure Disposition: 01 Home, Self Care Clinical Impression: Near syncope, Fall, Anticoagulant long-term use, Contusion, buttock, AAA (abdominal aortic aneurysm) Condition: Stable Record reviewed to determine appropriate education?: Yes Instructions: ED Near Syncope Unkn Follow-Up: JESSICA JURADO ARNP [Primary Care Provider] - Comments: Your basic blood tests are good here. We did CT scan of your head and neck due to the fall and being on blood thinners. We did do a CT scan of your pelvis because of the injury to the left buttock. No signs of fractures noted in the pelvis. No fractures in the neck and no bleeding in the head. Incidental finding on the pelvic CT was in the lower abdomen they see the presence of a aneurysm which is a dilatation of the aortic vessel in the abdomen. This has been dilated some it on a CT scan from 2020 and it has increased in size to now being where you would want to have evaluation and discussion with the vascular surgeon to see if there are any intervention is needed as the risk of potential rupture increases as the size increases. Regarding the weakness and fall episode, not clear the cause of this. Consideration could be intermittent irregular heart rhythms as you had had history of it in the past. Your current EKG shows a normal rhythm and your blood pressure is good. 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 Return to the ER as needed. Otherwise regular diet fluids and activity. Forms: PCP List Discharge Date/Time: 08/14/23 13:27
[2023-08-14 10:46] LABS: BASOPHILS % (AUTO) 0.2 %; EOSINOPHILS # (AUTO) 0.2 10^3/uL (0.0-0.7); EOSINOPHILS % (AUTO) 2.6 %; HCT - HEMATOCRIT 37.9 % (42.0-52.0); HGB - HEMOGLOBIN 12.4 g/dL (14.0-18.0); LYMPHOCYTES # (AUTO) 0.5 10^3/uL (1.5-3.5); LYMPHOCYTES % (AUTO) 8.1 %; MEAN CORPUSCULAR HEMOGLOBIN 28.6 pg (27.0-31.0); MEAN CORPUSCULAR HGB CONC 32.7 g/dL (32.0-36.0); MEAN CORPUSCULAR VOLUME 87.3 fL (80.0-94.0); MEAN PLATELET VOLUME 9.7 fL (7.4-11.4); MONOCYTES # (AUTO) 0.5 10^3/uL (0.0-1.0); MONOCYTES % (AUTO) 8.5 %; NEUTROPHILS % (AUTO) 80.1 %; PLT - PLATELET COUNT 157 10^3/uL (130-450); RED BLOOD COUNT 4.34 10^6/uL (4.70-6.10); RED CELL DISTRIBUTION WIDTH 15.1 % (12.0-15.0); WHITE BLOOD COUNT 6.3 x10^3/uL (4.8-10.8)
[2023-08-14 10:57] LABS: ALBUMIN/GLOBULIN RATIO 1.7 (1.0-2.2); BILIRUBIN,TOTAL 0.7 mg/dL (0.2-1.0); CREATININE 0.7 mg/dL (0.6-1.3); MAGNESIUM 1.9 mg/dL (1.7-2.3); POTASSIUM 3.6 mmol/L (3.5-4.5); TOTAL PROTEIN 6.4 g/dL (6.4-8.9)
[2023-08-14 10:59] VITALS: BP 161/98
--- NOTE | 2023-08-14 12:07 | CT Report ---
PROCEDURE: CERVICAL SPINE WO INDICATIONS: fall - pain head/neck/gluteal TECHNIQUE: Noncontrast 3 mm thick sections acquired from the skull base to the T4 level. Sagittal and coronal r eformats were then constructed. For radiation dose reduction, the following was used: automated exp osure control, adjustment of mA and/or kV according to patient size. COMPARISON: None. FINDINGS: Image quality: Excellent. Bones: No fractures or dislocations. Visualized superior ribs are intact. Again noted is diffuse c ervical spondylitic change with multilevel facet arthropathy, severe disc height loss and uncovertebr al joint hypertrophy at C5-C6 and C6-C7, and trace anterolisthesis of C5 on C6. There is multilevel b brice foraminal narrowing. Soft tissues: Prevertebral soft tissues are normal in thickness. No paravertebral hematomas. No ap ical pneumothoraces. There is some degree of aneurysmal dilatation of the distal aspect of the transv erse arch of the aorta, incompletely imaged. This structure measures approximately 3.7 cm in diameter . IMPRESSION: 1. No acute cervical fracture or dislocation. 2. Cervical spondylosis. 3. There is some degree of of aneurysmal dilatation of the distal transverse arch of the aorta. Reviewed by: Wm Johnson MD on 08/14/2023 12:05 PM PDT Approved by: Wm Johnson MD on 08/14/2023 12:05 PM PDT Station ID: [id number]
--- NOTE | 2023-08-14 12:09 | CT Report ---
PROCEDURE: HEAD WO INDICATIONS: fall - pain head, neck, gluteal TECHNIQUE: Noncontrast 4.5 mm thick angled axial sections acquired from the foramen magnum to the vertex. For r adiation dose reduction, the following was used: automated exposure control, adjustment of mA and/or kV according to patient size. COMPARISON: None. FINDINGS: Image quality: Excellent. CSF spaces: Basal cisterns are patent. No extra-axial fluid collections. Ventricles are normal in size and shape. Brain: No midline shift. No intracranial masses or hemorrhage. Dahl-white matter interface is norm al. There is age-related volume loss and moderate, age-appropriate small vessel ischemic change. The re is intracranial carotid and vertebral artery calcifications. Skull and face: Calvarium and visualized facial bones are intact, without suspicious lesions. Sinuses: Visualized sinuses and mastoids are clear. IMPRESSION: No acute intracranial pathology. Reviewed by: Wm Johnson MD on 08/14/2023 12:08 PM PDT Approved by: Wm Johnson MD on 08/14/2023 12:08 PM PDT Station ID: [id number]
--- OUTSIDE RECORDS SUMMARY | 2023-08-14 12:09 | EXTERNAL MEDICAL SUMMARY RPT | Continuity of Care Document ---
Author Name Unknown Address [address] [place] [address] Phone Organization [facility] Address [address] [place] [address] Phone Care Team Providers Care Elementary Teacher Name Role Phone Unavailable Unavailable Unavailable Yousif Simeon, Cb Unavailable Unavailable Shyann Musa Unavailable Unavailable Wu Simeon, Emily Unavailable Unavailable [place] Patient Registrar Ii, Kari Unavailab le Unavailable [place] Patient Registrar Ii, Kari Unavailab le Unavailable [place] Patient Registrar Iii, Rosa Unavailab le Unavailable Front Office, [facility] Walk[facility]In Unavailable Un available Medications date description facility 2023-05-20 00:00 [facility] [place] 2023-05-20 00:00 cephalexin [facility] [place] 2023-05-20 00:00 cephalexin [facility] [place] 2023-05-20 00:00 cephalexin [facility] [place] 2023-05-20 00:00 cephalexin [facility] [place] 2023-05-20 00:00 cephalexin [facility] [place] 2023-05-20 00:00 furosemide [facility] [place] 2023-05-20 00:00 furosemide [facility] [place] 2023-05-22 00:00 furosemide [facility] [place] 2023-05-23 00:00 furosemide [facility] 2023-07-25 00:00 furosemide [facility] [place] 2023-07-25 00:00 furosemide [facility] [place] 2023-07-26 00:00 furosemide [facility] [place] 2023-07-27 00:00 furosemide [facility] [place] 2023-07-27 00:00 furosemide [facility] [place] 2023-07-28 00:00 furosemide [facility] [place] 2023-05-20 00:00 potassium chloride [facility] [place] 2023-05-20 00:00 potassium chloride [facility] [place] 2023-05-22 00:00 potassium chloride [facility] [place] 2023-05-23 00:00 potassium chloride [facility] [place] 2023-07-25 00:00 potassium chloride [facility] [place] 2023-07-25 00:00 potassium chloride [facility] [place] 2023-07-26 00:00 potassium chloride [facility] [place] 2023-07-27 00:00 potassium chloride [facility] [place] 2023-07-27 00:00 potassium chloride [facility] [place] 2023-07-28 00:00 potassium chloride [facility] [place] 2023-07-25 00:00 prednisone [facility] [place] 2023-07-25 00:00 prednisone [facility] [place] 2023-07-25 00:00 prednisone [facility] [place] 2023-05-20 00:00 cephalexin [facility] [place] 2023-05-20 00:00 cephalexin [facility] [place] 2023-05-20 00:00 cephalexin [facility] [place] 2023-05-20 00:00 cephalexin [facility] [place] 2023-05-20 00:00 cephalexin [facility] [place] 2023-05-20 00:00 cephalexin [facility] [place] 2023-07-25 00:00 prednisone [facility] [place] 2023-07-25 00:00 prednisone [facility] [place] 2023-07-25 00:00 prednisone [facility] [place] 2023-07-25 00:00 benzonatate [facility] [place] 2023-07-25 00:00 benzonatate [facility] [place] 2023-07-25 00:00 benzonatate [facility] [place] 2023-07-25 00:00 prednisone [facility] [place] 2023-07-25 00:00 prednisone [facility] [place] 2023-07-25 00:00 prednisone [facility] [place] 2023-05-20 00:00 cephalexin [facility] [place] 2023-05-20 00:00 cephalexin [facility] [place] 2023-05-20 00:00 cephalexin [facility] [place] 2023-05-20 00:00 cephalexin [facility] [place] 2023-05-20 00:00 cephalexin [facility] [place] 2023-05-20 00:00 cephalexin [facility] [place] 2023-07-25 00:00 benzonatate [facility] [place] 2023-07-25 00:00 benzonatate [facility] [place] 2023-07-25 00:00 benzonatate [facility] [place] 2023-05-20 00:00 cephalexin [facility] [place] 2023-05-20 00:00 cephalexin [facility] [place] 2023-05-20 00:00 cephalexin [facility] [place] 2023-05-20 00:00 cephalexin [facility] [place] 2023-05-20 00:00 cephalexin [facility] [place] 2023-05-20 00:00 cephalexin [facility] [place] 2023-05-20 00:00 furosemide [facility] [place] 2023-05-20 00:00 furosemide [facility] [place] 2023-05-22 00:00 furosemide [facility] [place] 2023-05-23 00:00 furosemide [facility] [place] 2023-07-25 00:00 furosemide [facility] [place] 2023-07-25 00:00 furosemide [facility] [place] 2023-07-26 00:00 furosemide [facility] [place] 2023-07-27 00:00 furosemide [facility] [place] 2023-07-27 00:00 furosemide [facility] [place] 2023-07-28 00:00 furosemide [facility] [place] 2023-07-25 00:00 prednisone [facility] [place] 2023-07-25 00:00 prednisone [facility] [place] 2023-07-25 00:00 prednisone [facility] [place] 2023-05-20 00:00 potassium chloride [facility] [place] 2023-05-20 00:00 potassium chloride [facility] [place] 2023-05-22 00:00 potassium chloride [facility] [place] 2023-05-23 00:00 potassium chloride [facility] [place] 2023-07-25 00:00 potassium chloride [facility] [place] 2023-07-25 00:00 potassium chloride [facility] [place] 2023-07-26 00:00 potassium chloride [facility] [place] 2023-07-27 00:00 potassium chloride [facility] [place] 2023-07-27 00:00 potassium chloride [facility] [place] 2023-07-28 00:00 potassium chloride [facility] [place] 2023-05-20 00:00 furosemide [facility] [place] 2023-05-20 00:00 furosemide [facility] [place] 2023-05-22 00:00 furosemide [facility] [place] 2023-05-23 00:00 furosemide [facility] [place] 2023-07-25 00:00 furosemide [facility] [place] 2023-07-25 00:00 furosemide [facility] [place] 2023-07-26 00:00 furosemide [facility] [place] 2023-07-27 00:00 furosemide [facility] [place] 2023-07-27 00:00 furosemide [facility] [place] 2023-07-28 00:00 furosemide [facility] [place] 2023-07-25 00:00 benzonatate [facility] [place] 2023-07-25 00:00 benzonatate [facility] [place] 2023-07-25 00:00 benzonatate [facility] [place] 2023-05-20 00:00 potassium chloride [facility] [place] 2023-05-20 00:00 potassium chloride [facility] [place] 2023-05-22 00:00 potassium chloride [facility] [place] 2023-05-23 00:00 potassium chloride [facility] [place] 2023-07-25 00:00 potassium chloride [facility] [place] 2023-07-25 00:00 potassium chloride [facility] [place] 2023-07-26 00:00 potassium chloride [facility] [place] 2023-07-27 00:00 potassium chloride [facility] [place] 2023-07-27 00:00 potassium chloride [facility] [place] 2023-07-28 00:00 potassium chloride [facility] [place] 2023-07-25 00:00 benzonatate [facility] [place] 2023-07-25 00:00 benzonatate [facility] [place] 2023-07-25 00:00 benzonatate [facility] [place] 2023-05-20 00:00 potassium chloride [facility] [place] 2023-05-20 00:00 potassium chloride [facility] [place] 2023-05-22 00:00 potassium chloride [facility] [place] 2023-05-23 00:00 potassium chloride [facility] [place] 2023-07-25 00:00 potassium chloride [facility] [place] 2023-07-25 00:00 potassium chloride [facility] [place] 2023-07-26 00:00 potassium chloride [facility] [place] 2023-07-27 00:00 potassium chloride [facility] [place] 2023-07-27 00:00 potassium chloride [facility] [place] 2023-07-28 00:00 potassium chloride [facility] [place] 2023-05-20 00:00 furosemide [facility] [place] 2023-05-20 00:00 furosemide [facility] [place] 2023-05-22 00:00 furosemide [facility] [place] 2023-05-23 00:00 furosemide [facility] [place] 2023-07-25 00:00 furosemide [facility] [place] 2023-07-25 00:00 furosemide [facility] [place] 2023-07-26 00:00 furosemide [facility] [place] 2023-07-27 00:00 furosemide [facility] [place] 2023-07-27 00:00 furosemide [facility] [place] 2023-07-28 00:00 furosemide [facility] [place] Problems date description facility 2023-05-20 00:00 Contusion of right elbow Walk-[facility] [...] 2023-05-20 00:00 Contusion of elbow [facility] 2023-05-20 00:00 Contusion of elbow [facility] 2023-05-20 00:00 Contusion of elbow [facility] 2023-05-20 00:00 Contusion of elbow [facility] 2023-05-20 00:00 Contusion of elbow [facility] 2023-05-20 00:00 Contusion of elbow [facility] 2023-05-20 [...] [facility] 2023-07-25 00:00 Acute upper respirat ory infections of unspecified site [facility] [place] 2023-07-25 00:00 Acute upper respirat ory infections of unspecified site [facility] [place] 2023-07-25 00:00 Acute upper respirat ory infections of unspecified site [facility] [place] 2023-07-25 00:00 Acute bronchitis [facility] [place] 2023-07-25 00:00 Acute bronchitis [facility] [place] 2023-07-25 00:00 Acute bronchitis [facility] [place] 2023-07-25 00:00 Upper respiratory infection [facility] [place] 2023-07-25 00:00 Upper respiratory infection [facility] [place] 2023-07-25 00:00 Upper respiratory infection [facility] [place] 2023-07-25 00:00 Acute upper respirat ory infection, unspecified [facility] [place] 2023-07-25 00:00 Acute upper respirat ory infection, unspecified [facility] [place] 2023-07-25 00:00 Acute upper respirat ory infection, unspecified [facility] [place] 2023-07-25 00:00 Acute bronchitis, unspecified W alk[facility]In [facility] [place] 2023-07-25 00:00 Acute bronchitis, unspecified [facility] alk[facility] [place] 2023-07-25 00:00 Acute bronchitis, unspecified W alk[facility] [place] Procedures date description facility 2023-05-20 00:00 Visit Code Hold [facility] [place] 2023-05-20 00:00 Visit Code Hold [facility] [place] 2023-05-20 00:00 Visit Code Hold [facility] [place] 2023-05-20 00:00 Visit Code Hold [facility] [place] 2023-05-20 00:00 Visit Code Hold [facility] [place] 2023-05-20 00:00 Visit Code Hold [facility] [place] 2023-07-25 00:00 Visit Code Hold [facility] [place] 2023-07-25 00:00 Visit Code Hold [facility] [place] 2023-07-25 00:00 Visit Code Hold [facility] [place] 2023-07-27 00:00 Visit Code Hold [facility] [place] 2023-07-25 00:00 POC SARCOV2&INF A&B&RSV AMP PB [facility] [place] 2023-07-25 00:00 POC SARCOV2&INF A&B&RSV AMP PB [facility] [place] 2023-07-25 00:00 POC SARCOV2&INF A&B&RSV AMP PB [facility] [place] Social History date description facility 2023-05-20 00:00 Former smoker [facility] [place] 2023-05-20 00:00 Former smoker [facility] [place] 2023-05-20 00:00 Former smoker [facility] [place] 2023-05-20 00:00 Former smoker [facility] [place] 2023-05-20 00:00 Former smoker [facility] [place] 2023-05-20 00:00 Former smoker [facility] [place] 2023-07-25 00:00 Former smoker [facility] [place] 2023-07-25 00:00 Former smoker [facility] [place] 2023-07-25 00:00 Former smoker [facility] [place] 2023-07-27 00:00 Former smoker [facility] [place] Vital Signs date measurement value units 2023-05-20 00:00 BMI 23.31 kg/m2 2023-05-20 00:00 BP_diastolic 92 mmHg 2023-05-20 00:00 BP_systolic 166 mmHg 2023-05-20 00:00 heart_rate 67 /min 2023-05-20 00:00 height_metric 175.9 cm 2023-05-20 00:00 height_standard 69.25 in 2023-05-20 00:00 respiration_rate 17 /min 2023-05-20 00:00 temperature_metric 36.5 C 2023-05-20 00:00 temperature_standard 97.7 F 2023-05-20 00:00 weight_metric 71.85 kg 2023-05-20 00:00 weight_standard 158.4 lb 2023-07-25 00:00 BMI 22.69 kg/m2 2023-07-25 00:00 BP_diastolic 89 mmHg 2023-07-25 00:00 BP_systolic 156 mmHg 2023-07-25 00:00 heart_rate 71 /min 2023-07-25 00:00 height_metric 175.9 cm 2023-07-25 00:00 height_standard 69.25 in 2023-07-25 00:00 respiration_rate 16 /min 2023-07-25 00:00 temperature_metric 36.22 C 2023-07-25 00:00 temperature_standard 97.2 F 2023-07-25 00:00 weight_metric 69.94 kg 2023-07-25 00:00 weight_standard 154.2 lb 2023-07-27 00:00 BMI 22.68 kg/m2 2023-07-27 00:00 BP_diastolic 92 mmHg 2023-07-27 00:00 BP_systolic 172 mmHg 2023-07-27 00:00 heart_rate 69 /min 2023-07-27 00:00 height_metric 175.9 cm 2023-07-27 00:00 height_standard 69.25 in 2023-07-27 00:00 respiration_rate 16 /min 2023-07-27 00:00 temperature_metric 36.28 C 2023-07-27 00:00 temperature_standard 97.3 F 2023-07-27 00:00 weight_metric 69.91 kg 2023-07-27 00:00 weight_standard 154.13 lb
--- NOTE | 2023-08-14 12:17 | CT Report ---
PROCEDURE: PELVIS WO INDICATIONS: fall - pain head, neck, gluteal TECHNIQUE: Noncontrast 3 mm axial sections acquired through the bony pelvis, with coronal and sagittal reformatt ing. For radiation dose reduction, the following was used: automated exposure control, adjustment of mA and/or kV according to patient size. COMPARISON: CT angiogram of the abdomen and pelvis dated 01/11/2021. FINDINGS: Image quality: Excellent. Bones: No acute fracture or dislocation of the pelvis. Lumbar degenerative change with canal stenosi s at L3-L4 and L4-L5. Soft tissues: There is definite interval increase in size of an abdominal aortic aneurysm. On previo us image 54 of series 4 it measured approximately 4.2 cm in diameter. It currently measures approxima tely 5.7 cm in diameter. The size of the aneurysm is likely greater above the imaged level. There is no associated dissection which is not well delineated on this study. Question distal rectal mass. Thi s is not definite. Prostate is enlarged. IMPRESSION: 1. No evidence of acute pelvic fracture or dislocation. 2. Definite significant interval increase in the size of an abdominal aortic aneurysm, which is known to have associated dissection. Is now surgical in size. 3. Question distal rectal mass. This is not definite. Suggest correlation with digital examination. 4. Lumbar degenerative change with canal stenosis.. Reviewed by: Wm Johnson MD on 08/14/2023 12:15 PM PDT Approved by: Wm Johnson MD on 08/14/2023 12:15 PM PDT Station ID: [id number]
== END 2023-08-14 13:27 | disposition home or self-care (01) ==
LOC: EDUNIT# → ED 10:17
DX: S30.0XXA Contusion of lower back and pelvis, initial encounter (principal); R55 Syncope and collapse; W19.XXXA Unspecified fall, initial encounter; Z91.81 History of falling; R29.6 Repeated falls; I71.40 Abdominal aortic aneurysm, without rupture, unspecified; I11.0 Hypertensive heart disease with heart failure; I50.9 Heart failure, unspecified; E78.00 Pure hypercholesterolemia, unspecified; I48.91 Unspecified atrial fibrillation; Z79.01 Long term (current) use of anticoagulants; Z79.899 Other long term (current) drug therapy; Z87.891 Personal history of nicotine dependence
CPT/HCPCS: 36415; 80053; 83690; 83735; 85025; 93005; 96374; 99284

== ENCOUNTER 2023-09-01 16:35 | Outpatient (CLI) | payer MEDICARE, OTHER ==
--- NOTE | 2023-09-03 16:06 | XRAY Report ---
PROCEDURE: Hip w/Pelvis 2-3V LT INDICATIONS: CONTUSION OF LEFT HIP,INITIAL ENCOUNTER TECHNIQUE: AP pelvis with lateral view(s) of the left hip(s). COMPARISON: None. FINDINGS: Bones: No fractures or dislocations. No suspicious bony lesions. There is moderate left hip joint s pace narrowing and small collar osteophytes. Soft tissues: No suspicious soft tissue calcifications or masses. IMPRESSION: No acute bony abnormality. If there remains a high clinical concern for fracture, including inability to bear weight, consider cross-sectional imaging to exclude an occult fracture. Mild left hip osteoarthritis. Reviewed by: Sophy Muniz MD on 09/03/2023 4:05 PM PST Approved by: Sophy Muniz MD on 09/03/2023 4:05 PM PST Station ID: [id number]
== END 2023-09-01 16:36 | disposition home or self-care (01) ==
LOC: DI 16:35
PROVIDERS: ATTEND Physician Assistant Medical
DX: S70.02XA Contusion of left hip, initial encounter (principal); I71.40 Abdominal aortic aneurysm, without rupture, unspecified

== ENCOUNTER → 2023-09-01 | Outpatient (CLI) | payer MEDICARE, OTHER ==
--- NOTE | 2023-09-03 16:05 | XRAY Report ---
PROCEDURE: Femur 2V LT INDICATIONS: CONTUSION OF LEFT HIP,INITIAL ENCOUNTER TECHNIQUE: 2 views of the femur were acquired. COMPARISON: None. FINDINGS: Bones: No fractures or dislocations. No suspicious bony lesions. There is moderate left hip joint space narrowing and severe osteoarthritis at the left knee joint. Soft tissues: No suspicious soft tissue calcifications or masses. IMPRESSION: No acute bony abnormality. If there remains a high clinical concern for fracture, including inability to bear weight, consider cross-sectional imaging to exclude an occult fracture. Reviewed by: Sophy Muniz MD on 09/03/2023 4:04 PM PST Approved by: Sophy Muniz MD on 09/03/2023 4:04 PM PST Station ID: [id number]
== END | disposition home or self-care (01) ==
LOC: DI 16:34
PROVIDERS: ATTEND Nurse Practitioner Family
DX: I71.40 Abdominal aortic aneurysm, without rupture, unspecified (principal)

== ENCOUNTER 2023-09-06 11:15 | Outpatient (CLI) | payer MEDICARE, OTHER ==
--- NOTE | 2023-09-06 14:56 | Ultrasound Report ---
PROCEDURE: Retroperitoneal Limited INDICATIONS: AAA FOLLOWUP TECHNIQUE: Real time scanning was performed of the aorta and iliac arteries, with image documentatio n. COMPARISON: CT angiogram of the abdomen and pelvis dated 01/11/2021. At that time, an abdominal aorti c aneurysm was noted with a maximum diameter of 4.4 cm. A focal infrarenal abdominal aortic dissectio n was noted. 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 FINDINGS: Aorta: Proximal aorta is not seen secondary to overlying bowel gas Mid-aorta measures 2.4 x 2.6 cm. Distal aortic diameter is 5.5 x 6.6 cm. Iliac arteries: Right common iliac artery measures 1.7 cm. Left common iliac artery measures 2.4 cm . IMPRESSION: Definite interval increase in size of an abdominal aortic aneurysm, which is now surgical in diameter . A associated dissection is not well delineated on this study. Recommend referral to a vascular surgeon for potential endovascular repair. Consider CTA abdomen and pelvis, as this would be needed prior to endovascular treatment. Above discussed with CATHLEEN GRIFFITHS at the time of dictation on 09/06/2023 at 1454 hours. Recommended intervals for follow-up imaging of ectatic aortas and abdominal aortic aneurysms, per ACR consensus guidelines: 2.5-2.9 cm: 5 years 3.0-3.4 cm: 3 years 3.5-3.9 cm: 2 years 4.0-4.4 cm: 1 year 4.5-4.9 cm: 6 months + endovascular referral 5.0-5.5 cm: 3-6 months + endovascular referral Reviewed by: Wm Johnson MD on 09/06/2023 2:55 PM PST Approved by: Wm Johnson MD on 09/06/2023 2:55 PM PST Station ID: [id number]
== END 2023-09-06 11:16 | disposition home or self-care (01) ==
LOC: DI 11:15
PROVIDERS: ATTEND Nurse Practitioner Family
DX: I71.40 Abdominal aortic aneurysm, without rupture, unspecified (principal)

== ENCOUNTER 2023-10-24 09:13 | Outpatient (CLI) | payer MEDICARE, OTHER | END 2023-10-24 23:59 | disposition EMS.NT | LOC: EMS 09:13 | DX: Z03.89 Encounter for observation for other suspected diseases and conditions ruled out (principal) ==

== ENCOUNTER 2023-10-28 21:30 | Outpatient (CLI) | payer MEDICARE, OTHER | END 2023-10-28 21:31 | disposition critical access hospital (66) | LOC: EMS 21:30 | DX: I10 Essential (primary) hypertension (principal); R53.1 Weakness; W18.30XA Fall on same level, unspecified, initial encounter; Y92.015 Private garage of single-family (private) house as the place of occurrence of the external cause | CPT/HCPCS: A0425; A0429 ==

== ENCOUNTER 2023-10-28 21:58 | Emergency (ER) | payer MEDICARE, OTHER ==
--- NOTE | 2023-10-29 01:20 | ED Physician Documentation ---
PD HPI Fall - Stated complaint Stated Complaint: GLF - Chief complaint Chief Complaint: Trauma Hd/Nk - History obtained from History obtained from: Patient - Additional information Additional information: HPI from patient. SUKUMAR. Patient was walking in his garage when he lost his balance and fell backwards, landed on buttocks, then struck his head on the cement. Denies LOC, denies MARI, denies any pain including chest, back, neck, abdomen, and pelvis/buttocks. EMS notes high blood pressures in field and en route, which persist in ED. Review of Systems Eyes: denies: Loss of vision, Decreased vision Cardiac: denies: Chest pain / pressure GI: denies: Abdominal Pain Musculoskeletal: reports: Reviewed and negative Neurologic: reports: Head injury. denies: Generalized weakness, Focal weakness, Numbness, Near syncope, Syncope, Confused, Altered mental status, Unresponsive, Headache, LOC PD PAST MEDICAL HISTORY - Past Medical History Past Medical History: Yes Cardiovascular: Congestive heart failure, Hypertension, High cholesterol, Coronary artery disease, Peripheral Vascular Disease, Atrial fibrillation, Valve disorder, Other Respiratory: None Neuro: Peripheral neuropathy, Other Endocrine/Autoimmune: None GI: Colon polyps, Hepatitis, Other : Benign prostate hypertrophy, Retention, Nocturia, Frequency HEENT: Macular degeneration, Chronic hearing loss Psych: None Musculoskeletal: Osteoarthritis, Chronic back pain, Other Derm: Other - Past Surgical History Past Surgical History: Yes General: Cholecystectomy, Appendectomy, Colonoscopy Ortho: Rotator cuff repair Cardiovascular: Valve replacement, AAA, Other HEENT: Cataracts Derm: Skin cancer surgery - Present Medications Home Medications: Ambulatory Orders Medication Instructions Recorded Confirmed Atorvastatin Calcium [Lipitor] 20 mg PO DAILY 07/10/14 06/03/23 Amiodarone [Pacerone] 100 mg PO DAILY 11/14/20 06/03/23 Apixaban [Eliquis] 5 mg PO BID 11/14/20 06/03/23 FLUoxetine [PROzac] 10 mg PO DAILY 11/14/20 06/03/23 Tamsulosin [Flomax] 0.4 mg PO QPM 11/14/20 06/03/23 Cholecalciferol [Vitamin D3] 1 cap PO QPM 12/23/20 06/03/23 Glucosamine Sulfate 1 cap PO QPM 12/23/20 06/03/23 [place]-3S/Dha/Epa/Fish Oil [Fish 1 cap PO QPM 12/23/20 06/03/23 Oil 1,200 mg Softgel] Alpha Lipoic Acid 600 mg PO DAILY 03/20/23 06/03/23 Multivit-Min/Ferrous Sulfate [One 1 each PO DAILY 03/20/23 06/03/23 Daily Multivit-Mineral Tab] - Allergies Allergies/Adverse Reactions: Allergies Allergy/AdvReac Type Severity Reaction Status Date / Time Sulfa (Sulfonamide Allergy Unknown Verified 10/28/23 22:04 Antibiotics) - Social History Does the pt smoke?: No Smoking Status: Never smoker Does the pt drink ETOH?: Yes Does the pt have substance abuse?: No - Immunizations Immunizations are current?: Yes - POLST Patient has POLST: No POLST Status: DNR ( would like me to fill out a POLST form with her.) PD ED PE NORMAL - Vitals Vital signs reviewed: Yes - General General: Alert and oriented X 3, No acute distress, Well developed/nourished - HEENT HEENT: Atraumatic, PERRL, EOMI, Moist mucous membranes - Neck Neck: Supple, no meningeal sign, No bony TTP - Cardiac Cardiac: RRR - Respiratory Respiratory: No respiratory distress, Clear bilaterally - Abdomen Abdomen: Soft, Non tender - Back Back: No spinal TTP - Derm Derm: Normal color, Warm and dry - Extremities Extremities: No deformity, No tenderness to palpate, Normal ROM s pain - Neuro Neuro: Alert and oriented X 3, 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 Relevant findings are: Rate: Rate (enter#) (65) Rhythm: NSR [place]: Normal Intervals: Normal [place] QRS: Normal Ischemia: Normal ST segments PD Medical Decision Making - ED course Complexity details: re-evaluated patient, considered differential, d/w patient ED course: Asymptomatic after falling in his garage at home. No indication for testing at this time in regards to his fall, which he describes as due to loss of balance. He is exhibiting persistent high blood pressures in field and in ED. He says he has AAA and is scheduled for surgical repair this week. He is given 15mg IV labetalol in ED with improvement in BP readings (170s-190s/100s-110s before labetalol, improved to 140s-150s/80s-90s on several subsequent readings after the medication is given). Departure - Departure Disposition: Home, Self Care Clinical Impression: High blood pressure Qualifiers: Hypertension type: unspecified Qualified Code(s): I10 - Essential (primary) hy pertension Fall Qualifiers: Encounter type: initial encounter Qualified Code(s): W19.XXXA - Unspecified fall, initial encounter Condition: Good Instructions: ED Hypertension Poss, ED Prevention Fall, ED Fall Dizziness Weakn Balance Discharge Date/Time: 10/29/23 02:45
[2023-10-29] MEDS ORDERED: LABETALOL 20 MG/4 ML SYRINGE IVP STA (01:36)
[2023-10-29 02:47] VITALS: BP 156/93; O2SAT 96
== END 2023-10-29 02:45 | disposition home or self-care (01) ==
LOC: EDUNIT# → ED 21:58
DX: S09.90XA Unspecified injury of head, initial encounter (principal); W19.XXXA Unspecified fall, initial encounter; Y92.008 Other place in unspecified non-institutional (private) residence as the place of occurrence of the external cause; I10 Essential (primary) hypertension; I48.91 Unspecified atrial fibrillation
CPT/HCPCS: 93005; 99283; 99284

== ENCOUNTER 2023-12-02 22:27 | Outpatient (CLI) | payer MEDICARE, OTHER | END 2023-12-02 23:59 | disposition EMS.NT | LOC: EMS 22:27 | DX: S51.011A Laceration without foreign body of right elbow, initial encounter (principal); W01.0XXA Fall on same level from slipping, tripping and stumbling without subsequent striking against object, initial encounter; Y92.002 Bathroom of unspecified non-institutional (private) residence as the place of occurrence of the external cause ==

== ENCOUNTER 2023-12-03 10:51 | Emergency (ER) | payer MEDICARE, OTHER ==
[2023-12-03] MEDS: BUFFERED LIDOCAINE 10 ML SYRINGE SUBQ STA (11:39)
--- NOTE | 2023-12-03 11:39 | ED Physician Documentation ---
PD HPI UPPER EXT INJURY - Stated complaint Stated Complaint: RT ELBOW INJ, GLF - Chief complaint Chief Complaint: Trauma Ext - History obtained from History obtained from: Patient, Family - History of Present Illness Location: Right, Elbow Where injury occurred: Home Timing - onset: Last night (~10pm) - Additonal information Additional information: Trip and fall backwards and cut his left elbow last night around 10 PM in the bathroom. Paramedics were summoned because he could not get up but he wanted to delay coming in until today. Had some bleeding from the wound today. Last tetanus is unknown. No other injuries of significance. No headache or head injury. PD PAST MEDICAL HISTORY - Past Medical History Cardiovascular: Congestive heart failure, Hypertension, High cholesterol, Coronary artery disease, Peripheral Vascular Disease, Atrial fibrillation, Valve disorder, Other Respiratory: None Neuro: Peripheral neuropathy, Other Endocrine/Autoimmune: None GI: Colon polyps, Hepatitis, Other : Benign prostate hypertrophy, Retention, Nocturia, Frequency HEENT: Macular degeneration, Chronic hearing loss Psych: None Musculoskeletal: Osteoarthritis, Chronic back pain, Other Derm: Other - Past Surgical History Past Surgical History: Yes General: Cholecystectomy, Appendectomy, Colonoscopy Ortho: Rotator cuff repair Cardiovascular: Valve replacement, AAA, Other HEENT: Cataracts Derm: Skin cancer surgery - Present Medications Home Medications: Ambulatory Orders Medication Instructions Recorded Confirmed Atorvastatin Calcium [Lipitor] 20 mg PO DAILY 07/10/14 06/03/23 Amiodarone [Pacerone] 100 mg PO DAILY 11/14/20 06/03/23 Apixaban [Eliquis] 5 mg PO BID 11/14/20 06/03/23 FLUoxetine [PROzac] 10 mg PO DAILY 11/14/20 06/03/23 Tamsulosin [Flomax] 0.4 mg PO QPM 11/14/20 06/03/23 Cholecalciferol [Vitamin D3] 1 cap PO QPM 12/23/20 06/03/23 Glucosamine Sulfate 1 cap PO QPM 12/23/20 06/03/23 [place]-3S/Dha/Epa/Fish Oil [Fish 1 cap PO QPM 12/23/20 06/03/23 Oil 1,200 mg Softgel] Alpha Lipoic Acid 600 mg PO DAILY 03/20/23 06/03/23 Multivit-Min/Ferrous Sulfate [One 1 each PO DAILY 03/20/23 06/03/23 Daily Multivit-Mineral Tab] cephALEXin [Keflex] 500 mg PO Q6H #12 cap 12/03/23 - Allergies Allergies/Adverse Reactions: Allergies Allergy/AdvReac Type Severity Reaction Status Date / Time Sulfa (Sulfonamide Allergy Unknown Verified 12/03/23 11:26 Antibiotics) - Social History Does the pt smoke?: No Smoking Status: Never smoker Does the pt drink ETOH?: Yes Does the pt have substance abuse?: No - Immunizations Immunizations are current?: Yes - POLST Patient has POLST: No POLST Status: DNR ( would like me to fill out a POLST form with her.) PD ED PE NORMAL - Vitals Vital signs reviewed: Yes - General General: Alert and oriented X 3, No acute distress - Neck Neck: Supple, no meningeal sign, No bony TTP - Back Back: No spinal TTP - Extremities Extremities: Other (3 cm curved laceration over the right olecranon bursa without underlying bony tenderness, limited range of motion..) - Neuro Neuro: Alert and oriented X 3, Normal speech Results - Vitals Vitals: Vital Signs - 24 hr 12/03/23 10:59 Temperature 36.5 C Heart Rate 73 Respiratory 18 Rate Blood Pressure 151/93 H O2 Saturation 98 Oxygen O2 Source Room air Procedures - Laceration (location) R elbw Length in cm: 3 Wound type: Curved, Into subcut fat Neurovascular status: Sensory intact, Motor intact Anesthesia: Lidocaine 1%, With bicarb Wound preparation: Hibiclens, Irrigated copiously NS Skin layer closure: Nylon, Interrupted, Size #-0 - enter number (4-0), Sutures - enter # (5) Other: Patient tolerated well, No complications, Tetanus booster given PD Medical Decision Making - ED course ED course: Given the age of wound was right around 12 hours I did go ahead and put him on short course of prophylactic Keflex and his tetanus was updated to. Departure - Departure Disposition: 01 Home, Self Care Clinical Impression: Elbow laceration Qualifiers: Encounter type: initial encounter Laterality: right Qualified Code(s): S51.011A - Laceration without foreign body of right elbow, initial encounter Condition: Good Record reviewed to determine appropriate education?: Yes Instructions: ED Laceration All Prescriptions: cephALEXin [Keflex] 500 mg PO Q6H #12 cap Comments: Come back for any signs of infection which would include: Redness, swelling, drainage, increased pain, or fevers. You can wash it soap and water. Keep it covered and moist with bacitracin ointment which is available over the counter; avoid neosporin. Follow-up with your physician in about 14 days for suture removal. Forms: PCP List
[2023-12-03] MEDS: TETANUS/DIPHTHERIA/PERTUSSIS 0.5 ML SYRINGE IM ONE (11:40)
[2023-12-03] MEDS: cephALEXin 250 MG CAPSULE PO STA (11:40)
[2023-12-03 12:18] VITALS: BP 181/103; O2SAT 97
== END 2023-12-03 12:14 | disposition home or self-care (01) ==
LOC: ED 10:51
DX: S51.011A Laceration without foreign body of right elbow, initial encounter (principal); W01.0XXA Fall on same level from slipping, tripping and stumbling without subsequent striking against object, initial encounter; Y92.009 Unspecified place in unspecified non-institutional (private) residence as the place of occurrence of the external cause; I48.91 Unspecified atrial fibrillation; I10 Essential (primary) hypertension; Z79.01 Long term (current) use of anticoagulants; Z23 Encounter for immunization
CPT/HCPCS: 12002; 90471; 90715; 99283; A9270

== ENCOUNTER 2023-12-15 13:15 | Outpatient (CLI) | payer MEDICARE, OTHER | END 2023-12-15 23:59 | disposition EMS.NT | LOC: EMS 13:15 | DX: M25.511 Pain in right shoulder (principal); W01.198A Fall on same level from slipping, tripping and stumbling with subsequent striking against other object, initial encounter; Y92.000 Kitchen of unspecified non-institutional (private) residence as the place of occurrence of the external cause ==

== ENCOUNTER 2023-12-17 22:30 | Outpatient (CLI) | payer MEDICARE, OTHER | END 2023-12-17 22:31 | disposition EMS.NT | LOC: EMS 22:30 | DX: M25.60 Stiffness of unspecified joint, not elsewhere classified (principal) ==

== ENCOUNTER 2023-12-22 01:39 | Outpatient (CLI) | payer MEDICARE, OTHER | END 2023-12-22 23:59 | disposition EMS.NT | LOC: EMS 01:39 | DX: Z03.89 Encounter for observation for other suspected diseases and conditions ruled out (principal) ==

== ENCOUNTER 2024-02-12 09:38 | Day surgery (SDC) | payer MEDICARE, OTHER ==
[2024-02-12] MEDS ORDERED: ceFAZolin 2 GM VIAL ONE (10:05)
[2024-02-12] MEDS: LACTATED RINGERS 1,000 ML IV ONE ×2 (10:17→11:00)
[2024-02-12] MEDS ORDERED: LIDOCAINE 2% URO-JET 5 ML SYRINGE UR ONE ×2 (10:20→10:44)
[2024-02-12] MEDS: LIDOCAINE 2% URO-JET 5 ML SYRINGE UR ONE (10:50)
[2024-02-12] MEDS ORDERED: ONDANSETRON 4 MG/2 ML VIAL IVP PRN (11:04)
[2024-02-12] MEDS ORDERED: HYDROcod/ACETAM 5/325 MG TABLET PO PRN (11:04)
--- NOTE | 2024-02-12 11:10 | Discharge Plan ---
Discharge Plan Problem Reviewed?: Yes Disposition: Home, Self Care Activity Restrictions: No Restrictions Shower Restrictions: No Driving Restrictions: No Instruction Topics: Cystoscopy Additional Instructions or Follow Up instructions: You have a follow-up appoint with Dr. Mitchell on February 13 at 10:30 AM. Please arrive 15 minutes early No Smoking: If you smoke, Please STOP! Call for help. Follow-up with: Beth Peralta MD [Primary Care Provider] -
--- NOTE | 2024-02-12 11:22 | OPERATIVE REPORT ---
Operative Report - General Procedure Date: 02/12/24 Planned Procedure: Cystoscopy, UroLift Pre-Op Diagnosis: BPH with lower urinary tract symptoms Procedure Performed: Cystoscopy, UroLift 4 implants Post Op Diagnosis: BPH with lower urinary tract symptoms - Procedure Note Primary Surgeon: Stephen Anesthesia Provider: None Anesthesia Technique: Other (local) Pathology: none Estimated Blood Loss (mL): 1 Findings: lateral lobe hypertrophy, no median lobe Complications: none - Other Other Information/Narrative: After informed consent was obtained the patient was brought to the OR and laid in the supine position. He was then placed in the dorsolithotomy position. He was prepped draped in usual sterile fashion. A formal timeout was performed reconfirming the patient, procedure and laterality. 30 cc of 2% viscous lidocaine was injected per urethra and held for 10 minutes. A UroLift cystoscope was advanced then into the urinary bladder. He was noted to have lateral lobe hypertrophy bilaterally with no median lobe. He had 1-2+ trabeculations. A UroLift implant was placed 1 cm distal to the bladder neck on the left and the right anterior prostate. We placed 2 more implants just proximal to the verumontanum on the left and right. Using obturator reviewed the channel and he had an excellent anterior channel. There was minimal to no bleeding. We elected to conclude the procedure at that point. The patient had no pain and no issues. I will see him back in 2 days in the office
[2024-02-12] MEDS: HYDROcod/ACETAM 5/325 MG TABLET ONE (11:28)
[2024-02-12 11:39] VITALS: BP 169/97; O2SAT 99
== END 2024-02-12 09:39 | disposition home or self-care (01) ==
LOC: SDS 09:38
PROVIDERS: ATTEND Urology
DX: N40.1 Benign prostatic hyperplasia with lower urinary tract symptoms (principal); R33.9 Retention of urine, unspecified; Z79.01 Long term (current) use of anticoagulants; Z95.2 Presence of prosthetic heart valve
CPT/HCPCS: A9270; C9740; J7120

== ENCOUNTER 2024-03-05 11:43 | Outpatient (CLI) | payer MEDICARE, OTHER ==
--- NOTE | 2024-03-05 15:18 | Ultrasound Report ---
PROCEDURE: Extremity Soft Tissue Limited INDICATIONS: L KNEE CYST TECHNIQUE: Real-time scanning was performed of the left posterior knee, with image documentation. COMPARISON: 11/14/2022 FINDINGS: In the left posterior lateral medial knee, there is a large complex cystic lesion measuring 15.0 x 6. 5 x 9.3 cm, previously 8.3 x 2.2 x 6.0 cm. There is a large amount of solid component. No associated internal vascularity. IMPRESSION: Enlarging complex popliteal cyst in the left knee with internal solid component, which ma y represent associated hematoma. Reviewed by: Shyann Borjas MD on 03/05/2024 3:17 PM PDT Approved by: Shyann Borjas MD on 03/05/2024 3:17 PM PDT Station ID: [id number]
== END 2024-03-05 11:44 | disposition home or self-care (01) ==
LOC: DI 11:43
PROVIDERS: ATTEND Internal Medicine
DX: M71.22 Synovial cyst of popliteal space [Baker], left knee (principal)

== ENCOUNTER 2024-03-22 13:33 | Outpatient (CLI) | payer MEDICARE, OTHER ==
--- NOTE | 2024-03-22 16:09 | XRAY Report ---
PROCEDURE: Knee 4+V LT INDICATIONS: KNEE PAIN,LEFT TECHNIQUE: 4 views of the knee(s) were acquired. COMPARISON: None. FINDINGS: Bones: Asymmetric severe left medial femoral tibial compartment osteoarthritis is seen with complete loss of joint space, extensive subchondral sclerosis and cyst formation and prominent marginal osteo phyte formation. Mild to moderate genu varum is seen. No acute fracture or dislocation. No suspicious bony lesions. Soft tissues: Large knee joint effusion. No suspicious soft tissue calcifications or masses. IMPRESSION: No acute left knee fracture or dislocation. Severe left medial femoral tibial compartment osteoarthri tis with mild to moderate genu varum and large joint effusion. Reviewed by: Dilip Gallegos MD on 03/22/2024 4:08 PM PDT Approved by: Dilip Gallegos MD on 03/22/2024 4:08 PM PDT Station ID: [id number]
== END 2024-03-22 13:34 | disposition home or self-care (01) ==
LOC: DI.S 13:33
PROVIDERS: ATTEND Orthopaedic Surgery
DX: M17.12 Unilateral primary osteoarthritis, left knee (principal); M25.462 Effusion, left knee; M21.162 Varus deformity, not elsewhere classified, left knee

== ENCOUNTER 2024-04-16 15:03 | Outpatient (CLI) | payer MEDICARE, OTHER | END 2024-04-16 23:59 | disposition EMS.NT | LOC: EMS 15:03 | DX: R53.1 Weakness (principal) ==

== ENCOUNTER 2024-05-06 11:56 | Emergency (ER) | payer MEDICARE, OTHER ==
[2024-05-06 12:23] VITALS: O2SAT 93
== END 2024-05-06 12:27 | disposition left against medical advice (07) ==
LOC: ED 11:56
DX: Z53.21 Procedure and treatment not carried out due to patient leaving prior to being seen by health care provider (principal)

== ENCOUNTER 2024-05-07 07:00 | Outpatient (CLI) | payer MEDICARE, OTHER ==
--- NOTE | 2024-05-07 15:46 | XRAY Report ---
PROCEDURE: Ribs w/PA Chest 3+V RT INDICATIONS: CONTUSION OF WALL OF THORAX TECHNIQUE: 2 views of the ribs were acquired, along with a single view chest. COMPARISON: Chest x-ray 06/03/2023 FINDINGS: Surgical changes and devices: Aortic valve replacement. Bones and chest wall: No fractures or dislocations. No suspicious bony lesions. Overlying soft tis sues appear unremarkable. Lungs and pleura: No pleural effusions or pneumothorax. Lungs appear clear. Mediastinum: Mediastinal contours appear normal. Heart size is normal. IMPRESSION: No visualized acute fracture or dislocation. However, occult injury cannot be excluded. Recommend alejandro rt interval imaging follow-up in 7-10 days as clinically indicated for additional evaluation. Reviewed by: Iram Martinez MD on 05/07/2024 3:45 PM PDT Approved by: Iram Martinez MD on 05/07/2024 3:45 PM PDT Station ID: [id number]
== END 2024-05-07 23:59 | disposition home or self-care (01) ==
LOC: DI.S 07:00
PROVIDERS: ATTEND Emergency Medicine
DX: S20.221A Contusion of right back wall of thorax, initial encounter (principal)

== ENCOUNTER 2024-05-31 16:38 | Outpatient (CLI) | payer MEDICARE, OTHER | END 2024-05-31 16:39 | disposition EMS.NT | LOC: EMS 16:38 | DX: S09.90XA Unspecified injury of head, initial encounter (principal); R07.89 Other chest pain; S00.81XA Abrasion of other part of head, initial encounter; W18.09XA Striking against other object with subsequent fall, initial encounter; Y93.01 Activity, walking, marching and hiking; Y92.008 Other place in unspecified non-institutional (private) residence as the place of occurrence of the external cause ==

== ENCOUNTER 2024-06-07 22:37 | Outpatient (CLI) | payer MEDICARE, OTHER | END 2024-06-07 23:59 | disposition critical access hospital (66) | LOC: EMS 22:37 | DX: Z04.3 Encounter for examination and observation following other accident (principal); I10 Essential (primary) hypertension | CPT/HCPCS: A0425; A0429 ==

== ENCOUNTER 2024-06-07 23:12 | Emergency (ER) | payer MEDICARE, OTHER ==
[2024-06-07 23:23] VITALS: O2SAT 96
[2024-06-07 23:26] LABS: BASOPHILS % (AUTO) 0.3 %; EOSINOPHILS # (AUTO) 0.3 10^3/uL (0.0-0.7); EOSINOPHILS % (AUTO) 4.7 %; HCT - HEMATOCRIT 35.7 % (42.0-52.0); HGB - HEMOGLOBIN 11.3 g/dL (14.0-18.0); LYMPHOCYTES % (AUTO) 14.5 %; MEAN CORPUSCULAR HEMOGLOBIN 27.6 pg (27.0-31.0); MEAN CORPUSCULAR HGB CONC 31.7 g/dL (32.0-36.0); MEAN CORPUSCULAR VOLUME 87.1 fL (80.0-94.0); MEAN PLATELET VOLUME 9.6 fL (7.4-11.4); MONOCYTES # (AUTO) 0.8 10^3/uL (0.0-1.0); MONOCYTES % (AUTO) 12.8 %; NEUTROPHILS # (AUTO) 4.4 10^3/uL (1.5-6.6); NEUTROPHILS % (AUTO) 67.2 %; PLT - PLATELET COUNT 224 10^3/uL (130-450); RED CELL DISTRIBUTION WIDTH 16.1 % (12.0-15.0); WHITE BLOOD COUNT 6.6 x10^3/uL (4.8-10.8)
[2024-06-07 23:41] LABS: ALBUMIN/GLOBULIN RATIO 1.9 (1.0-2.2); BILIRUBIN,TOTAL 0.5 mg/dL (0.2-1.0); CALCIUM 9.2 mg/dL (8.5-10.3); CREATININE 0.7 mg/dL (0.6-1.3); POTASSIUM 3.9 mmol/L (3.5-4.5); TOTAL PROTEIN 6.1 g/dL (6.4-8.9)
--- NOTE | 2024-06-08 00:19 | ED Physician Documentation ---
History of Present Illness - Stated complaint Stated Complaint: HIGH BP - Chief complaint Chief Complaint: Cardiac - History obtained from History obtained from: Patient - Additonal information Additional information: 84-year-old male with history of recurrent falls presents by EMS from home for elevated blood pressure reading. Patient states that he was trying to get out of bed when he accidentally slid to the floor and could not get up. He called 911 for a lift assist. When they evaluated him they found that his blood pressure was greater than 200 systolic, and even though patient did not have any complaints they recommended he come to the ER for evaluation. Patient states that he did not want to come in, but his encouraged him to be checked out. He states that he is in his usual state of health and has no complaints. Patient denies hitting his head or loss of consciousness during his slide to the ground. Review of Systems Constitutional: denies: Fever, Chills Cardiac: denies: Chest pain / pressure, Palpitations, Calf pain Respiratory: denies: Dyspnea, Cough, Wheezing GI: denies: Abdominal Pain, Nausea, Vomiting, Constipation, Diarrhea Musculoskeletal: denies: Neck pain, Back pain, Extremity pain, Extremity swelling Neurologic: denies: Headache, Head injury, LOC PD PAST MEDICAL HISTORY - Past Medical History Cardiovascular: Hypertension Respiratory: None Neuro: Peripheral neuropathy, Other Endocrine/Autoimmune: None GI: Colon polyps, Other : Benign prostate hypertrophy, Retention, Nocturia, Frequency HEENT: Chronic vision loss, Macular degeneration, Chronic hearing loss Psych: Depression Musculoskeletal: Osteoarthritis, Chronic back pain, Other Derm: Other - Past Surgical History Past Surgical History: Yes General: Appendectomy, Colonoscopy Ortho: Rotator cuff repair, Other Cardiovascular: Valve replacement, AAA, Other HEENT: Cataracts Derm: Skin cancer surgery - Present Medications Home Medications: Ambulatory Orders Medication Instructions Recorded Confirmed Atorvastatin Calcium [Lipitor] 20 mg PO DAILY 07/10/14 02/05/24 Amiodarone [Pacerone] 100 mg PO DAILY 11/14/20 02/05/24 FLUoxetine [PROzac] 10 mg PO DAILY 11/14/20 02/12/24 Cholecalciferol [Vitamin D3] 1 cap PO QPM 12/23/20 02/05/24 Glucosamine Sulfate 1 cap PO QPM 12/23/20 02/05/24 [place]-3S/Dha/Epa/Fish Oil [Fish 1 cap PO QPM 12/23/20 02/05/24 Oil 1,200 mg Softgel] Alpha Lipoic Acid 600 mg PO DAILY 03/20/23 02/05/24 Multivit-Min/Ferrous Sulfate [One 1 each PO DAILY 03/20/23 02/05/24 Daily Multivit-Mineral Tab] Famotidine [Pepcid] 20 mg PO DAILY PRN 02/05/24 02/05/24 amLODIPine [Norvasc] 5 mg PO DAILY #30 tablet 06/08/24 - Allergies Allergies/Adverse Reactions: Allergies Allergy/AdvReac Type Severity Reaction Status Date / Time Sulfa (Sulfonamide Allergy Unknown Verified 06/07/24 23:18 Antibiotics) - Social History Does the pt smoke?: No Smoking Status: Never smoker Does the pt drink ETOH?: Yes Does the pt have substance abuse?: No - Immunizations Immunizations are current?: Yes - POLST Patient has POLST: No POLST Status: DNR ( would like me to fill out a POLST form with her.) PD ED PE NORMAL - Vitals Vital signs reviewed: Yes - General General: Alert and oriented X 3, No acute distress, Well developed/nourished, Other (frail) - HEENT HEENT: Atraumatic, PERRL, EOMI, Ears normal - Neck Neck: Supple, no meningeal sign, C-Spine cleared by NEXUS criteria - Cardiac Cardiac: RRR, Strong equal pulses - Respiratory Respiratory: No respiratory distress, Clear bilaterally - Abdomen Abdomen: Soft, Non tender, Non distended - Derm Derm: Normal color, Warm and dry, No rash - Extremities Extremities: No deformity, No tenderness to palpate, Normal ROM s pain, No edema - Neuro Neuro: Alert and oriented X 3, roasterman 2-12 intact, No motor deficit, Normal speech Results - Vitals Vitals: Oxygen O2 Source Room air - Labs Labs: Laboratory Tests 06/07/24 06/07/24 06/08/24 23:17 23:17 00:13 WBC 6.6 RBC 4.10 L Hgb 11.3 L Hct 35.7 L MCV 87.1 MCH 27.6 MCHC 31.7 L RDW 16.1 H Plt Count 224 MPV 9.6 Neut # (Auto) 4.4 Lymph # (Auto) 1.0 L [place] # (Auto) 0.8 Eos # (Auto) 0.3 Baso # (Auto) 0.0 Absolute Nucleated RBC 0.00 Nucleated RBC % 0.0 Sodium 133 L Potassium 3.9 Chloride 101 Carbon Dioxide 24 Anion Gap 8.0 BUN 21 H Creatinine 0.7 Estimated GFR (MDRD) 107 Glucose 109 H Calcium 9.2 Total Bilirubin 0.5 AST 19 ALT 13 Alkaline Phosphatase 177 H Total Protein 6.1 L Albumin 4.0 Globulin 2.1 Albumin/Globulin Ratio 1.9 Urine Color YELLOW Urine Clarity CLEAR Urine pH 7.0 Ur Specific [place] 1.020 Urine Protein NEGATIVE Urine Glucose (UA) NEGATIVE Urine Ketones NEGATIVE Urine Occult Blood NEGATIVE Urine Nitrite NEGATIVE Urine Bilirubin NEGATIVE Urine Urobilinogen 0.2 (NORMAL) Ur Leukocyte Esterase NEGATIVE Ur Microscopic Review NOT INDICATED Urine Culture Comments NOT INDICATED PD Medical Decision Making - ED course Complexity details: reviewed results, re-evaluated patient, considered differential, d/w patient, d/w family ED course: Well-appearing patient with asymptomatic hypertension incidentally noted when patient called for lift assist. Patient denying complaints, states that he has felt in his usual state of health. Laboratory work reviewed, no significant abnormality identified. No evidence of endorgan damage. Patient denies history of hypertension, however he likely does have unrecognized HTN. Patient to be started on low dose amlodipine. Patient and his stated they will follow up with his lead engineer for his BP medications. Departure - Departure Disposition: 01 Home, Self Care Clinical Impression: HTN (hypertension) Condition: Stable Instructions: ED Hypertension New Begin Tx Prescriptions: amLODIPine [Norvasc] 5 mg PO DAILY #30 tablet Comments: Your labs today are reassuring. I will start you on a low dose blood pressure medication. It has been sent to the [facility] in [place]. Follow up with your primary care doctor. Forms: PCP List Discharge Date/Time: 06/08/24 00:30
[2024-06-08 00:20] LABS: BILIRUBIN,URINE NEGATIVE (NEGATIVE); CLARITY,URINE CLEAR (CLEAR); GLUCOSE, URINE (UA) NEGATIVE (NEGATIVE); KETONES,URINE (UA) NEGATIVE (NEGATIVE); LEUKOCYTE ESTERASE, URINE NEGATIVE (NEGATIVE); NITRITE,URINE NEGATIVE (NEGATIVE); OCCULT BLOOD,URINE NEGATIVE (NEGATIVE); PROTEIN,URINE NEGATIVE (NEGATIVE); UROBILINOGEN,URINE 0.2 (NORMAL) E.U./dL (NORMAL)
[2024-06-08 00:31] VITALS: BP 188/106
== END 2024-06-08 00:30 | disposition home or self-care (01) ==
LOC: ED 23:12
DX: I10 Essential (primary) hypertension (principal); N40.0 Benign prostatic hyperplasia without lower urinary tract symptoms; G62.9 Polyneuropathy, unspecified; Z79.899 Other long term (current) drug therapy; Z66 Do not resuscitate
CPT/HCPCS: 36415; 80053; 81001; 81003; 85025; 87086; 93005; 99283

== ENCOUNTER 2024-06-13 05:54 | Outpatient (CLI) | payer MEDICARE, OTHER | END 2024-06-13 23:59 | disposition critical access hospital (66) | LOC: EMS 05:54 | DX: R53.1 Weakness (principal); R19.7 Diarrhea, unspecified; S51.812A Laceration without foreign body of left forearm, initial encounter; W18.39XA Other fall on same level, initial encounter; Y92.009 Unspecified place in unspecified non-institutional (private) residence as the place of occurrence of the external cause; R29.6 Repeated falls; R06.82 Tachypnea, not elsewhere classified; R09.02 Hypoxemia; R03.1 Nonspecific low blood-pressure reading; R51.9 Headache, unspecified; M54.2 Cervicalgia | CPT/HCPCS: A0425; A0427 ==

== ENCOUNTER 2024-07-04 18:16 | Outpatient (CLI) | payer MEDICARE, OTHER | END 2024-07-04 18:17 | disposition EMS.NT | LOC: EMS 18:16 | DX: L53.9 Erythematous condition, unspecified (principal) ==

== ENCOUNTER 2024-07-24 21:11 | Inpatient (IN) | payer MEDICARE, OTHER ==
--- NOTE | 2024-07-24 21:19 | ED Physician Documentation ---
History of Present Illness - Stated complaint Stated Complaint: GEN WEAKNESS - History obtained from History obtained from: Patient, EMS - Additonal information Additional information: He has a history of atrial fibrillation and TAVR. He became sick this morning with fever and progressive weakness throughout the day subsequently kind of crumpling out of bed a couple of times. There was no injury. He is feeling okay except he says he has heavy breathing. EMS noted him to have a significant orthostasis with blood pressure going from 141 systolic down to 91 systolic with position changes. He denies cough, sore throat, runny nose, abdominal pain, urinary complaints or rash. PD PAST MEDICAL HISTORY - Past Medical History Cardiovascular: Hypertension Respiratory: None Neuro: None Endocrine/Autoimmune: None GI: Colon polyps, Other : Benign prostate hypertrophy, Frequency, Retention, Nocturia HEENT: Macular degeneration, Chronic hearing loss, Chronic vision loss Psych: Depression Musculoskeletal: Osteoarthritis, Chronic back pain, Other Derm: Other - Past Surgical History Past Surgical History: Yes General: Appendectomy, Colonoscopy Ortho: Rotator cuff repair, Other Cardiovascular: AAA, Valve replacement, Other HEENT: Cataracts Derm: Skin cancer surgery - Present Medications Home Medications: Ambulatory Orders Medication Instructions Recorded Confirmed Atorvastatin Calcium [Lipitor] 20 mg PO DAILY 07/10/14 02/05/24 Amiodarone [Pacerone] 100 mg PO DAILY 11/14/20 02/05/24 FLUoxetine [PROzac] 10 mg PO DAILY 11/14/20 02/12/24 Cholecalciferol [Vitamin D3] 1 cap PO QPM 12/23/20 02/05/24 Glucosamine Sulfate 1 cap PO QPM 12/23/20 02/05/24 Ray-3S/Dha/Epa/Fish Oil [Fish 1 cap PO QPM 12/23/20 02/05/24 Oil 1,200 mg Softgel] Alpha Lipoic Acid 600 mg PO DAILY 03/20/23 02/05/24 Multivit-Min/Ferrous Sulfate [One 1 each PO DAILY 03/20/23 02/05/24 Daily Multivit-Mineral Tab] Famotidine [Pepcid] 20 mg PO DAILY PRN 02/05/24 02/05/24 amLODIPine [Norvasc] 5 mg PO DAILY #30 tablet 06/08/24 Diphenoxylate/Atropine [Lomotil] 1 each PO QID PRN #12 tablet 06/13/24 Ondansetron Odt [Zofran] 4 mg TL Q6H PRN #10 tablet 06/13/24 - Allergies Allergies/Adverse Reactions: Allergies Allergy/AdvReac Type Severity Reaction Status Date / Time Sulfa (Sulfonamide Allergy Unknown Verified 07/24/24 21:15 Antibiotics) - Social History Does the pt smoke?: No Smoking Status: Former smoker Does the pt drink ETOH?: Yes Does the pt have substance abuse?: No - Immunizations Immunizations are current?: Yes - POLST Patient has POLST: No POLST Status: DNR PD ED PE NORMAL - Vitals Vital signs reviewed: Yes - General General: Alert and oriented X 3, No acute distress - HEENT HEENT: PERRL, EOMI, Pharynx benign - Neck Neck: Supple, no meningeal sign - Cardiac Cardiac: RRR, No murmur - Respiratory Respiratory: No respiratory distress, Clear bilaterally - Abdomen Abdomen: Soft, Non tender - Derm Derm: No rash - Extremities Extremities: No edema, No calf tenderness / cord - Neuro Neuro: Alert and oriented X 3 Results - Vitals Vitals: Vital Signs - 24 hr 07/24/24 07/24/24 21:15 22:50 Temperature 37.1 C Heart Rate 63 66 Respiratory 23 25 H Rate Blood Pressure 152/81 H 144/79 H O2 Saturation 96 92 Oxygen O2 Source Room air - EKG (time done) 2131 EKG releavant findings:: EKG personally interpreted by author of this note. Relevant findings are: Rate: Rate (enter#) (59) Rhythm: NSR [place]: Normal Intervals: Prolonged QT QRS: Normal Ischemia: Normal ST segments, Q waves (III/F). No: ST elevation c/w ischemia, ST depression Computer interpretation: Agree with computer - Labs Labs: Laboratory Tests 07/24/24 07/24/24 07/24/24 21:34 21:43 21:43 WBC 5.4 RBC 3.86 L Hgb 10.8 L Hct 33.2 L MCV 86.0 MCH 28.0 MCHC 32.5 RDW 15.9 H Plt Count 177 MPV 9.4 Neut # (Auto) 4.5 Lymph # (Auto) 0.4 L [place] # (Auto) 0.4 Eos # (Auto) 0.0 Baso # (Auto) 0.0 Absolute Nucleated RBC 0.00 Nucleated RBC % 0.0 Sodium 133 L Potassium 3.4 L Chloride 104 Carbon Dioxide 23 Anion Gap 6.0 BUN 24 H Creatinine 0.7 Estimated GFR (MDRD) 107 Glucose 117 H Lactic Acid Calcium 8.5 Total Bilirubin 0.5 AST 18 ALT 11 Alkaline Phosphatase 123 H Total Protein 5.7 L Albumin 3.6 Globulin 2.1 Albumin/Globulin Ratio 1.7 Urine Color Urine Clarity Urine pH Ur Specific [place] Urine Protein Urine Glucose (UA) Urine Ketones Urine Occult Blood Urine Nitrite Urine Bilirubin Urine Urobilinogen Ur Leukocyte Esterase Urine RBC Urine WBC Ur Squamous Epith Cells Urine Bacteria Urine Culture Comments Nasal Adenovirus (PCR) NOT DETECTED Nasal B. parapertussis DNA (PCR) NOT DETECTED Nasal Coronavir 229E PCR NOT DETECTED Nasal Coronavir HKU1 PCR NOT DETECTED Nasal Coronavir NL63 PCR NOT DETECTED Nasal Coronavir OC43 PCR NOT DETECTED Nasal Enterovir/Rhinovir PCR NOT DETECTED Nasal Influenza B PCR NOT DETECTED Nasal Influenza A PCR NOT DETECTED Nasal Parainfluen 1 PCR NOT DETECTED Nasal Parainfluen 2 PCR NOT DETECTED Nasal Parainfluen 3 PCR NOT DETECTED Nasal Parainfluen 4 PCR NOT DETECTED Nasal RSV (PCR) NOT DETECTED Nasal B.pertussis DNA PCR NOT DETECTED Nasal C.pneumoniae (PCR) NOT DETECTED Julito Human Metapneumo PCR NOT DETECTED Nasal M.pneumoniae (PCR) NOT DETECTED Nasal SARS-CoV-2 (PCR) NOT DETECTED 07/24/24 07/24/24 21:43 22:14 WBC RBC Hgb Hct MCV MCH MCHC RDW Plt Count MPV Neut # (Auto) Lymph # (Auto) [place] # (Auto) Eos # (Auto) Baso # (Auto) Absolute Nucleated RBC Nucleated RBC % Sodium Potassium Chloride Carbon Dioxide Anion Gap BUN Creatinine Estimated GFR (MDRD) Glucose Lactic Acid 1.1 Calcium Total Bilirubin AST ALT Alkaline Phosphatase Total Protein Albumin Globulin Albumin/Globulin Ratio Urine Color YELLOW Urine Clarity CLEAR Urine pH 6.0 Ur Specific [place] 1.020 Urine Protein NEGATIVE Urine Glucose (UA) NEGATIVE Urine Ketones NEGATIVE Urine Occult Blood NEGATIVE Urine Nitrite NEGATIVE Urine Bilirubin NEGATIVE Urine Urobilinogen 0.2 (NORMAL) Ur Leukocyte Esterase NEGATIVE Urine RBC 0-5 Urine WBC 0-3 Ur Squamous Epith Cells RARE Squamous Urine Bacteria Rare Urine Culture Comments NOT INDICATED Nasal Adenovirus (PCR) Nasal B. parapertussis DNA (PCR) Nasal Coronavir 229E PCR Nasal Coronavir HKU1 PCR Nasal Coronavir NL63 PCR Nasal Coronavir OC43 PCR Nasal Enterovir/Rhinovir PCR Nasal Influenza B PCR Nasal Influenza A PCR Nasal Parainfluen 1 PCR Nasal Parainfluen 2 PCR Nasal Parainfluen 3 PCR Nasal Parainfluen 4 PCR Nasal RSV (PCR) Nasal B.pertussis DNA PCR Nasal C.pneumoniae (PCR) Julito Human Metapneumo PCR Nasal M.pneumoniae (PCR) Nasal SARS-CoV-2 (PCR) PD Medical Decision Making - ED course ED course: 84yo male with fever at home, weakness, and orthostasis per EMS. DDX sepsis, viral infection. Care to Dr Lyon at 10p shift chg with all dx studies pending. Departure - Departure Clinical Impression: Fever, Weakness, Orthostasis Condition: Stable
[2024-07-24] MEDS: SODIUM CHLORIDE 0.9% 1,000 ML IV STA (21:21)
[2024-07-24 21:49] LABS: BASOPHILS % (AUTO) 0.2 %; EOSINOPHILS % (AUTO) 0.7 %; HCT - HEMATOCRIT 33.2 % (42.0-52.0); HGB - HEMOGLOBIN 10.8 g/dL (14.0-18.0); LYMPHOCYTES # (AUTO) 0.4 10^3/uL (1.5-3.5); MEAN CORPUSCULAR HGB CONC 32.5 g/dL (32.0-36.0); MEAN PLATELET VOLUME 9.4 fL (7.4-11.4); MONOCYTES # (AUTO) 0.4 10^3/uL (0.0-1.0); MONOCYTES % (AUTO) 7.3 %; NEUTROPHILS # (AUTO) 4.5 10^3/uL (1.5-6.6); NEUTROPHILS % (AUTO) 83.4 %; PLT - PLATELET COUNT 177 10^3/uL (130-450); RED BLOOD COUNT 3.86 10^6/uL (4.70-6.10); RED CELL DISTRIBUTION WIDTH 15.9 % (12.0-15.0); WHITE BLOOD COUNT 5.4 x10^3/uL (4.8-10.8)
[2024-07-24 22:01] LABS: ALBUMIN 3.6 g/dL (3.2-5.5); ALBUMIN/GLOBULIN RATIO 1.7 (1.0-2.2); BILIRUBIN,TOTAL 0.5 mg/dL (0.2-1.0); CALCIUM 8.5 mg/dL (8.5-10.3); CREATININE 0.7 mg/dL (0.6-1.3); POTASSIUM 3.4 mmol/L (3.5-4.5); TOTAL PROTEIN 5.7 g/dL (6.4-8.9)
--- NOTE | 2024-07-24 22:24 | XRAY Report ---
PROCEDURE: Chest 1V INDICATIONS: fever TECHNIQUE: One view of the chest was acquired. COMPARISON: 05/07/2024 FINDINGS: Surgical changes and devices: None. Lungs and pleura: No pleural effusions or pneumothorax. Lungs are clear. Mediastinum: Mediastinal contours appear normal. Heart size is normal. Bones and chest wall: No suspicious bony lesions. Overlying soft tissues appear unremarkable. IMPRESSION: No acute cardiopulmonary process. Reviewed by: Elmer Collazo MD on 07/24/2024 10:22 PM PDT Approved by: Elmer Collazo MD on 07/24/2024 10:22 PM PDT Station ID: [id number]
[2024-07-24 22:33] LABS: BILIRUBIN,URINE NEGATIVE (NEGATIVE); GLUCOSE, URINE (UA) NEGATIVE (NEGATIVE); KETONES,URINE (UA) NEGATIVE (NEGATIVE); LEUKOCYTE ESTERASE, URINE NEGATIVE (NEGATIVE); NITRITE,URINE NEGATIVE (NEGATIVE); OCCULT BLOOD,URINE NEGATIVE (NEGATIVE); PROTEIN,URINE NEGATIVE (NEGATIVE); UROBILINOGEN,URINE 0.2 (NORMAL) E.U./dL (NORMAL)
[2024-07-24 22:37] LABS: CLARITY,URINE CLEAR (CLEAR)
[2024-07-24 22:43] LABS: B. PARAPERTUSSIS- RESP PCR PAN NOT DETECTED; B. PERTUSSIS- RESP PCR PANEL NOT DETECTED; C. PNEUMONIAE- RESP PCR PANEL NOT DETECTED; CORONAVIRUS 229E-RESP PCR NOT DETECTED; CORONAVIRUS HKU1-RESP PCR NOT DETECTED; CORONAVIRUS NL63-RESP PCR NOT DETECTED; CORONAVIRUS OC43-RESP PCR NOT DETECTED; HUMAN METAPNEUMOVIRUS NOT DETECTED; INFLUENZA A- RESP PCR PANEL NOT DETECTED; INFLUENZA B - RESP PCR PANEL NOT DETECTED; M. PNEUMONIAE- RESP PCR PANEL NOT DETECTED; PARAINFLUENZA VIRUS 1 NOT DETECTED; PARAINFLUENZA VIRUS 2 NOT DETECTED; PARAINFLUENZA VIRUS 3 NOT DETECTED; PARAINFLUENZA VIRUS 4 NOT DETECTED; RHINOVIRUS/ENTEROVIRUS NOT DETECTED; RSV- RESP PCR PANEL NOT DETECTED; SARS-CoV-2 -RESP PCR PANEL NOT DETECTED
[2024-07-24 22:51] LABS: BACTERIA,URINE Rare /HPF (None Seen); RBC,URINE 0-5 /HPF (0-5); SQUAMOUS EPITHELIAL CELL,UR RARE Squamous (<= Few); WBC,URINE 0-3 /HPF (0-3)
--- NOTE | 2024-07-24 23:14 | ED Physician Documentation ---
ED Addendum - Addendum Addendum: 07/24/24 23:12 Patient endorsed to me by Dr. Price awaiting septic workup. Briefly, patient has past medical history of A-fib, hypertension, presenting with fever this morning and weakness, sliding from bed tonight when he was using the bedside commode. He was orthostatic on scene with blood pressure dropping from 1 40-90 with EMS and has been persistently tachypneic here in the emergency department, requiring 3 L of oxygen after desaturating to mid 80s on room air. Blood cult ures were drawn and patient is being treated presumptively with broad-spectrum antibiotics for potential community-acquired pneumonia. Chest x-ray was read as normal however patient does have coarse bilateral breath sounds and given his hypoxia and persistent tachypnea in the setting of history of fever I will admit for monitoring and serial labs. Disposition admit Impression 1 hypoxia 2 tachypnea 3 fever Condition fair
[2024-07-24] MEDS ORDERED: cefTRIAXone 2 GM VIAL ONE (23:37)
[2024-07-24] MEDS: cefTRIAXone 2 GM in SODIUM CHLORIDE 0.9% MINIBAG 100 ML IV STA (23:38)
[2024-07-25] MEDS: AZITHROMYCIN INJ 500 MG in SODIUM CHLORIDE 0.9% 250 ML IV STA (00:06)
[2024-07-25] MEDS ORDERED: ONDANSETRON 4 MG/2 ML VIAL IVP PRN (01:16)
[2024-07-25] MEDS ORDERED: SODIUM CHLORIDE FLUSH 0.9% 10 ML SYRINGE IVP PRN (01:16)
[2024-07-25] MEDS ORDERED: IPRATROPIUM/ALBUTEROL 3 ML NEB INH PRN (01:23)
--- NOTE | 2024-07-25 01:39 | HISTORY & PHYSICAL EXAMINATION ---
Chief Complaint - Chief Complaint Chief Complaint: generalized weakness History of Present Illness - Admitted From Admitted From:: ED - History Obtained From Records Reviewed: EMR History obtained from: Patient and ED staff and RN Exam Limitations: Telemedicine - History of Present Illness HPI Comment/Other: 84M c paroxysmal afib not on anticoagulation, HTN, and HLD presenting with report of generalized weakness at home. Patient is pleasant and has underlying cognitive memory impairment and hence not a good historian. What is gathered is that patient for the past couple of days has been generalized weak. Today he s lide off the bed twice. Most recently tonight, he was not able to get back up and hence EMS was called. Patient reportedly had a fever and was noted to be hypoxemic. He states not URI sxs and he did not feel out of breath. No chest pain. No n/v/d. No travel. No sick contact. He reportedly was tested at home with negative COVID home test. Patient does report chocking on food/liquid frequently. Here in the ED, patient was noted for hypoxemia mid 80s. Patient did well on NC O2 support. CXR negative for acute infiltrate. Patient was given abx. ED staff reached out to Hospital Medicine for assistance with medical management. History - Past Medical History Cardiovascular: reports: Hypertension Respiratory: reports: None Neuro: reports: None Endocrine/Autoimmune: reports: None GI: reports: Colon polyps, Other : reports: Benign prostate hypertrophy, Frequency, Retention, Nocturia HEENT: reports: Macular degeneration, Chronic hearing loss, Chronic vision loss Psych: reports: Depression Musculoskeletal: reports: Osteoarthritis, Chronic back pain, Other Derm: reports: Other MRSA Hx?: No - Past Surgical History General: reports: Appendectomy, Colonoscopy Ortho: reports: Rotator cuff repair, Other Cardiovascular: reports: AAA, Valve replacement, Other HEENT: reports: Cataracts Derm: reports: Skin cancer surgery - Family & Social History Family History: Mother: , Father: Family History Comment/Other: Dad of [place] age 72. Mom of cancer. 2 children who are alive and well. Daughter has thyroid and B12 deficiency. Living Situation: With spouse/s.o. Social History Notes: former smoker Who smoked from age 18 to age 26. over 50 years, To his first . They were both born in [facility]. 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 Lived in [place] for 25 years, retired, and then came to [facility] and they been here since the age of 58 for him. no recreational substance abuse. Drank excessively in his 20s. But he slowed down over time and over the last 2-3 decades really only drinks a glass of wine a night. - POLST Patient has POLST: No POLST Status: DNR Meds/Allgy - Home Medications Home Medications: Ambulatory Orders Medication Instructions Recorded Confirmed Atorvastatin Calcium [Lipitor] 20 mg PO QPM 07/10/14 07/24/24 Amiodarone [Pacerone] 100 mg PO DAILY 11/14/20 07/24/24 FLUoxetine [PROzac] 10 mg PO DAILY 11/14/20 07/24/24 Cholecalciferol [Vitamin D3] 5,000 unit PO QPM 12/23/20 07/24/24 Alpha Lipoic Acid 600 mg PO QPM 03/20/23 07/24/24 Multivit-Min/Ferrous Sulfate [One 1 each PO DAILY 03/20/23 07/24/24 Daily Multivit-Mineral Tab] amLODIPine [Norvasc] 5 mg PO DAILY #30 tablet 06/08/24 07/24/24 Aspirin [Aspirin Regimen] 81 mg PO DAILY 07/24/24 07/24/24 Glucosamine HCl/Chondroitin [place] 1 each PO QPM 07/24/24 07/24/24 [Glucosamine-Chondroitin Cap] [place]-3/Dha/Epa/Fish Oil [Fish Oil 1 each PO DAILY 07/24/24 07/24/24 1,000 mg Softgel] - Allergies Allergies/Adverse Reactions: Allergies Allergy/AdvReac Type Severity Reaction Status Date / Time Sulfa (Sulfonamide Allergy Unknown Verified 07/24/24 21:15 Antibiotics) Review of Systems - Other Findings Other Findings: negative unless mentioned differently. Exam - Vital Signs Reviewed Vital Signs: Yes Vital Signs: Vital Signs x48h Temp Pulse Resp BP Pulse Ox O2 Flow Rate 07/24/24 23:35 58 L 16 158/86 H 95 3 07/24/24 23:06 91 L 3 07/24/24 23:03 87 L 07/24/24 22:50 66 25 H 144/79 H 92 07/24/24 22:13 92 07/24/24 22:10 86 L 07/24/24 21:15 37.1 C 63 23 152/81 H 96 - Physical Exam General Appearance: positive: No acute distress, Alert Eyes Bilateral: positive: Normal inspection ENT: positive: ENT inspection nml Neck: positive: Nml inspection Respiratory: positive: Breath sounds nml (per ED satff, no wheeze, rhonchi, crackles.) Cardiovascular: positive: Regular rate & rhythm (per ED staff) Abdomen: positive: Non-tender (per ED staff) Skin: positive: Color nml Extremities: positive: Non-tender, Full ROM, Nml appearance Neurologic/Psychiatric: positive: Oriented x3, CN's nml (2-12) Conclusion/Plan - Problem List (1) Acute hypoxemic respiratory failure Conclusion/Plan: 2/2 acute bronchitis. will gtreat bronchitis c abx. r/o aspiration with speech swallowing. O2 support and breathing treatment. (2) Acute bronchitis Conclusion/Plan: cxr negetive. however possible aspiration events. empiric abx. followup procalcitonin and cultures for abx guidance. (3) Dysphagia Conclusion/Plan: patient reporting difficulty swallowing with freq choking. poss aspiration events. will keep npo and consult speech and swallow for eval and recommendations. (4) Paroxysmal atrial fibrillation Conclusion/Plan: on amiodarone for rate / rhythm control. continue amiodarone. monitor with tele. no anticoagulation noted on home meds. (5) Hyperlipidemia Conclusion/Plan: managed. continue atorvastatin (6) HTN (hypertension) Conclusion/Plan: controlled. continue amiodarone and amlodipine - Lab Results Lab results reviewed: Yes Fish Bones: 07/24/24 21:43 07/24/24 21:43 - Diagnostic Imaging Results Diagnostic Imaging Results: positive: Final report reviewed Core Measures - Anticipated LOS I expect patient to be DC'd or transferred within 96 hours.: Yes - Issues Hospital Issues and Management Plan: The patient consented to receive this telemedicine service, which I performed via live two-way audiovisual equipment. The patient is at [facility] and I am physically in [facility]. A nurse assisted me in the visit. Full code SCDs, Heparin Inpatient [facility] DO Internal Medicine [facility] [employer] - DVT/VTE - Prophylaxis VTE/DVT Device ordered at admit?: Yes Telemedicine Consult Details - Provider Location & Consult Time Telemedicine consultation conducted via videoconferencing?: Yes List names and roles of persons who participated in consult:: ED staff, RN, and patient Telemedicine provider location:: [facility] Time Telemedicine consult began:: 01:11 Time Telemedicine consult completed:: 02:11
[2024-07-25] MEDS: POTASSIUM CHLORIDE 20 MEQ TABLET PO ONE (02:17)
[2024-07-25] MEDS: ACETAMINOPHEN 325 MG TABLET PO PRN (03:01)
[2024-07-25 05:43] LABS: EOSINOPHILS # (AUTO) 0.1 10^3/uL (0.0-0.7); EOSINOPHILS % (AUTO) 1.8 %; HCT - HEMATOCRIT 36.8 % (42.0-52.0); HGB - HEMOGLOBIN 11.8 g/dL (14.0-18.0); LYMPHOCYTES # (AUTO) 0.7 10^3/uL (1.5-3.5); MEAN CORPUSCULAR HEMOGLOBIN 27.4 pg (27.0-31.0); MEAN CORPUSCULAR HGB CONC 32.1 g/dL (32.0-36.0); MEAN CORPUSCULAR VOLUME 85.6 fL (80.0-94.0); MEAN PLATELET VOLUME 9.5 fL (7.4-11.4); MONOCYTES # (AUTO) 0.5 10^3/uL (0.0-1.0); MONOCYTES % (AUTO) 10.1 %; NEUTROPHILS # (AUTO) 3.7 10^3/uL (1.5-6.6); NEUTROPHILS % (AUTO) 73.7 %; PLT - PLATELET COUNT 211 10^3/uL (130-450); RED CELL DISTRIBUTION WIDTH 15.9 % (12.0-15.0); WHITE BLOOD COUNT 5.1 x10^3/uL (4.8-10.8)
[2024-07-25 05:58] LABS: ALBUMIN 3.8 g/dL (3.2-5.5); ALBUMIN/GLOBULIN RATIO 1.7 (1.0-2.2); BILIRUBIN,TOTAL 0.4 mg/dL (0.2-1.0); CALCIUM 8.8 mg/dL (8.5-10.3); CREATININE 0.6 mg/dL (0.6-1.3); MAGNESIUM 1.9 mg/dL (1.7-2.3); PHOSPHORUS 2.8 mg/dL (2.5-5.0); POTASSIUM 3.5 mmol/L (3.5-4.5)
[2024-07-25 06:01] LABS: TROPONIN I HIGH SENSITIVITY 8.5 ng/L (2.3-19.7)
[2024-07-25 06:12] LABS: THYROID STIMULATING HORMONE 2.42 uIU/mL (0.34-5.60)
--- NOTE | 2024-07-25 06:45 | PROVIDER PROGRESS NOTE ---
Sound Tester Note - Sound Tester Note Sound Tester Note: RN paged to report "chart states "full code" in initial admission - but the ED report says "DNR" patient admitted to floor at 0200 and confirms he wishes to be "DNR" please update chart to reflect this. thank you!" When patient was admitted, patient had expressed desire to be intubated if necessary and all necessary intervention hence full code however it seems patient has changed his mind per RN message. will change to DNR per patient's d/w RN. Skyla Bermudez
[2024-07-25] MEDS: FLUoxetine 10 MG CAPSULE PO SCH (08:50)
[2024-07-25] MEDS: ASPIRIN EC 81 MG TABLET PO SCH (08:50)
[2024-07-25] MEDS: AMIODARONE 200 MG TABLET PO SCH (08:50)
[2024-07-25] MEDS: DOXYCYCLINE INJ 100 MG in SODIUM CHLORIDE 0.9% MINIBAG 100 ML IV SCH (08:50)
[2024-07-25] MEDS: amLODIPine 5 MG TABLET PO SCH (08:50)
[2024-07-25] MEDS: SODIUM CHLORIDE FLUSH 0.9% 10 ML SYRINGE IVP SCH (08:50)
[2024-07-25] MEDS: HEPARIN 5,000 UNIT/ML VIAL SUBQ SCH (08:54)
--- NOTE | 2024-07-25 10:23 | PROVIDER PROGRESS NOTE ---
Subjective - Prog Note Date Prog Note Date: 07/25/24 Prog Note Time: 10:14 - Subjective Pt reports feeling: Improved Subjective: Mr. Byrnes is a pleasant 84 year old who presents today with generalized weakness and difficulty swallowing. He reports he feels a lot better today. He expressed interest in wanting to get up and walk around with his walker. I informed the patient that he can try to get up and walk as long as the nurse is with him. He stated his difficulty of swallowing began 2-3 months ago occurring once or twice a day. He is able to eat but feels a "tickle" in the back of his throat. Patient states he does not currently smoke. He stopped smoking when he was 23 years old old, only smoked for 5 years and smoked 1 pack of 10 a day. He was not surround by his people around him that did smoke. Patient states he woke up last night with some night sweats. He does admit to SOB. Patient states his SOB occurs when he is moving around and doing physical activity feeling like he has to breath deeper. His last bowel movement was 2-3 days ago. He states he feels constipated. Patient denies fever, chills, nausea and vomitting, changes to vision, hearing, voice, chest pain or chest tightness, abdominal pain or urinary symptoms. Current Medications - Current Medications Current Medications: Medications Acetaminophen (Acetaminophen 325 Mg Tablet) 650 mg PO Q4HR PRN PRN Reason: Pain 1 to 4, or Fever Last Admin: 07/25/24 03:01 Dose: 650 mg Albuterol/Ipratropium (Ipratropium/Albuterol 3 Ml Neb) 3 ml INH Q4HR PRN PRN Reason: Wheezing Amiodarone HCl (Amiodarone 200 Mg Tablet) 100 mg PO DAILY [facility] Last Admin: 07/25/24 08:50 Dose: 100 mg Heparin Sodium (Porcine) (Heparin 5,000 Unit/Ml Vial) 5,000 unit SUBQ BID [facility] Last Admin: 07/25/24 08:54 Dose: 5,000 unit Ondansetron HCl (Ondansetron 4 Mg/2 Ml Vial) 4 mg IVP Q6HR PRN PRN Reason: Nausea / Vomiting Amlodipine Besylate (Amlodipine 5 Mg Tablet) 5 mg PO DAILY [facility] Last Admin: 07/25/24 08:50 Dose: 5 mg Aspirin (Aspirin Ec 81 Mg Tablet) 81 mg PO DAILY [facility] Last Admin: 07/25/24 08:50 Dose: 81 mg Atorvastatin Calcium (Atorvastatin 10 Mg Tablet) 20 mg PO QPM [facility] Ceftriaxone Sodium 2 gm/ (Sodium Chloride) 100 mls @ 200 mls/hr IV QPM [facility] Fluoxetine HCl (Fluoxetine 10 Mg Capsule) 10 mg PO DAILY [facility] Last Admin: 07/25/24 08:50 Dose: 10 mg Objective - Vital Signs/Intake & Output Vital Signs: Vital Signs x48h Temp Pulse Resp BP Pulse Ox O2 Flow Rate 07/25/24 07:49 36.8 C 61 18 125/74 94 3 07/25/24 02:59 73 160/91 H 07/25/24 02:58 65 138/81 H 07/25/24 02:57 36.7 C 59 L 14 184/80 H 96 3 Intake & Output: Intake & Output 07/22/24 07/23/24 07/24/24 07/25/24 23:59 23:59 23:59 23:59 Intake Total 1000 350 Output Total 1700 Balance 1000 -1350 - Objective General Appearance: positive: No acute distress, Alert Eyes Bilateral: positive: Normal inspection, No lid inflammation, Conjunctivae nml, No scleral icterus Neck: positive: Nml inspection, Thyroid nml, No JVD Respiratory: positive: No respiratory distress, Breath sounds nml Cardiovascular: positive: Regular rate & rhythm, No murmur, No gallop Peripheral Pulses: 2+ Dorsalis pedis (R), 2+ Dorsalis pedis (L) Abdomen: positive: Non-tender Skin: positive: Color nml, No rash, Warm, Dry Neurologic/Psychiatric: positive: Oriented x3, CN's nml (2-12) - Lab Results Fish Bones: 07/25/24 05:32 07/25/24 05:32 Other Labs: Lab Results x24hrs 07/25/24 07/25/24 07/25/24 Range/Units 05:32 05:32 05:32 WBC 5.1 (4.8-10.8) x10^3/uL RBC 4.30 L (4.70-6.10) 10^6/uL Hgb 11.8 L (14.0-18.0) g/dL Hct 36.8 L (42.0-52.0) % MCV 85.6 (80.0-94.0) fL MCH 27.4 (27.0-31.0) pg MCHC 32.1 (32.0-36.0) g/dL RDW 15.9 H (12.0-15.0) % Plt Count 211 (130-450) 10^3/uL MPV 9.5 (7.4-11.4) fL Neut # (Auto) 3.7 (1.5-6.6) 10^3/uL Lymph # (Auto) 0.7 L (1.5-3.5) 10^3/uL [place] # (Auto) 0.5 (0.0-1.0) 10^3/uL Eos # (Auto) 0.1 (0.0-0.7) 10^3/uL Baso # (Auto) 0.0 (0.0-0.1) 10^3/uL Absolute Nucleated RBC 0.00 x10^3/uL Nucleated RBC % 0.0 /100WBC D-Dimer (200.0-255.0) ng/mL Sodium 136 (135-145) mmol/L Potassium 3.5 (3.5-4.5) mmol/L Chloride 107 (101-111) mmol/L Carbon Dioxide 25 (21-32) mmol/L Anion Gap 4.0 L (6-13) BUN 16 (6-20) mg/dL Creatinine 0.6 (0.6-1.3) mg/dL Estimated GFR (MDRD) 128 (>89) Glucose 101 (74-104) mg/dL Lactic Acid (0.5-2.2) mmol/L Calcium 8.8 (8.5-10.3) mg/dL Phosphorus 2.8 (2.5-5.0) mg/dL Magnesium 1.9 (1.7-2.3) mg/dL Total Bilirubin 0.4 (0.2-1.0) mg/dL AST 22 (10-42) IU/L ALT 13 (10-60) IU/L Alkaline Phosphatase 126 H (42-121) IU/L Troponin I High Sens 8.5 (2.3-19.7) ng/L B-Natriuretic Peptide (5-100) pg/mL Total Protein 6.0 L (6.4-8.9) g/dL Albumin 3.8 (3.2-5.5) g/dL Globulin 2.2 (2.1-4.2) g/dL Albumin/Globulin Ratio 1.7 (1.0-2.2) Procalcitonin Immunoas 0.10 (<0.5) ng/mL TSH 2.42 (0.34-5.60) uIU/mL Urine Color Urine Clarity (CLEAR) Urine pH (5.0-7.5) PH Ur Specific Jal (1.002-1.030) Urine Protein (NEGATIVE) mg/dL Urine Glucose (UA) (NEGATIVE) mg/dL Urine Ketones (NEGATIVE) mg/dL Urine Occult Blood (NEGATIVE) Urine Nitrite (NEGATIVE) Urine Bilirubin (NEGATIVE) Urine Urobilinogen (NORMAL) E.U./dL Ur Leukocyte Esterase (NEGATIVE) Urine RBC (0-5) /HPF Urine WBC (0-3) /HPF Ur Squamous Epith Cells (<= Few) Urine Bacteria (None Seen) /HPF Urine Culture Comments Nasal Adenovirus (PCR) Nasal B. parapertussis DNA (PCR) Nasal Coronavir 229E PCR Nasal Coronavir HKU1 PCR Nasal Coronavir NL63 PCR Nasal Coronavir OC43 PCR Nasal Enterovir/Rhinovir PCR Nasal Influenza B PCR Nasal Influenza A PCR Nasal Parainfluen 1 PCR Nasal Parainfluen 2 PCR Nasal Parainfluen 3 PCR Nasal Parainfluen 4 PCR Nasal RSV (PCR) Nasal B.pertussis DNA PCR Nasal C.pneumoniae (PCR) Julito Human Metapneumo PCR Nasal M.pneumoniae (PCR) Nasal SARS-CoV-2 (PCR) 07/25/24 07/25/24 07/24/24 Range/Units 05:32 05:22 22:14 WBC (4.8-10.8) x10^3/uL RBC (4.70-6.10) 10^6/uL Hgb (14.0-18.0) g/dL Hct (42.0-52.0) % MCV (80.0-94.0) fL MCH (27.0-31.0) pg MCHC (32.0-36.0) g/dL RDW (12.0-15.0) % Plt Count (130-450) 10^3/uL MPV (7.4-11.4) fL Neut # (Auto) (1.5-6.6) 10^3/uL Lymph # (Auto) (1.5-3.5) 10^3/uL [place] # (Auto) (0.0-1.0) 10^3/uL Eos # (Auto) (0.0-0.7) 10^3/uL Baso # (Auto) (0.0-0.1) 10^3/uL Absolute Nucleated RBC x10^3/uL Nucleated RBC % /100WBC D-Dimer > 1050.0 H (200.0-255.0) ng/mL Sodium (135-145) mmol/L Potassium (3.5-4.5) mmol/L Chloride (101-111) mmol/L Carbon Dioxide (21-32) mmol/L Anion Gap (6-13) BUN (6-20) mg/dL Creatinine (0.6-1.3) mg/dL Estimated GFR (MDRD) (>89) Glucose (74-104) mg/dL Lactic Acid (0.5-2.2) mmol/L Calcium (8.5-10.3) mg/dL Phosphorus (2.5-5.0) mg/dL Magnesium (1.7-2.3) mg/dL Total Bilirubin (0.2-1.0) mg/dL AST (10-42) IU/L ALT (10-60) IU/L Alkaline Phosphatase (42-121) IU/L Troponin I High Sens (2.3-19.7) ng/L B-Natriuretic Peptide 208 H (5-100) pg/mL Total Protein (6.4-8.9) g/dL Albumin (3.2-5.5) g/dL Globulin (2.1-4.2) g/dL Albumin/Globulin Ratio (1.0-2.2) Procalcitonin Immunoas (<0.5) ng/mL TSH (0.34-5.60) uIU/mL Urine Color YELLOW Urine Clarity CLEAR (CLEAR) Urine pH 6.0 (5.0-7.5) PH Ur Specific Jal 1.020 (1.002-1.030) Urine Protein NEGATIVE (NEGATIVE) mg/dL Urine Glucose (UA) NEGATIVE (NEGATIVE) mg/dL Urine Ketones NEGATIVE (NEGATIVE) mg/dL Urine Occult Blood NEGATIVE (NEGATIVE) Urine Nitrite NEGATIVE (NEGATIVE) Urine Bilirubin NEGATIVE (NEGATIVE) Urine Urobilinogen 0.2 (NORMAL) (NORMAL) E.U./dL Ur Leukocyte Esterase NEGATIVE (NEGATIVE) Urine RBC 0-5 (0-5) /HPF Urine WBC 0-3 (0-3) /HPF Ur Squamous Epith Cells RARE Squamous (<= Few) Urine Bacteria Rare (None Seen) /HPF Urine Culture Comments NOT INDICATED Nasal Adenovirus (PCR) Nasal B. parapertussis DNA (PCR) Nasal Coronavir 229E PCR Nasal Coronavir HKU1 PCR Nasal Coronavir NL63 PCR Nasal Coronavir OC43 PCR Nasal Enterovir/Rhinovir PCR Nasal Influenza B PCR Nasal Influenza A PCR Nasal Parainfluen 1 PCR Nasal Parainfluen 2 PCR Nasal Parainfluen 3 PCR Nasal Parainfluen 4 PCR Nasal RSV (PCR) Nasal B.pertussis DNA PCR Nasal C.pneumoniae (PCR) Julito Human Metapneumo PCR Nasal M.pneumoniae (PCR) Nasal SARS-CoV-2 (PCR) 07/24/24 07/24/24 07/24/24 Range/Units 21:43 21:43 21:43 WBC 5.4 (4.8-10.8) x10^3/uL RBC 3.86 L (4.70-6.10) 10^6/uL Hgb 10.8 L (14.0-18.0) g/dL Hct 33.2 L (42.0-52.0) % MCV 86.0 (80.0-94.0) fL MCH 28.0 (27.0-31.0) pg MCHC 32.5 (32.0-36.0) g/dL RDW 15.9 H (12.0-15.0) % Plt Count 177 (130-450) 10^3/uL MPV 9.4 (7.4-11.4) fL Neut # (Auto) 4.5 (1.5-6.6) 10^3/uL Lymph # (Auto) 0.4 L (1.5-3.5) 10^3/uL [place] # (Auto) 0.4 (0.0-1.0) 10^3/uL Eos # (Auto) 0.0 (0.0-0.7) 10^3/uL Baso # (Auto) 0.0 (0.0-0.1) 10^3/uL Absolute Nucleated RBC 0.00 x10^3/uL Nucleated RBC % 0.0 /100WBC D-Dimer (200.0-255.0) ng/mL Sodium 133 L (135-145) mmol/L Potassium 3.4 L (3.5-4.5) mmol/L Chloride 104 (101-111) mmol/L Carbon Dioxide 23 (21-32) mmol/L Anion Gap 6.0 (6-13) BUN 24 H (6-20) mg/dL Creatinine 0.7 (0.6-1.3) mg/dL Estimated GFR (MDRD) 107 (>89) Glucose 117 H (74-104) mg/dL Lactic Acid 1.1 (0.5-2.2) mmol/L Calcium 8.5 (8.5-10.3) mg/dL Phosphorus (2.5-5.0) mg/dL Magnesium (1.7-2.3) mg/dL Total Bilirubin 0.5 (0.2-1.0) mg/dL AST 18 (10-42) IU/L ALT 11 (10-60) IU/L Alkaline Phosphatase 123 H (42-121) IU/L Troponin I High Sens (2.3-19.7) ng/L B-Natriuretic Peptide (5-100) pg/mL Total Protein 5.7 L (6.4-8.9) g/dL Albumin 3.6 (3.2-5.5) g/dL Globulin 2.1 (2.1-4.2) g/dL Albumin/Globulin Ratio 1.7 (1.0-2.2) Procalcitonin Immunoas (<0.5) ng/mL TSH (0.34-5.60) uIU/mL Urine Color Urine Clarity (CLEAR) Urine pH (5.0-7.5) PH Ur Specific Jal (1.002-1.030) Urine Protein (NEGATIVE) mg/dL Urine Glucose (UA) (NEGATIVE) mg/dL Urine Ketones (NEGATIVE) mg/dL Urine Occult Blood (NEGATIVE) Urine Nitrite (NEGATIVE) Urine Bilirubin (NEGATIVE) Urine Urobilinogen (NORMAL) E.U./dL Ur Leukocyte Esterase (NEGATIVE) Urine RBC (0-5) /HPF Urine WBC (0-3) /HPF Ur Squamous Epith Cells (<= Few) Urine Bacteria (None Seen) /HPF Urine Culture Comments Nasal Adenovirus (PCR) Nasal B. parapertussis DNA (PCR) Nasal Coronavir 229E PCR Nasal Coronavir HKU1 PCR Nasal Coronavir NL63 PCR Nasal Coronavir OC43 PCR Nasal Enterovir/Rhinovir PCR Nasal Influenza B PCR Nasal Influenza A PCR Nasal Parainfluen 1 PCR Nasal Parainfluen 2 PCR Nasal Parainfluen 3 PCR Nasal Parainfluen 4 PCR Nasal RSV (PCR) Nasal B.pertussis DNA PCR Nasal C.pneumoniae (PCR) Julito Human Metapneumo PCR Nasal M.pneumoniae (PCR) Nasal SARS-CoV-2 (PCR) 07/24/24 Range/Units 21:34 WBC (4.8-10.8) x10^3/uL RBC (4.70-6.10) 10^6/uL Hgb (14.0-18.0) g/dL Hct (42.0-52.0) % MCV (80.0-94.0) fL MCH (27.0-31.0) pg MCHC (32.0-36.0) g/dL RDW (12.0-15.0) % Plt Count (130-450) 10^3/uL MPV (7.4-11.4) fL Neut # (Auto) (1.5-6.6) 10^3/uL Lymph # (Auto) (1.5-3.5) 10^3/uL [place] # (Auto) (0.0-1.0) 10^3/uL Eos # (Auto) (0.0-0.7) 10^3/uL Baso # (Auto) (0.0-0.1) 10^3/uL Absolute Nucleated RBC x10^3/uL Nucleated RBC % /100WBC D-Dimer (200.0-255.0) ng/mL Sodium (135-145) mmol/L Potassium (3.5-4.5) mmol/L Chloride (101-111) mmol/L Carbon Dioxide (21-32) mmol/L Anion Gap (6-13) BUN (6-20) mg/dL Creatinine (0.6-1.3) mg/dL Estimated GFR (MDRD) (>89) Glucose (74-104) mg/dL Lactic Acid (0.5-2.2) mmol/L Calcium (8.5-10.3) mg/dL Phosphorus (2.5-5.0) mg/dL Magnesium (1.7-2.3) mg/dL Total Bilirubin (0.2-1.0) mg/dL AST (10-42) IU/L ALT (10-60) IU/L Alkaline Phosphatase (42-121) IU/L Troponin I High Sens (2.3-19.7) ng/L B-Natriuretic Peptide (5-100) pg/mL Total Protein (6.4-8.9) g/dL Albumin (3.2-5.5) g/dL Globulin (2.1-4.2) g/dL Albumin/Globulin Ratio (1.0-2.2) Procalcitonin Immunoas (<0.5) ng/mL TSH (0.34-5.60) uIU/mL Urine Color Urine Clarity (CLEAR) Urine pH (5.0-7.5) PH Ur Specific Jal (1.002-1.030) Urine Protein (NEGATIVE) mg/dL Urine Glucose (UA) (NEGATIVE) mg/dL Urine Ketones (NEGATIVE) mg/dL Urine Occult Blood (NEGATIVE) Urine Nitrite (NEGATIVE) Urine Bilirubin (NEGATIVE) Urine Urobilinogen (NORMAL) E.U./dL Ur Leukocyte Esterase (NEGATIVE) Urine RBC (0-5) /HPF Urine WBC (0-3) /HPF Ur Squamous Epith Cells (<= Few) Urine Bacteria (None Seen) /HPF Urine Culture Comments Nasal Adenovirus (PCR) NOT DETECTED Nasal B. parapertussis DNA (PCR) NOT DETECTED Nasal Coronavir 229E PCR NOT DETECTED Nasal Coronavir HKU1 PCR NOT DETECTED Nasal Coronavir NL63 PCR NOT DETECTED Nasal Coronavir OC43 PCR NOT DETECTED Nasal Enterovir/Rhinovir PCR NOT DETECTED Nasal Influenza B PCR NOT DETECTED Nasal Influenza A PCR NOT DETECTED Nasal Parainfluen 1 PCR NOT DETECTED Nasal Parainfluen 2 PCR NOT DETECTED Nasal Parainfluen 3 PCR NOT DETECTED Nasal Parainfluen 4 PCR NOT DETECTED Nasal RSV (PCR) NOT DETECTED Nasal B.pertussis DNA PCR NOT DETECTED Nasal C.pneumoniae (PCR) NOT DETECTED Julito Human Metapneumo PCR NOT DETECTED Nasal M.pneumoniae (PCR) NOT DETECTED Nasal SARS-CoV-2 (PCR) NOT DETECTED ABX Reporting Has patient been on IV antibiotics over the past 48 hours?: Yes Sepsis Event Note (H) - Evaluation Current Stage of Sepsis: Ruled out Assessment/Plan - Problem List (1) Acute hypoxemic respiratory failure Impression: - Secondary to acute bronchitis. Will treat bronchitis with Ceftriaxone 100 mls at 200 mls/hr IV QPM SADI - Chest xray shows no pleural effusions or pneumothorax - lungs are clear and heart size is normal - no acute cardiopulomary process - D-Dimer is >1050 alluding to a possibility of a PE. Patient also is not on any anticoag medications despite having Afib. I will order a CTA to confirm or decline the suspicion of a PE - I will also order an Echo to help figure out the source of his shortness of breath - Current vital shows patient HR 61 RR of 18 and 94% O2 stat on room air (2) Acute bronchitis Impression: -Patient is on Ceftriaxone for acute bronchitis - Less likely due to no findings on the chest xray (3) Dysphagia Impression: - Patient reports difficulty swallowing that began 2-3 months and occurs 1-2 times a day. He feels a tickle in the back of his throat - Patient is NPO - speech therapy is ordered to help evaluate (4) Paroxysmal atrial fibrillation Impression: - Patient is currently on 5 mg PO SADI Amiodarone for rate and rhythm control. Patient's HR is 61 indicating rate is well controlled - Patient is not on a current anticoagulation medication. Patient states his resident director stopped Eliquis due to bleeding a lot when the patient accidentally gets a cut or falls - Will continue to monitor his HR (5) COPD with acute exacerbation Impression: - Acute COPD was considered but likely to be ruled out - No findings on chest xray that would indicate COPD - Patient does not have a history of asthma - Patient denies the presence of cough, sputum production, fever or chills, or wheezing in chest - Patient stopped smoking at the age of 23. He only smoked for 5 years and smoked 1 pack of 10 a day - was around others who smoked during that time; de nies being exposed to fumes or dust exposure (6) Hyperlipidemia Impression: - Well controlled with 20mg PO QPM SADI of Atorvastatin (7) HTN (hypertension) Impression: - Well controlled with 5 mg PO SADI Amlodipine
--- NOTE | 2024-07-25 11:04 | PHARMACY PROGRESS NOTE ---
- Best Possible Medication History Admit Date and Time: 07/25/24 0116 Processed by: Pharmacy Medications reviewed in ED?: Yes Medication History completed: Yes Patient Interview: Pt unable to participate Secondary Source(s): Spouse/Significant other, Pharmacy records, Insurance records As the person ultimately responsible for medication therapy, providers are able to order a medication from an existing home medication list in [facility] via the "Reconcile Routine" prior to Confirmation of that medication by product support technician. Such practice is discouraged except when the physician, in their clinical judgment, deems that a medical need exists for a medication without regard to previous use.
[2024-07-25] MEDS ORDERED: iohexoL-300 100 ML VIAL ONE (11:10)
[2024-07-25] MEDS: iohexoL-300 100 ML VIAL IVP ONE (12:56)
--- NOTE | 2024-07-25 13:55 | ADVANCE CARE PLANNING NOTE ---
Advance Care Planning - Planning Encounter Date: 07/25/24 Time: 16:18 Purpose: establish code status and goals of care Parties in Attendance: and DPOA, daughter from [place], PA student, PT therapist Blanca, and Hospitalist Decisional Capacity of the Patient: alert, oriented and able to participate in care plan decisions - Diagnosis for Encounter (1) Acute hypoxemic respiratory failure Summary: This is a new problem for him. He is remote ex-smoker. Has no history of congestive heart failure. But he does have occasional A-fib. Had a AAA repair in the recent past. Recently fatigued with days of weakness that sometimes cause him to slump over in bed. We have done a workup and his echo shows an intact valve repair, normal ejection fraction. CT of the chest does not show PE, pneumonia or CHF. Unclear why this patient had temporary hypoxemia. The hypoxemia has now resolved. - Encounter Subjective/Patient's Story: Born and raised in [facility]. His is from [place], and he is from [place]. Once they were , they moved to the [facility] and he worked for [employer] for many years outside of [place]. Then ended up here on [facility]. He and his currently live in their own home. Daughter lives in [place]. They have long-term care insurance, and their plan is to use that long-term care insurance for caregivers in the home. Daughter states that she will also come to check on them and help. they also have POLST forms. He is DO NOT RESUSCITATE. But he still wants surgery, antibiotics, admissions to the hospital. It is only when we have exhausted all measures and it looks like he is going to pass away anyway, that we are to let him go and not to intubate or to do CPR. is his designated DPOA and his daughter is the second DPOA if his cannot speak. Overall he has increasing left knee pain that has resulted in a reduced quality of life and that he cannot get around very well. Is having more falls because the knee collapses on him. Has not been able to get his knee replacement done expeditiously because he was found to have an incidental AAA when he was in the ER for a visit of left hand cellulitis. The AAA then need to be taken care of. His most recent medical issue is a left hand cellulitis. But that is resolved. He is a little worried because he has memory loss. 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 So far he always knows where he is, and he recognizes his and daughter. He uses a walker. But sometimes that does not help because his knee hurts so badly. The physical therapist that is work with him off-and-on for the last 2 years is in the room and endorses that he has definitely been working with PT several times a week. That she thinks the plan for his knee replacement is a good 1. He is able to feed himself, dress himself. If he has any pain and discomfort it is from the knee pain with weightbearing. and daughter both state that he is doing very well right now. He had an overnight stay with empiric antibiotics. He is no longer needing oxygen. He does not have a cough. He still describes the tickle in his throat when he swallows certain foods which causes him to have a coughing spasm and a feeling of choking in the larynx. But no dysphagia. No weight loss. No change in bowel habits. Objective/Medical Story: 84M c paroxysmal afib not on anticoagulation, HTN, and HLD presenting with report of generalized weakness at home. Patient is pleasant and has underlying cognitive memory impairment and hence not a good historian. What is gathered is that patient for the past couple of days has been generalized weak. Day of admission, he slide off the bed twice. on the night of admission, he was not able to get back up and hence EMS was called. Patient reportedly had a fever and was noted to be hypoxemic. He states no URI sxs and he did not feel out of breath. No chest pain. No n/v/d. No travel. No sick contact. He reportedly was tested at home with negative COVID home test. Patient does report choking on food/liquid frequently. it is more of a tickle in the throat when he swallows. The tickle in the throat then causes him to cough. But he has no dysphagia. No weight loss. Appetite is good. No abdominal pain, no change in bowel habits. Here in the ED, patient was noted for hypoxemia mid 80s. Patient did well on NC O2 support. CXR negative for acute infiltrate. Patient was given abx. ED staff reached out to Hospital Medicine for assistance with medical management. 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 The left knee has been hurting him tremendously and he will sometimes have knee collapse and falls. He has been wanting to have a knee repair but having a cardiac issue with ablation, and then the AAA repair has delayed surgical repair. He is due to see the orthopedic surgeon tomorrow. She will do a preop assessment. The plan is for him to have knee replacement in the next 2 to 3 weeks. He will stay in the hospital for 3 days and obtain a qualifying Medicare stay for a fpc facility stay for rehab. He continues physical therapist in the outpatient setting, she states that she does think he will do okay. We are seeing him at his worst last night, and this afternoon she feels he is back to baseline. A chatty individual. He was able to work with our PT and OT on the inpatient side and did well. - Past Medical History Cardiovascular: reports: Hypertension, AAA repair Respiratory: reports: None Neuro: reports: None Endocrine/Autoimmune: reports: None GI: reports: Colon polyps, Other : reports: Benign prostate hypertrophy, Frequency, Retention, Nocturia HEENT: reports: Macular degeneration, Chronic hearing loss, Chronic vision loss Psych: reports: Depression Musculoskeletal: reports: Osteoarthritis, Chronic back pain, Other Derm: reports: Other MRSA Hx?: No - Past Surgical History General: reports: Appendectomy, Colonoscopy Ortho: reports: Rotator cuff repair, Other Cardiovascular: reports: AAA, Valve replacement, Other HEENT: reports: Cataracts Derm: reports: Skin cancer surgery Goals of Care: He would like to get the knee replacement to improve his mobility and decrease his pain He would like to get stronger after the knee replacement He has a POLST form at home. Plan: Discharge tomorrow I am having his bring in a copy of the POLST form I will also give them copies of the CT of the chest and echocardiogram we did here. I am sure that the anesthesiologist will need that for preop evaluation for his knee surgery. Code Status: Do Not Attempt Resuscitation Time spent on advance care plannin minutes
--- NOTE | 2024-07-25 14:23 | CT Report ---
PROCEDURE: Angio Chest INDICATIONS: hypoxia CONTRAST: Omni 300 80ml TECHNIQUE: After the administration of intravenous contrast, 2 mm axial images were acquired from the pulmonary apices to the posterior costophrenic angles during the arterial phase. In addition, 1 mm lung kernel and 5 mm soft tissue kernel reconstructions were performed. 3-dimensional coronal oblique maximum int ensity projection (MIP) reformats, 8 mm axial MIP, and 5 mm coronal and sagittal MPR reformats were t hen performed through the thorax. For radiation dose reduction, the following was used: automated exp osure control, adjustment of mA and/or kV according to patient size. COMPARISON: Chest radiograph dated 07/24/2024, rib series dated 05/07/2024. FINDINGS: Image quality: Excellent. Large vessels: No filling defects within the opacified pulmonary arteries, accounting for motion and contrast timing. No evidence of acute aortic syndrome or aortic aneurysm. Lungs and pleura: Small infiltrates/atelectasis in posterior aspect of left lung base is seen. Linear scarring/atelectasis in posterior medial aspect of bilateral lung bases also noted. No pleural effus ions. No pneumothorax. No suspicious pulmonary nodules which require follow up. Mediastinum: Heart size is mildly enlarged. No pericardial effusion. Prosthetic aortic valve is seen. No large vessel abnormality. Two-vessel coronary artery atherosclerotic calcifications are noted. No mediastinal adenopathy by size criteria. Chest wall and lower neck: Thyroid is unremarkable. No axillary or supraclavicular adenopathy by size . Bones: No aggressive osseous abnormality. Upper Abdomen: Unremarkable. IMPRESSION: 1. No pulmonary embolus. 2. Small infiltrate versus atelectasis in posterior aspect of left lung base. No pleural effusion or pneumothorax. Airway is patent. 3. Mild cardiomegaly, no pericardial effusion. Two-vessel coronary artery atherosclerotic calcificati ons. No thoracic aortic aneurysm. No mediastinal or hilar lymphadenopathy. Reviewed by: Dilip Gallegos MD on 07/25/2024 2:21 PM PDT Approved by: Dilip Gallegos MD on 07/25/2024 2:21 PM PDT Station ID: [id number]
[2024-07-25] MEDS: ATORVASTATIN 10 MG TABLET PO SCH (20:24)
[2024-07-25] MEDS: cefTRIAXone 2 GM in SODIUM CHLORIDE 0.9% MINIBAG 100 ML IV SCH (20:24)
[2024-07-25] MEDS ORDERED: ATORVASTATIN CALCIUM 20 MG PO SCH (21:00)
--- NOTE | 2024-07-26 08:08 | Discharge Plan ---
Discharge Plan Problem Reviewed?: Yes Disposition: Home, Self Care Condition: Fair Diet: Regular Activity Restrictions: Activity as Tolerated Shower Restrictions: No Driving Restrictions: Yes (no driving) Assistance Devices: [facility] Concerns: You came to the emergency room because you are having waves of weakness where you were unable to get out of the bed and slid off the bed. You had done it twice. And on the day of admission, you could not get back in bed so your called EMS and you are brought to the emergency room. You reported having a fever before you came to the emergency room but in the emergency room you did not have a fever. We found you to have low oxygen level. Mild memory loss problems. And a history of worsening left knee pain that you were going to get taken care of with a knee replacement. We did a workup to find out why you are oxygen was so low and we make sure you did not have pneumonia, blood clots to the lung, heart attack, congestive heart failure, lung scarring, medication reaction, or a new irregular heart rhythm. You are known to have atrial fibrillation and that is not new for you. In the emergency room that was not a problem for you. Overnight, we did an educated guess of what could possibly what was wrong with you and treated you with antibiotics and you also also shared with us that you had an occasional tickle in your throat with swallowing and a feeling of food getting stuck. We think that it is a problem of aging. As we get older we lose sight, we lose her hearing, and we also lose a normal reflexes of normal swallowing. We think that food sometimes collects on the backside of your tonsillar folds and cause you to start coughing. We do not think you are actu ally choking when we watched you swallow in the hospital. Plan of Treatment: 1. You are ready for discharge as your oxygen level has been normal. You received 2 doses of antibiotics. You have no fever. No elevated white cell count. Normal chest x-ray without pneumonia. As such I am not sending you home on antibiotics. 2. We do have a CT of the chest and an echocardiogram result. Please share that with Dr. Kadie Paul and the anesthesiologist that we will be doing your case for your knee replacement. This will be helpful for them when they take care of you. 3. "If you continue to feel like you are having a slight choking when you swallow, please have your doctor send you to see speech therapy. [place] need to be sent to [place] or to [place]. The speech therapist can then work with you about normal swallowing mechanisms and how to avoid getting food or liquids aspirated into your lungs. Care Goals: At this point your main goal is to get your knee operated on so that you can stop having pain Assessment: patient is alert and oriented to person, place, time and situation. Occasionally loses train of thought. Does endorse some mild memory loss but his / DPOA and his daughter are supportive and will be continuing through on the plan for his knee replacement and his rehab No Smoking: If you smoke, Please STOP! Call for help. Follow-up with: Beth Peralta MD [Primary Care Provider] -
[2024-07-26 08:59] VITALS: O2SAT 95
[2024-07-26 09:24] VITALS: BP 134/80
--- NOTE | 2024-07-26 10:16 | DISCHARGE SUMMARY ---
Discharge Summary Admit Date: 07/25/24 Discharge Date: 07/26/24 Discharging Provider: Blanca Leary MD Primary Care Provider: Beth Peralta MD Code Status: Do Not Attempt Resuscitation Condition at Discharge: Fair Discharge Disposition: 01 Home, Self Care - DIAGNOSES Discharge Diagnoses with Status of Each Condition: 1. Acute hypoxemic respiratory failure 2. Dysphagia 3. Paroxysmal atrial fibrillation 4. Hyperlipidemia 5 hypertension - HPI History of Present Illness: 84M c paroxysmal afib not on anticoagulation, HTN, and HLD presenting with report of generalized weakness at home. Patient is pleasant and has underlying cognitive memory impairment and hence not a good historian. What is gathered is that patient for the past couple of days has been generalized weak. Today he slide off the bed twice. Most recently tonight, he was not able to get back up and hence EMS was called. Patient reportedly had a fever and was noted to be hypoxemic. He states not URI sxs and he did not feel out of breath. No chest pain. No n/v/d. No travel. No sick contact. He reportedly was tested at home with negative COVID home test. Patient does report chocking on food/liquid frequently. Here in the ED, patient was noted for hypoxemia mid 80s. Patient did well on NC O2 support. CXR negative for acute infiltrate. Patient was given abx. ED staff reached out to Hospital Medicine for assistance with medical management. - Past Medical History Cardiovascular: reports: Hypertension Respiratory: reports: None Neuro: reports: None Endocrine/Autoimmune: reports: None GI: reports: Colon polyps, Other : reports: Benign prostate hypertrophy, Frequency, Retention, Nocturia HEENT: reports: Macular degeneration, Chronic hearing loss, Chronic vision loss Psych: reports: Depression Musculoskeletal: reports: Osteoarthritis, Chronic back pain, Other Derm: reports: Other MRSA Hx?: No - Past Surgical History General: reports: Appendectomy, Colonoscopy Ortho: reports: Rotator cuff repair, Other Cardiovascular: reports: AAA, Valve replacement, Other HEENT: reports: Cataracts Derm: reports: Skin cancer surgery - CONSULTS | PROCEDURES Procedures: Chest x-ray is without acute cardiopulmonary process Chest/thorax CT angiogram did not have pulmonary emboli. He has small infiltrate versus atelectasis in the posterior aspect of the left lung base. No pleural effusion or pneumothorax. Airway was patent. Mild cardiomegaly no pericardial effusion. Two-vessel coronary artery calcifications. No thoracic aneurysm. Blood cultures are negative - HOSPITAL COURSE Hospital Course: I placed him in observation because it was not clear why he was hypoxic. Was it a cardiac source or a pulmonary source?. He does give a vague history of feeling that food is getting stuck in his throat or a tickle in his throat with swallowing which then induces a coughing spasm. We think he may be developing some mild dyscoordinate swallowing mechanism causing mild aspiration and cough. CT of the chest was negative for pneumonia, or pleural effusion, or pulmonary emboli. There were no true opacities indicating that he had pneumonia but did have a small area of atelectasis. Echocardiogram was done to make sure he did not have congestive heart failure and the echo showed a normal ejection fractio n, intact valvular repair. No elevated pulmonary pressures. Overnight, with empiric antibiotic therapy for "bronchitis", the patient's hypoxemia resolved. My thought processes that this gentleman may be having burst of A-fib causing temporary CHF. Or slight aspiration. But I do not believe he is having acute bronchitis or pneumonia. We kept the patient overnight 1 more night to make sure that A-fib with RVR was not causing bouts of sudden CHF and sudden hypoxia. None were present. As such the patient was discharged in stable condition. His plan is to get a knee replacement with orthopedics in [place]. He is seeing the surgeon today. An epidural will be in place for 2 days he tells me. And then on day 3 he will be considered for discharge after 3 midnights. From there he will go to a residential facility for rehab. Then home. Home will be with home health PT. Discharge exam had a temperature of 36.6. Heart rate 70. Blood pressure 127/72. Respirations 18. 95% on room air. He is a 5 foot 10 inch elderly male who weighs 66 kg. Well-groomed well-nourished and looks stated age. Very pleasant. Chrissy family at the bedside. He is oriented to person, place, time. He will loses track of thought and midsentence and forget what he was trying to say. He is lamenting that he is starting to lose his memory. Neck is supple. Lungs are clear. Regular rate and rhythm with a slight systolic ejection murmur at the apex. Nonradiating. Unchanging with position. Abdomen is soft, nontender. Normal bowel sounds. The left knee has degenerative joint destructive changes with deformity of anatomy. But no warmth or effusion. He is able to get up out of the bed on his own and using a walker to get to the bathroom slowly because of knee pain but able to do it on his own. This document was made in part using voice recognition software. While efforts are made to proofread this document, sound alike and grammatical errors may occur. - ALLERGIES Allergies/Adverse Reactions: Allergies Allergy/AdvReac Type Severity Reaction Status Date / Time Sulfa (Sulfonamide Allergy Unknown Verified 07/24/24 21:15 Antibiotics) - MEDICATIONS Home Medications: Ambulatory Orders Medication Instructions Recorded Confirmed Atorvastatin Calcium [Lipitor] 20 mg PO QPM 07/10/14 07/24/24 Amiodarone [Pacerone] 100 mg PO DAILY 11/14/20 07/24/24 FLUoxetine [PROzac] 10 mg PO DAILY 11/14/20 07/24/24 Cholecalciferol [Vitamin D3] 5,000 unit PO QPM 12/23/20 07/24/24 Alpha Lipoic Acid 600 mg PO QPM 03/20/23 07/24/24 Multivit-Min/Ferrous Sulfate [One 1 each PO DAILY 03/20/23 07/24/24 Daily Multivit-Mineral Tab] amLODIPine [Norvasc] 5 mg PO DAILY #30 tablet 06/08/24 07/24/24 Aspirin [Aspirin Regimen] 81 mg PO DAILY 07/24/24 07/24/24 Glucosamine HCl/Chondroitin Sanchez 1 each PO QPM 07/24/24 07/24/24 [Glucosamine-Chondroitin Cap] Challenge-3/Dha/Epa/Fish Oil [Fish Oil 1 each PO DAILY 07/24/24 07/24/24 1,000 mg Softgel] - LABS Result Diagrams: 07/25/24 05:32 07/25/24 05:32 - SEPSIS Current Stage of Sepsis: Ruled out
== END 2024-07-26 11:00 | disposition home or self-care (01) | DRG 189 ==
LOC: EDBD → EDUNIT# → ED 21:11 → MS2 07-25 01:16
PROVIDERS: ADMIT Internal Medicine; ATTEND Specialist
DX: R09.02 Hypoxemia (principal); R50.9 Fever, unspecified; I48.91 Unspecified atrial fibrillation; J96.01 Acute respiratory failure with hypoxia; J98.11 Atelectasis; R13.10 Dysphagia, unspecified; I48.0 Paroxysmal atrial fibrillation; I95.1 Orthostatic hypotension; E78.5 Hyperlipidemia, unspecified; I10 Essential (primary) hypertension; T17.998A Other foreign object in respiratory tract, part unspecified causing other injury, initial encounter; M17.12 Unilateral primary osteoarthritis, left knee; R53.1 Weakness; R41.3 Other amnesia; N40.1 Benign prostatic hyperplasia with lower urinary tract symptoms; R33.8 Other retention of urine; R35.0 Frequency of micturition; R35.1 Nocturia; Z87.891 Personal history of nicotine dependence; Z66 Do not resuscitate; R00.0 Tachycardia, unspecified; Z95.2 Presence of prosthetic heart valve
CPT/HCPCS: 36415; 71045; 71275; 80053; 81001; 83605; 83735; 83880; 84100; 84145; 84443; 84484; 85025; 85379; 87040; 87633; 93005; 93307; 96365; 96366; 96368; 97162; 97165; 99285; A9270; Q9967; 87086